=== PATIENT | male | born 1940 | race Caucasian/White ===

== ENCOUNTER 2017-10-20 09:53 | Outpatient (CLI) | payer MEDICARE, BC ==
[~2017-10-20] VITALS: Ht 188 cm; Wt 77.3 kg
[2017-10-20] MEDS ORDERED: CALC-140 PO (10:12)
[2017-10-20] MEDS ORDERED: L GA1CAP2 PO (10:12)
[2017-10-20] MEDS ORDERED: AMLO10TA2 PO (10:12)
[2017-10-20] MEDS ORDERED: METH2.5T PO (10:12)
[2017-10-20] MEDS ORDERED: TRAM50TA2 PO (10:12)
[2017-10-20] MEDS ORDERED: HYDR25TA4 PO (10:12)
[2017-10-20] MEDS ORDERED: METO-333 PO (10:12)
[2017-10-20] MEDS ORDERED: GLUC1CAP37 PO (10:12)
[2017-10-20] MEDS ORDERED: PYRI100T2 PO (10:12)
[2017-10-20] MEDS ORDERED: CLOP75TA28 PO (10:12)
[2017-10-20] MEDS ORDERED: FLUT9.9S NS (10:12)
[2017-10-20] MEDS ORDERED: FOLI1TAB24 PO (10:12)
[2017-10-20] MEDS ORDERED: ASPI-999 PO (10:12)
[2017-10-20] MEDS ORDERED: HYDR200T46 PO (10:12)
[2017-10-20] MEDS ORDERED: CYAN-23 PO (10:12)
[2017-10-20] MEDS ORDERED: SIMV20TA3 PO (10:12)
[2017-10-20] MEDS ORDERED: NITR0.4T3 SL (10:12)
[2017-10-20] MEDS ORDERED: POTA10TA10 PO (10:13)
[2017-10-20 10:21] VITALS: BP 161/86
[2017-10-20 10:46] LABS: BASOPHILS % (AUTO) 0 % (0-10); EOSINOPHILS # (AUTO) 0.1 10^3/uL (0.0-0.3); EOSINOPHILS % (AUTO) 1 % (0-10); HEMATOCRIT 46 % (40-54); HEMOGLOBIN 15.4 G/DL (13.3-17.7); LYMPHOCYTES # (AUTO) 1.6 X 10^3 (1.0-4.0); LYMPHOCYTES % (AUTO) 10 % (12-44); MEAN CORPUSCULAR HEMOGLOBIN 31 PG (25-34); MEAN CORPUSCULAR HGB CONC 34 G/DL (32-36); MEAN CORPUSCULAR VOLUME 91 FL (80-99); MEAN PLATELET VOLUME 9.7 FL (7.4-10.4); MONOCYTES % (AUTO) 6 % (0-12); NEUTROPHILS % (AUTO) 83 % (42-75); PLATELET COUNT 218 10^3/uL (130-400); RED BLOOD COUNT 4.99 10^6/uL (4.35-5.85); RED CELL DISTRIBUTION WIDTH 15.3 % (10.0-14.5); WHITE BLOOD COUNT 15.7 10^3/uL (4.3-11.0)
[2017-10-20 11:02] LABS: BUN/CREATININE RATIO 27; CALCIUM 10.4 MG/DL (8.5-10.1); CARBON DIOXIDE 28 MMOL/L (21-32); CHLORIDE 103 MMOL/L (98-107); CREATININE SERUM 0.93 MG/DL (0.60-1.30); GFR ESTIMATED > 60; GLUCOSE 87 MG/DL (70-105); POTASSIUM 3.4 MMOL/L (3.6-5.0); SODIUM 141 MMOL/L (135-145)
--- NOTE | 2017-10-20 11:02 | Diagnostic Imaging Report ---
CLINICAL INDICATION: Preop chest x-ray for sinus surgery. EXAM: Chest x-ray PA and lateral views. COMPARISON: None. FINDINGS: There is increased lung markings in right inferior perihilar region and medial left lung base which may represent atelectasis or scarring. There is no definite lung infiltrate seen. There is no pleural effusion or pneumothorax. There is postop changes to the chest consistent with CABG with sternotomy wires mediastinal clips. Cardiac silhouette and pulmonary vasculature is within normal limits. There are degenerative spurs throughout the thoracic spine. IMPRESSION: 1: There is suspected mild atelectasis or scarring in the inferior right perihilar region and medial left lung base. 2: There is no definite radiographic evidence of acute cardiopulmonary process. 3: Postop changes to the chest consistent with CABG. Dictated by: Dictated on workstation # [id number]
[2017-10-20 11:54] LABS: ANISOCYTOSIS SLIGHT; BAND NEUTROPHILS 3 %; BASOPHILS % (MANUAL) 0 %; EOSINOPHILS % (MANUAL) 0 %; LYMPHOCYTES % (MANUAL) 17 %; MONOCYTES % (MANUAL) 7 %; NEUTROPHILS % (MANUAL) 73 %
== END 2017-10-20 14:18 | disposition home or self-care (01) ==
LOC: PREOP 09:53 → EDUNIT# 10:00 → PREOP 14:18
PROVIDERS: ATTEND Otolaryngology Otolaryngology/Facial Plastic Surgery
DX: Z01.810 Encounter for preprocedural cardiovascular examination (principal); Z01.811 Encounter for preprocedural respiratory examination; Z01.812 Encounter for preprocedural laboratory examination; Z11.2 Encounter for screening for other bacterial diseases; J32.9 Chronic sinusitis, unspecified; J34.3 Hypertrophy of nasal turbinates; Z79.82 Long term (current) use of aspirin; Z79.02 Long term (current) use of antithrombotics/antiplatelets; Z79.899 Other long term (current) drug therapy
CPT/HCPCS: 36415; 71046; 80048; 85007; 85027; 87081; 93005

== ENCOUNTER 2017-10-22 06:19 | Day surgery (SDC) | payer MEDICARE ==
[~2017-10-22] VITALS: Ht 188 cm; Wt 77.3 kg
[~2017-10-22 06:19] MED LIST: AMLO10TA2 PO; ASPI-999 PO; CALC-140 PO; CLOP75TA28 PO; CYAN-23 PO; FLUT9.9S NS; FOLI1TAB24 PO; GLUC1CAP37 PO; HYDR200T46 PO; HYDR25TA4 PO; L GA1CAP2 PO; METH2.5T PO; METO-333 PO; NITR0.4T3 SL; POTA10TA10 PO; PYRI100T2 PO; SIMV20TA3 PO; TRAM50TA2 PO
[2017-10-22] MEDS ORDERED: HYDROCORTISONE 100 MG/2 ML (Solu-CORTEF) VIAL IV ONE (06:30)
[2017-10-22] MEDS ORDERED: AMPICILLIN/SULBACTAM INJECTION 1.5 GM in NS (IVPB) 50 ML IV ONE (06:30)
[2017-10-22 06:45] VITALS: BP 184/82
--- NOTE | 2017-10-22 06:59 | Progress Note-Pre Operative ---
Pre-Operative Progress Note H&P Reviewed The H&P was reviewed, patient examined and no changes noted. Date Seen by Provider: Oct 22, 2017 Time Seen by Provider: 06:45 Date H&P Reviewed: Oct 22, 2017 Time H&P Reviewed: 06:45 Pre-Operative Diagnosis: Bialt Chronic Sinusitis, Bilat HYper of Inf Turbs MIKE HSIEH MD Oct 22, 2017 6:59 am
[2017-10-22] MEDS ORDERED: CATHETER FLUSH 10 ML SYR IV PRN (07:00)
[2017-10-22] MEDS: LACTATED RINGERS 1,000 ML IV PRN ×2 (07:04→07:50)
[2017-10-22] MEDS ORDERED: COCAINE HCL 4% 2 ML SYR ONE (07:20)
[2017-10-22] MEDS ORDERED: LIDOCAINE/EPI 1%-1:200,000 (XYLOCAINE) 10 ML VIAL ONE (07:21)
[2017-10-22] MEDS ORDERED: PHENYLEPHRINE 0.5% NASAL SPR (NEO-SYNEPHRINE) REG ONE (07:21)
[2017-10-22] MEDS ORDERED: BSS 15 ML ONE (07:21)
[2017-10-22] MEDS ORDERED: LACTATED RINGERS 1,000 ML IV ONE (07:47)
[2017-10-22] MEDS ORDERED: ROCURONIUM 50 MG/5 ML (ZEMURON) VIAL IV ONE (07:47)
[2017-10-22] MEDS ORDERED: fentaNYL INJECTION 100 MCG/2 ML AMP ONE (07:47)
[2017-10-22] MEDS ORDERED: LIDOCAINE PF 2% 5 ML (XYLOCAINE) VIAL ONE (07:47)
[2017-10-22] MEDS ORDERED: LIDOCAINE JELLY 2% (XYLOCAINE) 5 ML TUBE ONE (07:47)
[2017-10-22] MEDS ORDERED: proPOfol 200 MG/20 ML (DIPRIVAN) VIAL IV ONE (07:47)
[2017-10-22] MEDS ORDERED: ONDANSETRON 4 MG/2 ML (SDV) Z0FRAN ONE (07:47)
[2017-10-22] MEDS ORDERED: MIDAZOLAM 2 MG/2 ML (VERSED) VIAL ONE (07:48)
[2017-10-22] MEDS ORDERED: GLYCOPYRROLATE 0.2 MG/ML (ROBINUL) 2 ML VIAL ONE (09:02)
[2017-10-22] MEDS ORDERED: NEOSTIGMINE (BLOXIVERZ ) 1 MG/1ML 10 ML VIAL ONE (09:02)
[2017-10-22] MEDS ORDERED: D5 1/2 NS W/KCL 20 MEQ/L 1,000 ML IV SCH (09:03)
--- NOTE | 2017-10-22 09:03 | Progress Note-Post Operative ---
Post-Operative Progess Note Surgeon (s)/Leather Carver (s) Surgeon MIKE HSIEH MD Leather Carver n/a Pre-Operative Diagnosis Bialt Chronic Sinusitis, Bilat HYper of Inf Turbs Post-Operative Diagnosis same Post-Op Procedure Note Date of Procedure: Oct 22, 2017 Name of Procedure Performed: Bilat ESS, Bilat REd of Inf Turbs Description & Findings Description and Findings: n/a Anesthesia Type get Estimated Blood Loss minimal Packing none. Specimen(s) collected/removed bilat chornic sinus disease MIKE HSIEH MD Oct 22, 2017 9:03 am
[2017-10-22] MEDS ORDERED: HYDROcodone/APAP 5 MG/325 MG (LORTAB) TAB PO PRN (09:15)
[2017-10-22] MEDS ORDERED: MEPERIDINE (DEMEROL) INJ 50 MG/ML IVP PRN (09:15)
[2017-10-22] MEDS ORDERED: predniSONE 20 MG TAB PO ONE (09:15)
[2017-10-22] MEDS ORDERED: ONDANSETRON 4 MG/2 ML (SDV) Z0FRAN IVP PRN (09:15)
[2017-10-22] MEDS ORDERED: ACETAMINOPHEN 325 MG TABLET/CAPLET (TYLENOL) PO PRN (09:15)
[2017-10-22] MEDS ORDERED: PROMETHAZINE INJ 25 MG/ML (PHENERGAN) AMP IVP PRN (09:15)
[2017-10-22] MEDS: morphine INJ 10 MG/ML 1ML (SYR OR VIAL) IVP PRN ×2 (09:23→09:30)
[2017-10-22] MEDS ORDERED: AMOX-355 PO (10:05)
[2017-10-22] MEDS ORDERED: ACHD5005 PO (10:05)
[2017-10-22] MEDS ORDERED: PRD20T PO (10:05)
[2017-10-22 10:15] VITALS: BP 179/101
[2017-10-22 10:45] VITALS: BP 179/98
[2017-10-22 11:15] VITALS: BP 169/79
[2017-10-22 11:40] VITALS: BP 169/79
[2017-10-22] MEDS ORDERED: HYDROcodone/APAP 5 MG/325 MG (LORTAB) TAB PO ONE (12:30)
--- OUTSIDE RECORDS SUMMARY | 2017-10-22 23:50 | XMS REPORT | Clinical Summary ---
Author Author Admin, NUZAHT Organization [facility] Address Unknown Phone Unavailable Allergies, Adverse Reactions, Alerts Allergy Name Reaction Description Start Date Severity Status Provider NEOSPORIN Critical Active SHASTA Rosenberg TETRACYCLINE Critical Active SHASTA Rosenberg BACTRIM Critical Active SHASTA Rosenberg HYZAAR Critical Active SHASTA Rosenberg Conditions or Problems Problem Name Problem Code Onset Date Status Entry Date Provider Comment Standard Description Annotate CORONARY HEART DISEASE 414.00 Active SHASTA Rosenberg Coronary atherosclerosis of unspecified type of vessel, [place] or graft HYPERTENSION 401.9 Active SHASTA Rosenberg Unspecified essential hypertension RHEUMATOID ARTHRITIS 714.0 Active SHASTA Rosenberg Rheumatoid arthritis FH STROKE V17.1 Active SHASTA Rosenberg Family history of stroke (cerebrovascular) OSTEOARTHRITIS 715.90 Active Ramos Myers MD Osteoarthrosis, unspecified whether generalized or localized, involving unspecified site CHOLELITHIASIS 574.20 Active Ramos Myers MD Calculus of gallbladder without mention of cholecystitis, without mention of obstruction AFTERCARE FLW SURG TEETH ORL CAV&DIGESTV SYS NEC V58.75 Active Ramos Myers MD Aftercare following surgery of the teeth,oral cavity and digestive system, NEC FINGER SUP FB W/O JUWAN OPEN WOUND&W/O MENTION INF 915.6 Active Ramos Myers MD Superficial foreign body (splinter) of fingers , without major open wound and without mention of infection JALEN NEOPLASM SKIN UPPER LIMB INCLUDING SHOULDER 216.6 Active Ramos Myers MD Benign neoplasm of skin of upper limb, including shoulder Hydrocele Active Mukund Rivera MD Hydrocele , unspecified Epididymitis, right 604.90 Active Mukund Rivera MD Orchitis and epididymitis, unspecified Spermatocele Active Mukund Rivera MD Spermatocele Urinary Retention 788.20 Active Mukund Rivera MD Retention of urine, unspecified Scrotal hematoma 608.83 Active Mukund Rivera MD Vascular disorders of male genital organs Medication List Medication Instructions Start Date Stop Date Generic Name NDC Status Provider Patient Instruction TRAMADOL HCL 50 MG TABS Take one by mouth daily as needed TRAMADOL HCL 82174697777 No Longer Active Mukund Rivera MD Active AMLODIPINE BESYLATE 10 MG TABS 1 tablet by mouth daily AMLODIPINE BESYLATE 22904422809 No Longer Active Mukund Rivera MD Active SIMVASTATIN 20 MG ORAL TABS 1 tab by mouth daily SIMVASTATIN 20191398436 No Longer Active Mukund Rivera MD Active PLAVIX 75 MG ORAL TABS 1 tab by mouth daily CLOPIDOGREL BISULFATE 45536358829 No Longer Active Mukund Rivera MD Active HYDROXYCHLOROQUINE SULFATE 200 MG TABS by mouth twice a day 12/15 HYDROXYCHLOROQUINE SULFATE 84496189047 No Longer Active Mukund Rivera MD Active CIPRO 500 MG TAB 1 tablet two times daily CIPROFLOXACIN HCL 52924177762 No Longer Active Mukund Rivera MD Active OMEPRAZOLE 20 MG CPDR 1 tablet by mouth daily, as needed OMEPRAZOLE 19220565494 No Longer Active Mukund Rivera MD Active OREILLY [employer] CAPS Take one by mouth daily PROBIOTIC PRODUCT 83083726866 Active Ramos Myers MD Active KLOR-CON 10 10 MEQ CR-TABS Take one by mouth daily POTASSIUM CHLORIDE 81768127420 Active Ramos Myers MD Active FUROSEMIDE 20 MG TAB 1 tablet by mouth daily FUROSEMIDE 29097366279 Active Ramos Myers MD Active METHOTREXATE 2.5 MG TABS 6 tabs once a week METHOTREXATE SODIUM 66763601819 Active Ramos Myers MD Active DICLOFENAC SODIUM 75 MG TBEC Take one by mouth daily as needed DICLOFENAC SODIUM 18675928866 No Longer Active Ramos Myers MD Active SIMVASTATIN 20 MG TABS 1 tab daily at bedtime SIMVASTATIN 37275681800 No Longer Active Ramos Myers MD Active EQL [id number] 500-400-166 MG TABS Take one by mouth daily [id number] 56280689478 Active Ramos Myers MD Active CALCIUM 1500 MG TAB Take one by mouth daily CALCIUM CARBONATE 84269690629 Active Ramos Myers MD Active B-12 1000 MCG CR-TABS Take one by mouth daily CYANOCOBALAMIN 27158120222 Active Ramos Myers MD Active VITAMIN B-6 100 MG TABS Take one by mouth daily PYRIDOXINE HCL 32438283470 Active Ramos Myers MD Active ASPIRIN 81 MG TAB 1 tablet by mouth daily ASPIRIN 64870015649 Active Ramos Myers MD Active FOLIC ACID 1 MG TABS Take one by mouth daily FOLIC ACID 82482421646 Active Ramos Myers MD Active HYDROCHLOROTHIAZIDE 25 MG TABS 1 tablet by mouth daily HYDROCHLOROTHIAZIDE 81380554314 Active Ramos Myers MD Active METOPROLOL SUCCINATE ER 25 MG [id number] Take one by mouth twice daily METOPROLOL SUCCINATE 19599307086 Active Ramos Myers MD Active SIMVASTATIN 20 MG TABS 1 tab daily at bedtime SIMVASTATIN 20 MG TABS 476617 SIMVASTATIN Inactive DICLOFENAC SODIUM 75 MG TBEC Take one by mouth daily as needed DICLOFENAC SODIUM 75 MG TBEC 958701 DICLOFENAC SODIUM Inactive OMEPRAZOLE 20 MG CPDR 1 tablet by mouth daily, as needed OMEPRAZOLE 20 MG CPDR 693252 OMEPRAZOLE Inactive HYDROXYCHLOROQUINE SULFATE 200 MG TABS by mouth twice a day 12/15 HYDROXYCHLOROQUINE SULFATE 200 MG TABS 633552 HYDROXYCHLOROQUINE SULFATE Inactive PLAVIX 75 MG ORAL TABS 1 tab by mouth daily PLAVIX 75 MG ORAL TABS 088973 CLOPIDOGREL BISULFATE Inactive SIMVASTATIN 20 MG ORAL TABS 1 tab by mouth daily SIMVASTATIN 20 MG ORAL TABS 412534 SIMVASTATIN Inactive AMLODIPINE BESYLATE 10 MG TABS 1 tablet by mouth daily AMLODIPINE BESYLATE 10 MG TABS 460782 AMLODIPINE BESYLATE Inactive TRAMADOL HCL 50 MG TABS Take one by mouth daily as needed TRAMADOL HCL 50 MG TABS 146560 TRAMADOL HCL Inactive CIPRO 500 MG TAB 1 tablet two times daily CIPRO 500 MG TAB 899752 CIPROFLOXACIN HCL Inactive Advance Directives Directive Description Start Date PERMISSION TO [facility]ARE [facility]IV[facility] WILL ON FILE Vital Signs Date Name Value Unit Range Description blood pressure, diastolic - 8462-4 70 mm[Hg] BP desai blood pressure, systolic - 8480-6 120 mm[Hg] BP sys pulse rate E&M - 8867-4 75 /min Heart rate temperature E&M 98.4 [degF] Body temperature weight E&M - 3141-9 181 [lb_av] Weight Measured blood pressure, diastolic - 8462-4 78 mm[Hg] BP desai blood pressure, systolic - 8480-6 165 mm[Hg] BP sys weight E&M - 3141-9 183 [lb_av] Weight Measured Encounters Code Encounter Date Provider Facility CPT-21384 Level 3 Est. Patient 23:28:14 CDT Mukund Rivera MD [facility] CPT-90865 Level 3 Est. Patient 14:56:41 CORE FITTER Mukund Rivera MD [facility] CPT-89754 Level 3 Est. Patient 16:05:06 CORE FITTER Mukund Rivera MD [facility] CPT-80397 Level 3 Est. Patient 14:06:16 CORE FITTER Mukund Rivera MD [facility] CPT-19419 Level 3 New Patient 14:46:52 CORE FITTER Mukund Rivera MD [facility] CPT-18701 Level 2 Est. Patient 14:01:01 CDT Ramos Myers MD [facility] CPT-63631 Level 2 Est. Patient 16:14:11 CDT Ramos Myers MD [facility] CPT-63861 Level 2 Est. Patient 14:39:48 CDT Ramos Myers MD [facility] CPT-65182 Level 3 Est. Patient 10:13:26 CORE FITTER Ramos Myers MD [facility] Procedures Code Procedure Name Date Entry Date Standard Description CPT-A4357 Overnight urinary bag 10:24:50 CDT CPT-A4340 Indwell urin cath coude 10:24:50 CDT CPT-01313 Insert temp indwelling bld cath comp 10:24:50 CDT 01/14 CPT-A4340 Indwell urin cath coude 15:42:37 CDT CPT-03736 Postop F/U Visit 20:56:46 CDT CPT-08948 Aspiration hydrocele 15:23:51 CORE FITTER CPT-LR Lesion Removal 14:01:01 CDT CPT-LR Lesion Removal 16:14:11 CDT CPT-99608 Postop F/U Visit 15:07:25 CORE FITTER
--- OUTSIDE RECORDS SUMMARY | 2017-10-22 23:51 | XMS REPORT | Clinical Summary ---
Author Author Admin, NUZHAT Organization [facility] Address Unknown Phone Unavailable Allergies, Adverse [...] Coronary atherosclerosis of unspecified type of vessel, [place] or graft HYPERTENSION 401.9 Active SHASTA Rosenberg [...] JUWAN OPEN WOUND&W/O MENTION INF 915.6 Active Rmaos Myers MD Superficial foreign body (splinter) of fingers , without major open wound and without mention of infection JALEN NEOPLASM SKIN UPPER LIMB INCLUDING SHOULDER 216.6 Active Ramos Myers MD Benign neoplasm of skin of upper limb, including shoulder Hydrocele Active Mukund Rivera MD Hydrocele , unspecified Epididymitis, right 604.90 Active Mukund Rivear MD Orchitis and epididymitis, unspecified Spermatocele Active [...] by mouth daily as needed TRAMADOL HCL 09447674389 No Longer Active Mukund Rivera MD Active AMLODIPINE BESYLATE 10 MG TABS 1 tablet by mouth daily AMLODIPINE BESYLATE 31389088303 No Longer Active Mukund Rivera MD Active SIMVASTATIN 20 MG ORAL TABS 1 tab by mouth daily SIMVASTATIN 68536784759 No Longer Active Mukund Rivera MD Active PLAVIX 75 MG ORAL TABS 1 tab by mouth daily CLOPIDOGREL BISULFATE 06396602963 No Longer Active Mukund Rivera MD Active HYDROXYCHLOROQUINE SULFATE 200 MG TABS by mouth twice a day 12/15 HYDROXYCHLOROQUINE SULFATE 75233114271 No Longer Active Mukund Rivera MD Active CIPRO 500 MG TAB 1 tablet two times daily CIPROFLOXACIN HCL 80341863322 No Longer Active Mukund Rivera MD Active OMEPRAZOLE 20 MG CPDR 1 tablet by mouth daily, as needed OMEPRAZOLE 67908901245 No Longer Active Mukund Rivera MD Active [employer] CAPS Take one by mouth daily PROBIOTIC PRODUCT 77075174494 Active Ramos Myers MD Active KLOR-CON 10 10 MEQ CR-TABS Take one by mouth daily POTASSIUM CHLORIDE 88819705949 Active Ramos Myers MD Active FUROSEMIDE 20 MG TAB 1 tablet by mouth daily FUROSEMIDE 82235376674 Active Ramos Myers MD Active METHOTREXATE 2.5 MG TABS 6 tabs once a week METHOTREXATE SODIUM 27870401075 Active Ramos Myers MD Active DICLOFENAC SODIUM 75 MG TBEC Take one by mouth daily as needed DICLOFENAC SODIUM 99206213343 No Longer Active Ramos Myers MD Active SIMVASTATIN 20 MG TABS 1 tab daily at bedtime SIMVASTATIN 82954892479 No Longer Active Ramos Myers MD Active EQL [id number]-[id number]-GLI 500-400-166 MG TABS Take one by mouth daily [id number]-[id number]-PLR 80624832389 Active Ramos Myers MD Active CALCIUM 1500 MG TAB Take one by mouth daily CALCIUM CARBONATE 20946529143 Active Ramos Myers MD Active B-12 1000 MCG CR-TABS Take one by mouth daily CYANOCOBALAMIN 99721777684 Active Ramos Myers MD Active VITAMIN B-6 100 MG TABS Take one by mouth daily PYRIDOXINE HCL 16028430318 Active Ramos Myers MD Active ASPIRIN 81 MG TAB 1 tablet by mouth daily ASPIRIN 97069172136 Active Ramos Myers MD Active FOLIC ACID 1 MG TABS Take one by mouth daily FOLIC ACID 90789560103 Active Ramos Myers MD Active HYDROCHLOROTHIAZIDE 25 MG TABS 1 tablet by mouth daily HYDROCHLOROTHIAZIDE 29581997484 Active Ramos Myers MD Active METOPROLOL SUCCINATE ER 25 MG IN37F-BFA Take one by mouth twice daily METOPROLOL SUCCINATE 20206238279 Active Ramos Myers MD Active SIMVASTATIN 20 MG TABS 1 tab daily at bedtime SIMVASTATIN 20 MG TABS 172745 SIMVASTATIN Inactive DICLOFENAC SODIUM 75 MG TBEC Take one by mouth daily as needed DICLOFENAC SODIUM 75 MG TBEC 544791 DICLOFENAC SODIUM Inactive OMEPRAZOLE 20 MG CPDR 1 tablet by mouth daily, as needed OMEPRAZOLE 20 MG CPDR 087468 OMEPRAZOLE Inactive HYDROXYCHLOROQUINE SULFATE 200 MG TABS by mouth twice a day 12/15 HYDROXYCHLOROQUINE SULFATE 200 MG TABS 389113 HYDROXYCHLOROQUINE SULFATE Inactive PLAVIX 75 MG ORAL TABS 1 tab by mouth daily PLAVIX 75 MG ORAL TABS 751336 CLOPIDOGREL BISULFATE Inactive SIMVASTATIN 20 MG ORAL TABS 1 tab by mouth daily SIMVASTATIN 20 MG ORAL TABS 874062 SIMVASTATIN Inactive AMLODIPINE BESYLATE 10 MG TABS 1 tablet by mouth daily AMLODIPINE BESYLATE 10 MG TABS 510320 AMLODIPINE BESYLATE Inactive TRAMADOL HCL 50 MG TABS Take one by mouth daily as needed TRAMADOL HCL 50 MG TABS 339553 TRAMADOL HCL Inactive CIPRO 500 MG TAB 1 tablet two times daily CIPRO 500 MG TAB 350283 CIPROFLOXACIN HCL Inactive Advance Directives Directive Description [...] Measured Encounters Code Encounter Date Provider Facility CPT-53557 Level 3 Est. Patient 23:28:14 CDT Mukund Rivera MD [facility] CPT-00570 Level 3 Est. Patient 14:56:41 COST ACCOUNTING MANAGER Mukund Rivera MD [facility] CPT-49752 Level 3 Est. Patient 16:05:06 COST ACCOUNTING MANAGER Mukund Rivera MD [facility] CPT-80925 Level 3 Est. Patient 14:06:16 COST ACCOUNTING MANAGER Mukund Rivera MD [facility] CPT-88902 Level 3 New Patient 14:46:52 COST ACCOUNTING MANAGER Mukund Rivera MD [facility] CPT-06116 Level 2 Est. Patient 14:01:01 CDT Ramos Myers MD [facility] CPT-90928 Level 2 Est. Patient 16:14:11 CDT Ramos Myers MD [facility] CPT-48857 Level 2 Est. Patient 14:39:48 CDT Ramos Myers MD [facility] CPT-49434 Level 3 Est. Patient 10:13:26 COST ACCOUNTING MANAGER Ramos Myers MD [facility] Procedures Code Procedure Name Date Entry Date Standard Description CPT-A4357 Overnight urinary bag 10:24:50 CDT CPT-A4340 Indwell urin cath coude 10:24:50 CDT CPT-89134 Insert temp indwelling bld cath comp 10:24:50 CDT 01/14 CPT-A4340 Indwell urin cath coude 15:42:37 CDT CPT-76687 Postop F/U Visit 20:56:46 CDT CPT-48364 Aspiration hydrocele 15:23:51 COST ACCOUNTING MANAGER CPT-LR Lesion Removal 14:01:01 CDT CPT-LR Lesion Removal 16:14:11 CDT CPT-91478 Postop F/U Visit 15:07:25 COST ACCOUNTING MANAGER
--- OUTSIDE RECORDS SUMMARY | 2017-10-22 23:51 | XMS REPORT ---
Author Author [facility] Medical Staff Organization [facility] Address [address] [place] [id number] Phone [phone] Summary purpose TRANSITION OF CARE AUTO GENERATION Chief Complaint and Reason for Visit No authorized Reason for Visit (Admitting Diagnosis) is available for this visit. Problem list No authorized problems tracked for continuity of care are available for this visit. Encounters No authorized problems tracked for encounter diagnoses are available for this visit. Medications No medications recorded for this patient visit Allergies, adverse reactions, alerts Allergen Category Ingredient Status Reaction Severity Onset Bactrim Drug Allergy Bactrim Confirmed or Verified itching Bactrim Drug Allergy Trimethoprim Confirmed or Verified itching Bactrim Drug Allergy Sulfamethoxazole Confirmed or Verified itching Neosporin Drug Allergy Neosporin Confirmed or Verified just doesn't heal, redness Neosporin Drug Allergy Gramicidin D Confirmed or Verified just doesn't heal , redness Neosporin Drug Allergy Polymyxin B Confirmed or Verified just doesn't heal , redness Neosporin Drug Allergy Neomycin Confirmed or Verified just doesn't heal, redness Neosporin Drug Allergy Bacitracin Confirmed or Verified just doesn't heal, redness Tetracycline Drug Allergy Tetracycline Confirmed or Verified itching Hyzaar Drug Allergy Hyzaar Confirmed or Verified itching Hyzaar Drug Allergy Hyzaar Confirmed or Verified Nausea Hyzaar Drug Allergy Losartan Confirmed or Verified Nausea Hyzaar Drug Allergy Losartan Confirmed or Verified itching Hyzaar Drug Allergy hydrochlorothiazide Confirmed or Verified Nausea Hyzaar Drug Allergy hydrochlorothiazide Confirmed or Verified itching Immunizations No immunizations recorded for this patient visit Relevant diagnostic tests and/or laboratory data RESULTS Chemistry [id number]:42:00 Result Normal Range Units Sodium 142 134-145 mEq/l Potassium 3.7 3.5-5.1 mEq/l Chloride 104 98-107 mEq/l CO2 H 28.5 22-28 mEq/l Glucose 91 70-105 mg/dl BUN H 19 7-18 mg/dl Creatinine 1.14 0.6-1.3 mg/dl Calcium 9.5 8.4-10.2 mg/dl TP - Total Protein 7.0 6.0-8.3 g/dl Albumin 4.2 3.5-5 g/dl Bilirubin - Total 0.8 0.1-1.0 mg/dl AST 42 10-42 IU/L ALT 54 12-65 IU/L ALP 79 39-107 IU/L Osmolality 285.0 280-300 mOsm/L Albumin/Globulin Ratio 1.5 0-8 Anion GAP 9.5 8-16 BUN/Creatinine Ratio 16.7 10-20 Estimated GFR 63 >=60 mL/min/1.7 C-Reactive Protein <=0.2 0-1 mg/dl Hematology :42:00 Result Normal Range Units WBC 8.4 4.8-10.8 103/uL RBC 4.8 4.7-6.1 106/uL HGB 15.1 13.0-18.0 g/dl HCT 45.0 41.9-52.0 % MCV 93.9 80-94 FL MCH H 31.5 27-31 pg MCHC 33.6 33-37 g/dl RDW 14.0 11.5-15.5 % PLT 188 130-400 103/uL MPV 10.0 7.3-10.4 FL Neutro % H 71.1 40-70 % Lymph % L 15.1 20-40 % [place] % 9.7 0-10.0 % Eos % 3.1 0-7.0 % Baso % 0.6 0-2 % Neutro # 5.9 1.5-7.5 103/uL Lymph # 1.3 0.9-4.0 103/uL [place] # 0.8 0-0.8 103/uL Eos # 0.3 0-0.6 103/uL Baso # 0.1 0-0.1 103/uL [place]ology - [place] [place]:00 Result Normal Range Units Sed Rate 3 0-20 Radiology Results :42:00 Result Normal Range Units MPV 10.0 7.3-10.4 FL History of procedures No procedures recorded for this patient visit. Functional status No functional or cognitive status observations are available for this visit. Vital signs No authorized vital signs are available for this visit. Social history No Social History or smoking status observations were recorded for this visit. ( Unknown if ever smoked.) Treatment Plan No treatment plan text is available for this visit. Hospital discharge instructions No discharge instruction text is available for this visit.
--- OUTSIDE RECORDS SUMMARY | 2017-10-22 23:51 | XMS REPORT | Clinical Summary ---
Author Author Admin, NUZHAT Organization 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 Hematuria 599.70 Active Mukund Rivera MD Hematuria, unspecified Acute UTI 599.0 Active Mukund Rivera MD Urinary tract infection, site not specified Bladder Calculus Active Mukund Rivera MD Renal calculus, left 592.0 Active Mukund Rivera MD Calculus of kidney Medication List Medication Instructions Start Date Stop Date Generic Name NDC Status Provider Patient Instruction TRAMADOL HCL 50 MG ORAL TABLET Take one by mouth daily as needed TRAMADOL HCL 21657752694 No Longer Active Mukund Rivera MD Active AMLODIPINE BESYLATE 10 MG ORAL TABLET 1 tablet by mouth daily AMLODIPINE BESYLATE 91010912503 No Longer Active Mukund Rivera MD Active SIMVASTATIN 20 MG ORAL TABLET 1 tab by mouth daily SIMVASTATIN 17625390844 No Longer Active Mukund Rivera MD Active PLAVIX 75 MG ORAL TABLET 1 tab by mouth daily CLOPIDOGREL BISULFATE 94764707071 No Longer Active Mukund Rivera MD Active HYDROXYCHLOROQUINE SULFATE 200 MG ORAL TABLET by mouth twice a day HYDROXYCHLOROQUINE SULFATE 78361988545 No Longer Active Mukund Rivera MD Active CIPRO 500 MG ORAL TABLET 1 tablet two times daily CIPROFLOXACIN HCL 63910867039 No Longer Active Mukund Rivera MD Active OMEPRAZOLE 20 MG ORAL CAPSULE DELAYED RELEASE 1 tablet by mouth daily, as needed OMEPRAZOLE 47003838256 No Longer Active uMkund Rivera MD Active OREILLY [facility] ORAL CAPSULE Take one by mouth daily PROBIOTIC PRODUCT 55130767269 Active Ramos Meyrs MD Active KLOR-CON 10 10 MEQ ORAL TABLET EXTENDED RELEASE Take one by mouth daily 05/31 POTASSIUM CHLORIDE 98011212981 Active Ramos Myers MD Active FUROSEMIDE 20 MG ORAL TABLET 1 tablet by mouth daily FUROSEMIDE 52687810003 Active Ramos Myers MD Active METHOTREXATE 2.5 MG ORAL TABLET 6 tabs once a week METHOTREXATE SODIUM 84690428792 Active Ramos Myers MD Active DICLOFENAC SODIUM 75 MG ORAL TABLET DELAYED RELEASE Take one by mouth daily as needed DICLOFENAC SODIUM 27360468330 No Longer Active Ramos Myers MD Active SIMVASTATIN 20 MG ORAL TABLET 1 tab daily at bedtime SIMVASTATIN 50736882388 No Longer Active Ramos Myers MD Active EQL [id number] 500-400-166 MG ORAL TABLET Take one by mouth daily [id number] 45010769785 Active Ramos Myers MD Active CALCIUM CARBONATE 1500 (600 Ca) MG ORAL TABLET Take one by mouth daily 11/29 CALCIUM CARBONATE 28786427377 Active Ramos Myers MD Active B-12 1000 MCG ORAL TABLET EXTENDED RELEASE Take one by mouth daily CYANOCOBALAMIN 10039864569 Active Ramos Myers MD Active VITAMIN B-6 100 MG ORAL TABLET Take one by mouth daily PYRIDOXINE HCL 19878829812 Active Ramos Myers MD Active ASPIRIN 81 MG ORAL TABLET 1 tablet by mouth daily ASPIRIN 65396557650 Active Ramos Myers MD Active FOLIC ACID 1 MG ORAL TABLET Take one by mouth daily FOLIC ACID 43943462022 Active Ramos Myers MD Active HYDROCHLOROTHIAZIDE 25 MG ORAL TABLET 1 tablet by mouth daily HYDROCHLOROTHIAZIDE 86863520020 Active Ramos Myers MD Active METOPROLOL SUCCINATE ER 25 MG ORAL TABLET EXTENDED RELEASE 24 HOUR Take one by mouth twice daily METOPROLOL SUCCINATE 63497560679 Active Ramos Myers MD Active SIMVASTATIN 20 MG ORAL TABLET 1 tab daily at bedtime SIMVASTATIN 20 MG ORAL TABLET 754042 SIMVASTATIN Inactive DICLOFENAC SODIUM 75 MG ORAL TABLET DELAYED RELEASE Take one by mouth daily as needed DICLOFENAC SODIUM 75 MG ORAL TABLET DELAYED RELEASE 338084 DICLOFENAC SODIUM Inactive OMEPRAZOLE 20 MG ORAL CAPSULE DELAYED RELEASE 1 tablet by mouth daily, as needed OMEPRAZOLE 20 MG ORAL CAPSULE DELAYED RELEASE 119077 OMEPRAZOLE Inactive HYDROXYCHLOROQUINE SULFATE 200 MG ORAL TABLET by mouth twice a day HYDROXYCHLOROQUINE SULFATE 200 MG ORAL TABLET 612167 HYDROXYCHLOROQUINE SULFATE Inactive PLAVIX 75 MG ORAL TABLET 1 tab by mouth daily PLAVIX 75 MG ORAL TABLET 805048 CLOPIDOGREL BISULFATE Inactive SIMVASTATIN 20 MG ORAL TABLET 1 tab by mouth daily SIMVASTATIN 20 MG ORAL TABLET 717022 SIMVASTATIN Inactive AMLODIPINE BESYLATE 10 MG ORAL TABLET 1 tablet by mouth daily AMLODIPINE BESYLATE 10 MG ORAL TABLET 158292 AMLODIPINE BESYLATE Inactive TRAMADOL HCL 50 MG ORAL TABLET Take one by mouth daily as needed TRAMADOL HCL 50 MG ORAL TABLET 653340 TRAMADOL HCL Inactive CIPRO 500 MG ORAL TABLET 1 tablet two times daily CIPRO 500 MG ORAL TABLET 218674 CIPROFLOXACIN HCL Inactive Advance Directives Directive Description Start Date PERMISSION TO SHARE LIVING WILL ON FILE Vital Signs Date Name Value Unit Range Description blood pressure, diastolic 66 mm[Hg] BP desai blood pressure, systolic 141 mm[Hg] BP sys pulse rate E&M 67 /min Heart rate temperature E&M 98.2 [degF] Body temperature weight E&M 176 [lb_av] Weight Measured blood pressure, diastolic 65 mm[Hg] BP desai blood pressure, systolic 142 mm[Hg] BP sys pulse rate E&M 85 /min Heart rate temperature E&M 98.3 [degF] Body temperature weight E&M 174 [lb_av] Weight Measured blood pressure, diastolic 74 mm[Hg] BP desai blood pressure, systolic 163 mm[Hg] BP sys pulse rate E&M 65 /min Heart rate temperature E&M 98.7 [degF] Body temperature weight E&M 172 [lb_av] Weight Measured blood pressure, diastolic 70 mm[Hg] BP desai blood pressure, systolic 125 mm[Hg] BP sys pulse rate E&M 70 /min Heart rate temperature E&M 98.4 [degF] Body temperature weight E&M 181 [lb_av] Weight Measured blood pressure, diastolic 72 mm[Hg] BP desai blood pressure, systolic 120 mm[Hg] BP sys pulse rate E&M 71 /min Heart rate temperature E&M 98.4 [degF] Body temperature weight E&M 181 [lb_av] Weight Measured blood pressure, diastolic 70 mm[Hg] BP desai blood pressure, systolic 120 mm[Hg] BP sys pulse rate E&M 75 /min Heart rate temperature E&M 98.4 [degF] Body temperature weight E&M 181 [lb_av] Weight Measured blood pressure, diastolic 78 mm[Hg] BP desai blood pressure, systolic 165 mm[Hg] BP sys weight E&M 183 [lb_av] Weight Measured Diagnostic Results Date Name Value Unit Range Description Office Visit: 3-Month Followup Post TURP - Chemistry RBC, urine, dipstick non-hemolyzed moderate protein, total urine random trace mg/dL Office Visit: 3-Month Followup Post TURP - Urinalysis pH, urine, semiquantitative 6 specific gravity, urine 1.015 ketones, urine, by test strip negative bilirubin, urine negative glucose, urine, semiquantitative negative urine color yellow appearance, urine clear leukocyte esterase, urine, by dipstick 2+ nitrite, urine, semiquantitative negative urobilinogen, urine, semiquantitative (dipstick) negative protein, urine, semiquantitative (dipstick) negative Encounters Code Encounter Date Provider Facility CPT-79439 Level 3 Est. Patient 10:36:44 [employer]NAGER [employer] Mukund Rivera MD [facility] CPT-03291 Level 3 Est. Patient 19:01:41 CDT Mukund Rivera MD [facility] CPT-30010 Level 3 Est. Patient 23:28:14 CDT Mukund Rivera MD [facility] CPT-31131 Level 3 Est. Patient 14:56:41 MANAGER SHE[employer] Mukund Rivera MD [facility] CPT-10658 Level 3 Est. Patient 16:05:06 MANAGER [employer] Mukund Rivera MD [facility] CPT-06495 Level 3 Est. Patient 14:06:16 MANAGER [employer] Mukund Rivera MD [facility] CPT-33952 Level 3 New Patient 14:46:52 MANAGER [employer] Mukund Rivera MD [facility] CPT-65038 Level 2 Est. Patient 14:01:01 CDT Ramos Myers MD [facility] CPT-01073 Level 2 Est. Patient 16:14:11 CDT Ramos Myers MD [facility] CPT-62983 Level 2 Est. Patient 14:39:48 CDT Ramos Myers MD [facility] CPT-02373 Level 3 Est. Patient 10:13:26 MANAGER [employer] Ramos Myers MD [facility] Procedures Code Procedure Name Date Entry Date Standard Description CPT-14444 Abd single AP View - XRAY USE ONLY 09:40:50 MANAGER [employer] CPT-20592 Postop F/U Visit 10:44:37 CDT CPT-09580 Abd single AP View - XRAY USE ONLY 09:47:35 CDT CPT-03110 Cystoscopy 19:01:42 CDT CPT-84879 Abd single AP View - XRAY USE ONLY 11:35:07 CDT CPT-61803 Postop F/U Visit 10:30:43 CDT CPT-A4357 Overnight urinary bag 10:24:50 CDT CPT-A4340 Indwell urin cath coude 10:24:50 CDT CPT-91389 Insert temp indwelling bld cath comp 10:24:50 CDT 01/14 CPT-A4340 Indwell urin cath coude 15:42:37 CDT CPT-10752 Postop F/U Visit 20:56:46 CDT CPT-52616 Aspiration hydrocele 15:23:51 MANAGER SHELL CPT-LR Lesion Removal 14:01:01 CDT CPT-LR Lesion Removal 16:14:11 CDT CPT-08138 Postop F/U Visit 15:07:25 MANAGER SHELL
--- OUTSIDE RECORDS SUMMARY | 2017-10-22 23:52 | XMS REPORT | Clinical Summary ---
Author Author Admin, E Organization [facility] Address Unknown Phone Unavailable Allergies, Adverse Reactions, [...] Coronary atherosclerosis of unspecified type of vessel, [place] or graft HYPERTENSION 401.9 Active SHASTA Rosenberg [...] Mukund Rivera MD Orchitis and epididymitis, unspecified Medication List Medication Instructions Start Date Stop Date Generic Name NDC Status Provider Patient Instruction CIPRO 500 MG TAB 1 tablet two times daily CIPROFLOXACIN HCL 47781187293 No Longer Active Mukund Rivera MD Active PLAVIX 75 MG ORAL TABS 1 tab by mouth daily CLOPIDOGREL BISULFATE 27010798313 Active Mukund Rivera MD Active SIMVASTATIN 20 MG ORAL TABS 1 tab by mouth daily SIMVASTATIN 31802346476 Active Mukund Rivera MD Active OMEPRAZOLE 20 MG CPDR 1 tablet by mouth daily, as needed OMEPRAZOLE 98981083307 No Longer Active Mukund Rivera MD Active [employer] [facility] [employer] Take one by mouth daily PROBIOTIC PRODUCT 99505752209 Active Ramos Myers MD Active KLOR-CON 10 10 MEQ CR-TABS Take one by mouth daily POTASSIUM CHLORIDE 64497009654 Active Ramos Myers MD Active FUROSEMIDE 20 MG TAB 1 tablet by mouth daily FUROSEMIDE 59593838289 Active Ramos Myers MD Active HYDROXYCHLOROQUINE SULFATE 200 MG TABS by mouth twice a day HYDROXYCHLOROQUINE SULFATE 49616073658 Active Ramos Myers MD Active METHOTREXATE 2.5 MG TABS 6 tabs once a week METHOTREXATE SODIUM 14749146138 Active Ramos Myers MD Active DICLOFENAC SODIUM 75 MG TBEC Take one by mouth daily as needed DICLOFENAC SODIUM 76559260858 No Longer Active Ramos Myers MD Active SIMVASTATIN 20 MG TABS 1 tab daily at bedtime SIMVASTATIN 65630491774 No Longer Active Ramos Myers MD Active AMLODIPINE BESYLATE 10 MG TABS 1 tablet by mouth daily AMLODIPINE BESYLATE 24134650718 Active Ramos Myers MD Active EQL [id number] 500-400-166 MG TABS Take one by mouth daily [id number] 29153855448 Active Ramos Myers MD Active CALCIUM 1500 MG TAB Take one by mouth daily CALCIUM CARBONATE 48091707525 Active Ramos Myers MD Active B-12 1000 MCG CR-TABS Take one by mouth daily CYANOCOBALAMIN 02581228496 Active Ramos Myers MD Active VITAMIN B-6 100 MG TABS Take one by mouth daily PYRIDOXINE HCL 94552012249 Active Ramos Myers MD Active ASPIRIN 81 MG TAB 1 tablet by mouth daily ASPIRIN 96754753498 Active Ramos Myers MD Active TRAMADOL HCL 50 MG TABS Take one by mouth daily as needed TRAMADOL HCL 39247538925 Active Ramos Myers MD Active FOLIC ACID 1 MG TABS Take one by mouth daily FOLIC ACID 90270717106 Active Ramos Myers MD Active HYDROCHLOROTHIAZIDE 25 MG TABS 1 tablet by mouth daily HYDROCHLOROTHIAZIDE 96189571612 Active Ramos Myers MD Active METOPROLOL SUCCINATE ER 25 MG [id number] Take one by mouth twice daily METOPROLOL SUCCINATE 00900354757 Active Ramos Myers MD Active SIMVASTATIN 20 MG TABS 1 tab daily at bedtime SIMVASTATIN 20 MG TABS 798363 SIMVASTATIN Inactive DICLOFENAC SODIUM 75 MG TBEC Take one by mouth daily as needed DICLOFENAC SODIUM 75 MG TBEC 567980 DICLOFENAC SODIUM Inactive OMEPRAZOLE 20 MG CPDR 1 tablet by mouth daily, as needed OMEPRAZOLE 20 MG CPDR 117068 OMEPRAZOLE Inactive CIPRO 500 MG TAB 1 tablet two times daily CIPRO 500 MG TAB 929476 CIPROFLOXACIN HCL Inactive Advance Directives Directive Description Start Date PERMISSION TO SHARE LIVING WILL ON FILE Vital Signs Date Name Value Unit Range Description blood pressure, diastolic - 8462-4 62 mm[Hg] BP desai blood pressure, systolic - 8480-6 120 mm[Hg] BP sys pulse rate E&M - 8867-4 72 /min Heart rate temperature E&M 96.5 [degF] Body temperature weight E&M - 3141-9 180.5 [lb_av] Weight Measured blood pressure, diastolic - 8462-4 61 mm[Hg] BP desai blood pressure, systolic - 8480-6 150 mm[Hg] BP sys pulse rate E&M - 8867-4 60 /min Heart rate temperature E&M 96.4 [degF] Body temperature weight E&M - 3141-9 179.5 [lb_av] Weight Measured Encounters Code Encounter Date Provider Facility CPT-44501 Level 3 Est. Patient 14:06:16 [employer] Mukund Rivera MD [facility] CPT-53228 Level 3 New Patient 14:46:52 [employer] Mukund Rivera MD [facility] CPT-68762 Level 2 Est. Patient 14:01:01 CDT Ramos Myers MD [facility] CPT-06357 Level 2 Est. Patient 16:14:11 CDT Ramos Myers MD [facility] CPT-44814 Level 2 Est. Patient 14:39:48 CDT Ramos Myers MD [facility] CPT-84295 Level 3 Est. Patient 10:13:26 [employer] Ramos Myers MD [facility] Procedures Code Procedure Name Date Entry Date Standard Description CPT-82067 Aspiration hydrocele 15:23:51 [employer] CPT-LR Lesion Removal 14:01:01 CDT CPT-LR Lesion Removal 16:14:11 CDT CPT-06416 Postop F/U Visit 15:07:25 [employer]
--- OUTSIDE RECORDS SUMMARY | 2017-10-22 23:52 | XMS REPORT | Clinical Summary ---
Author Author Admin, NUZHAT Organization [facility] Address Unknown Phone Unavailable Allergies, Adverse Reactions, [...] Coronary atherosclerosis of unspecified type of vessel, [place] or graft HYPERTENSION 401.9 Active SHASTA Rosenberg [...] by mouth daily as needed TRAMADOL HCL 17207884061 No Longer Active Mukund Rivera MD Active AMLODIPINE BESYLATE 10 MG TABS 1 tablet by mouth daily AMLODIPINE BESYLATE 69841222056 No Longer Active Mukund Rivera MD Active SIMVASTATIN 20 MG ORAL TABS 1 tab by mouth daily SIMVASTATIN 93324960482 No Longer Active Mukund Rivera MD Active PLAVIX 75 MG ORAL TABS 1 tab by mouth daily CLOPIDOGREL BISULFATE 95718469683 No Longer Active Mukund Rivera MD Active HYDROXYCHLOROQUINE SULFATE 200 MG TABS by mouth twice a day 12/15 HYDROXYCHLOROQUINE SULFATE 54865521012 No Longer Active Mukund Rivera MD Active CIPRO 500 MG TAB 1 tablet two times daily CIPROFLOXACIN HCL 44786514023 No Longer Active Mukund Rivera MD Active OMEPRAZOLE 20 MG CPDR 1 tablet by mouth daily, as needed OMEPRAZOLE 03896925259 No Longer Active Mukund Rivera MD Active OREILLY [facility] CAPS Take one by mouth daily PROBIOTIC PRODUCT 70416608277 Active Ramos Myers MD Active KLOR-CON 10 10 MEQ CR-TABS Take one by mouth daily POTASSIUM CHLORIDE 81915811726 Active Ramos Myers MD Active FUROSEMIDE 20 MG TAB 1 tablet by mouth daily FUROSEMIDE 17295666012 Active Ramos Myers MD Active METHOTREXATE 2.5 MG TABS 6 tabs once a week METHOTREXATE SODIUM 28081242233 Active Ramos Myers MD Active DICLOFENAC SODIUM 75 MG TBEC Take one by mouth daily as needed DICLOFENAC SODIUM 28772184417 No Longer Active Ramos Myers MD Active SIMVASTATIN 20 MG TABS 1 tab daily at bedtime SIMVASTATIN 86817094767 No Longer Active Ramos Myers MD Active EQL [id number] 500-400-166 MG TABS Take one by mouth daily [id number] 23851719979 Active Ramos Myers MD Active CALCIUM 1500 MG TAB Take one by mouth daily CALCIUM CARBONATE 65023821437 Active Ramos Myers MD Active B-12 1000 MCG CR-TABS Take one by mouth daily CYANOCOBALAMIN 29764908733 Active Ramos Myers MD Active VITAMIN B-6 100 MG TABS Take one by mouth daily PYRIDOXINE HCL 62576417412 Active Ramos Myers MD Active ASPIRIN 81 MG TAB 1 tablet by mouth daily ASPIRIN 55675930779 Active Ramos Myers MD Active FOLIC ACID 1 MG TABS Take one by mouth daily FOLIC ACID 33779966742 Active Ramos Myers MD Active HYDROCHLOROTHIAZIDE 25 MG TABS 1 tablet by mouth daily HYDROCHLOROTHIAZIDE 65002508434 Active Ramos Myers MD Active METOPROLOL SUCCINATE ER 25 MG [id number] Take one by mouth twice daily METOPROLOL SUCCINATE 29380439084 Active Ramos Myers MD Active SIMVASTATIN 20 MG TABS 1 tab daily at bedtime SIMVASTATIN 20 MG TABS 226509 SIMVASTATIN Inactive DICLOFENAC SODIUM 75 MG TBEC Take one by mouth daily as needed DICLOFENAC SODIUM 75 MG TBEC 908794 DICLOFENAC SODIUM Inactive OMEPRAZOLE 20 MG CPDR 1 tablet by mouth daily, as needed OMEPRAZOLE 20 MG CPDR 792157 OMEPRAZOLE Inactive HYDROXYCHLOROQUINE SULFATE 200 MG TABS by mouth twice a day 12/15 HYDROXYCHLOROQUINE SULFATE 200 MG TABS 882957 HYDROXYCHLOROQUINE SULFATE Inactive PLAVIX 75 MG ORAL TABS 1 tab by mouth daily PLAVIX 75 MG ORAL TABS 675938 CLOPIDOGREL BISULFATE Inactive SIMVASTATIN 20 MG ORAL TABS 1 tab by mouth daily SIMVASTATIN 20 MG ORAL TABS 970040 SIMVASTATIN Inactive AMLODIPINE BESYLATE 10 MG TABS 1 tablet by mouth daily AMLODIPINE BESYLATE 10 MG TABS 900376 AMLODIPINE BESYLATE Inactive TRAMADOL HCL 50 MG TABS Take one by mouth daily as needed TRAMADOL HCL 50 MG TABS 952094 TRAMADOL HCL Inactive CIPRO 500 MG TAB 1 tablet two times daily CIPRO 500 MG TAB 873655 CIPROFLOXACIN HCL Inactive Advance Directives Directive Description [...] Measured Encounters Code Encounter Date Provider Facility CPT-68069 Level 3 Est. Patient 23:28:14 CDT Mukund Rivera MD [facility] CPT-01265 Level 3 Est. Patient 14:56:41 ASSOCIATE [employer] Mukund Rivera MD [facility] CPT-65934 Level 3 Est. Patient 16:05:06 [employer]OCIATE [employer] Mukund Rivera MD [facility] CPT-63927 Level 3 Est. Patient 14:06:16 [employer]OCIATE [employer] Muuknd Rivera MD [facility] CPT-33824 Level 3 New Patient 14:46:52 ASSOCIATE [employer] Mukund Rivera MD [facility] CPT-18408 Level 2 Est. Patient 14:01:01 CDT Ramos Myers MD [facility] CPT-30576 Level 2 Est. Patient 16:14:11 CDT Ramos Myers MD [facility] CPT-08864 Level 2 Est. Patient 14:39:48 CDT Ramos Myers MD [facility] CPT-41214 Level 3 Est. Patient 10:13:26 ASSOCIATE [employer] Ramos Myers MD [facility] Procedures Code Procedure Name Date Entry Date Standard Description CPT-A4357 Overnight urinary bag 10:24:50 CDT CPT-A4340 Indwell urin cath coude 10:24:50 CDT CPT-97824 Insert temp indwelling bld cath comp 10:24:50 CDT 01/14 CPT-A4340 Indwell urin cath coude 15:42:37 CDT CPT-18786 Postop F/U Visit 20:56:46 CDT CPT-51494 Aspiration hydrocele 15:23:51 ASSOCIATE [employer] CPT-LR Lesion Removal 14:01:01 CDT CPT-LR Lesion Removal 16:14:11 CDT CPT-13254 Postop F/U Visit 15:07:25 [employer]OCIATE [employer]
--- OUTSIDE RECORDS SUMMARY | 2017-10-22 23:53 | XMS REPORT | Clinical Summary ---
Author Author Admin, E Organization [facility] Address Unknown Phone Unavailable Allergies, Adverse Reactions, Alerts Allergy Name Reaction Description Start Date Severity Status Provider NEOSPORIN Critical Active SHASTA Rosenberg TETRACYCLINE Critical Active SHASTA Rosenberg BACTRIM Critical Active SHASAT Rosenberg HYZAAR Critical Active SHASTA Rosenberg Conditions or Problems Problem Name Problem Code Onset Date Status Entry Date Provider Comment Standard Description Annotate CORONARY HEART DISEASE 414.00 Active SHASTA Rosenberg Coronary atherosclerosis of unspecified type of vessel, [place] or graft HYPERTENSION 401.9 Active SHASTA Rosenberg [...] by mouth daily as needed TRAMADOL HCL 22256373548 No Longer Active Mukund Rivera MD Active AMLODIPINE BESYLATE 10 MG TABS 1 tablet by mouth daily AMLODIPINE BESYLATE 08158608519 No Longer Active Mukund Rivera MD Active SIMVASTATIN 20 MG ORAL TABS 1 tab by mouth daily SIMVASTATIN 36534677416 No Longer Active Mukund Rivera MD Active PLAVIX 75 MG ORAL TABS 1 tab by mouth daily CLOPIDOGREL BISULFATE 83451055581 No Longer Active Mukund Rivera MD Active HYDROXYCHLOROQUINE SULFATE 200 MG TABS by mouth twice a day 12/15 HYDROXYCHLOROQUINE SULFATE 21957428216 No Longer Active Mukund Rivera MD Active CIPRO 500 MG TAB 1 tablet two times daily CIPROFLOXACIN HCL 97910319282 No Longer Active Mukund Rivera MD Active OMEPRAZOLE 20 MG CPDR 1 tablet by mouth daily, as needed OMEPRAZOLE 10055204769 No Longer Active Mukund Rivera MD Active OREILLY [facility] CAP[employer] Take one by mouth daily PROBIOTIC PRODUCT 84228539900 Active Ramos Myers MD Active KLOR-CON 10 10 MEQ CR-TABS Take one by mouth daily POTASSIUM CHLORIDE 05694796593 Active Ramos Myers MD Active FUROSEMIDE 20 MG TAB 1 tablet by mouth daily FUROSEMIDE 14813642244 Active Ramos Myers MD Active METHOTREXATE 2.5 MG TABS 6 tabs once a week METHOTREXATE SODIUM 70367051440 Active Ramos Myers MD Active DICLOFENAC SODIUM 75 MG TBEC Take one by mouth daily as needed DICLOFENAC SODIUM 64062787974 No Longer Active Ramos Myers MD Active SIMVASTATIN 20 MG TABS 1 tab daily at bedtime SIMVASTATIN 99027030887 No Longer Active Ramos Myers MD Active EQL PGQHPOLCRBY-CNBNQRNIN-OQH 500-400-166 MG TABS Take one by mouth daily FMMCCRTBART-GUIKQPRGZPM-PJE 40865140776 Active Ramos Myers MD Active CALCIUM 1500 MG TAB Take one by mouth daily CALCIUM CARBONATE 38370284304 Active Ramos Myers MD Active B-12 1000 MCG CR-TABS Take one by mouth daily CYANOCOBALAMIN 17623493206 Active Ramos Myers MD Active VITAMIN B-6 100 MG TABS Take one by mouth daily PYRIDOXINE HCL 34832601825 Active Ramos Myers MD Active ASPIRIN 81 MG TAB 1 tablet by mouth daily ASPIRIN 31328992740 Active Ramos Myers MD Active FOLIC ACID 1 MG TABS Take one by mouth daily FOLIC ACID 85005885337 Active Ramos Myers MD Active HYDROCHLOROTHIAZIDE 25 MG TABS 1 tablet by mouth daily HYDROCHLOROTHIAZIDE 23772632851 Active Ramos Myers MD Active METOPROLOL SUCCINATE ER 25 MG [id number] Take one by mouth twice daily METOPROLOL SUCCINATE 04305407644 Active Ramos Myers MD Active SIMVASTATIN 20 MG TABS 1 tab daily at bedtime SIMVASTATIN 20 MG TABS 588853 SIMVASTATIN Inactive DICLOFENAC SODIUM 75 MG TBEC Take one by mouth daily as needed DICLOFENAC SODIUM 75 MG TBEC 481274 DICLOFENAC SODIUM Inactive OMEPRAZOLE 20 MG CPDR 1 tablet by mouth daily, as needed OMEPRAZOLE 20 MG CPDR 832330 OMEPRAZOLE Inactive HYDROXYCHLOROQUINE SULFATE 200 MG TABS by mouth twice a day 12/15 HYDROXYCHLOROQUINE SULFATE 200 MG TABS 991232 HYDROXYCHLOROQUINE SULFATE Inactive PLAVIX 75 MG ORAL TABS 1 tab by mouth daily PLAVIX 75 MG ORAL TABS 106192 CLOPIDOGREL BISULFATE Inactive SIMVASTATIN 20 MG ORAL TABS 1 tab by mouth daily SIMVASTATIN 20 MG ORAL TABS 305897 SIMVASTATIN Inactive AMLODIPINE BESYLATE 10 MG TABS 1 tablet by mouth daily AMLODIPINE BESYLATE 10 MG TABS 860664 AMLODIPINE BESYLATE Inactive TRAMADOL HCL 50 MG TABS Take one by mouth daily as needed TRAMADOL HCL 50 MG TABS 006686 TRAMADOL HCL Inactive CIPRO 500 MG TAB 1 tablet two times daily CIPRO 500 MG TAB 150530 CIPROFLOXACIN HCL Inactive Advance Directives Directive Description Start Date PERMISSION TO SHARE LIVING WILL ON FILE Vital Signs Date Name Value Unit Range Description blood pressure, diastolic 74 mm[Hg] BP desai [...] negative Encounters Code Encounter Date Provider Facility CPT-15959 Level 3 Est. Patient 19:01:41 KARLIE Rivera MD [facility] CPT-43720 Level 3 Est. Patient 23:28:14 CDT Mukund Rivera MD [facility] CPT-83017 Level 3 Est. Patient 14:56:41 1[employer] Mukund Rivera MD [facility] CPT-58752 Level 3 Est. Patient 16:05:06 1[employer] Mukund Rivera MD [facility] CPT-23701 Level 3 Est. Patient 14:06:16 1[employer] Mukund Rivera MD [facility] CPT-22779 Level 3 New Patient 14:46:52 1ST [employer] Mukund Rivera MD [facility] CPT-24200 Level 2 Est. Patient 14:01:01 CDT Ramos Myers MD [facility] CPT-72230 Level 2 Est. Patient 16:14:11 CDT Ramos Myers MD [facility] CPT-99510 Level 2 Est. Patient 14:39:48 CDT Ramos Myers MD [facility] CPT-29155 Level 3 Est. Patient 10:13:26 1ST [employer] Ramos Myers MD [facility] Procedures Code Procedure Name Date Entry Date Standard Description CPT-31990 Cystoscopy 19:01:42 CDT CPT-83774 Abd single AP View - XRAY USE ONLY 11:35:07 CDT CPT-82905 Postop F/U Visit 10:30:43 CDT CPT-A4357 Overnight urinary bag 10:24:50 CDT CPT-A4340 Indwell urin cath coude 10:24:50 CDT CPT-00631 Insert temp indwelling bld cath comp 10:24:50 CDT 01/14 CPT-A4340 Indwell urin cath coude 15:42:37 CDT CPT-28504 Postop F/U Visit 20:56:46 CDT CPT-58137 Aspiration hydrocele 15:23:51 1ST [employer] CPT-LR Lesion Removal 14:01:01 CDT CPT-LR Lesion Removal 16:14:11 CDT CPT-84684 Postop F/U Visit 15:07:25 1ST [employer]
--- OUTSIDE RECORDS SUMMARY | 2017-10-22 23:53 | XMS REPORT | Clinical Summary ---
Author Author Admin, NUZHAT Organization [facility] Address Unknown Phone Unavailable Allergies, Adverse Reactions, [...] Coronary atherosclerosis of unspecified type of vessel, [place] or graft HYPERTENSION 401.9 Active SHASTA Rosenberg [...] by mouth daily as needed TRAMADOL HCL 39755038391 No Longer Active Mukund Rivera MD Active AMLODIPINE BESYLATE 10 MG TABS 1 tablet by mouth daily AMLODIPINE BESYLATE 37454579824 No Longer Active Mukund Rivera MD Active SIMVASTATIN 20 MG ORAL TABS 1 tab by mouth daily SIMVASTATIN 34005066453 No Longer Active Mukund Rivera MD Active PLAVIX 75 MG ORAL TABS 1 tab by mouth daily CLOPIDOGREL BISULFATE 24934056119 No Longer Active Mukund Rivera MD Active HYDROXYCHLOROQUINE SULFATE 200 MG TABS by mouth twice a day 12/15 HYDROXYCHLOROQUINE SULFATE 46936583043 No Longer Active Mukund Rivera MD Active CIPRO 500 MG TAB 1 tablet two times daily CIPROFLOXACIN HCL 54582306461 No Longer Active Mukund Rivera MD Active OMEPRAZOLE 20 MG CPDR 1 tablet by mouth daily, as needed OMEPRAZOLE 00628635705 No Longer Active J Cholo Rivera MD Active ORE[employer]Y [facility] [employer] Take one by mouth daily PROBIOTIC PRODUCT 89669620931 Active Ramos Myers MD Active KLOR-CON 10 10 MEQ CR-TABS Take one by mouth daily POTASSIUM CHLORIDE 29068872842 Active Ramos Myers MD Active FUROSEMIDE 20 MG TAB 1 tablet by mouth daily FUROSEMIDE 56851201757 Active Ramos Myers MD Active METHOTREXATE 2.5 MG TABS 6 tabs once a week METHOTREXATE SODIUM 73938270606 Active Ramos Myers MD Active DICLOFENAC SODIUM 75 MG TBEC Take one by mouth daily as needed DICLOFENAC SODIUM 04537431091 No Longer Active Ramos Myers MD Active SIMVASTATIN 20 MG TABS 1 tab daily at bedtime SIMVASTATIN 33375140829 No Longer Active Ramos Myers MD Active EQL [id number]-AYHMBHMRP-PIQ 500-400-166 MG TABS Take one by mouth daily [id number]-[id number]-GYE 20794296600 Active Ramos Myers MD Active CALCIUM 1500 MG TAB Take one by mouth daily CALCIUM CARBONATE 17092111548 Active Ramos Myers MD Active B-12 1000 MCG CR-TABS Take one by mouth daily CYANOCOBALAMIN 16184041928 Active Ramos Myers MD Active VITAMIN B-6 100 MG TABS Take one by mouth daily PYRIDOXINE HCL 70908413470 Active Ramos Myers MD Active ASPIRIN 81 MG TAB 1 tablet by mouth daily ASPIRIN 40825997629 Active Ramos Myers MD Active FOLIC ACID 1 MG TABS Take one by mouth daily FOLIC ACID 55591266541 Active Ramos Myers MD Active HYDROCHLOROTHIAZIDE 25 MG TABS 1 tablet by mouth daily HYDROCHLOROTHIAZIDE 34325985452 Active Ramos Myers MD Active METOPROLOL SUCCINATE ER 25 MG [id number] Take one by mouth twice daily METOPROLOL SUCCINATE 15841276598 Active Ramos Myers MD Active SIMVASTATIN 20 MG TABS 1 tab daily at bedtime SIMVASTATIN 20 MG TABS 135555 SIMVASTATIN Inactive DICLOFENAC SODIUM 75 MG TBEC Take one by mouth daily as needed DICLOFENAC SODIUM 75 MG TBEC 421226 DICLOFENAC SODIUM Inactive OMEPRAZOLE 20 MG CPDR 1 tablet by mouth daily, as needed OMEPRAZOLE 20 MG CPDR 589201 OMEPRAZOLE Inactive HYDROXYCHLOROQUINE SULFATE 200 MG TABS by mouth twice a day 12/15 HYDROXYCHLOROQUINE SULFATE 200 MG TABS 640169 HYDROXYCHLOROQUINE SULFATE Inactive PLAVIX 75 MG ORAL TABS 1 tab by mouth daily PLAVIX 75 MG ORAL TABS 386652 CLOPIDOGREL BISULFATE Inactive SIMVASTATIN 20 MG ORAL TABS 1 tab by mouth daily SIMVASTATIN 20 MG ORAL TABS 755190 SIMVASTATIN Inactive AMLODIPINE BESYLATE 10 MG TABS 1 tablet by mouth daily AMLODIPINE BESYLATE 10 MG TABS 199792 AMLODIPINE BESYLATE Inactive TRAMADOL HCL 50 MG TABS Take one by mouth daily as needed TRAMADOL HCL 50 MG TABS 541223 TRAMADOL HCL Inactive CIPRO 500 MG TAB 1 tablet two times daily CIPRO 500 MG TAB 561478 CIPROFLOXACIN HCL Inactive Advance Directives Directive Description Start Date PERMISSION TO SHARE LIVING WILL ON FILE Vital Signs Date Name Value Unit Range Description blood pressure, diastolic 65 mm[Hg] BP desai [...] negative Encounters Code Encounter Date Provider Facility CPT-26151 Level 3 Est. Patient 19:01:41 CDT Mukund Rivera MD [facility] CPT-47313 Level 3 Est. Patient 23:28:14 CDT Mukund Rivera MD [facility] CPT-33647 Level 3 Est. Patient 14:56:41 ADVOCACY DIRECTOR Mukund Rivera MD [facility] CPT-20921 Level 3 Est. Patient 16:05:06 ADVOCACY DIRECTOR Mukund Rivera MD [facility] CPT-41251 Level 3 Est. Patient 14:06:16 ADVOCACY DIRECTOR Mukund Rivera MD [facility] CPT-33953 Level 3 New Patient 14:46:52 ADVOCACY DIRECTOR Mukund Rivera MD [facility] CPT-79748 Level 2 Est. Patient 14:01:01 CDT Ramos Myers MD [facility] CPT-81869 Level 2 Est. Patient 16:14:11 CDT Ramos Myers MD [facility] CPT-50038 Level 2 Est. Patient 14:39:48 CDT Ramos Myers MD [facility] CPT-31757 Level 3 Est. Patient 10:13:26 ADVOCACY DIRECTOR Ramos Myers MD [facility] Procedures Code Procedure Name Date Entry Date Standard Description CPT-96806 Postop F/U Visit 10:44:37 CDT CPT-32445 Abd single AP View - XRAY USE ONLY 09:47:35 CDT CPT-91995 Cystoscopy 19:01:42 CDT CPT-04432 Abd single AP View - XRAY USE ONLY 11:35:07 CDT CPT-71616 Postop F/U Visit 10:30:43 CDT CPT-A4357 Overnight urinary bag 10:24:50 CDT CPT-A4340 Indwell urin cath coude 10:24:50 CDT CPT-32122 Insert temp indwelling bld cath comp 10:24:50 CDT 01/14 CPT-A4340 Indwell urin cath coude 15:42:37 CDT CPT-17697 Postop F/U Visit 20:56:46 CDT CPT-34253 Aspiration hydrocele 15:23:51 ADVOCACY DIRECTOR CPT-LR Lesion Removal 14:01:01 CDT CPT-LR Lesion Removal 16:14:11 CDT CPT-57529 Postop F/U Visit 15:07:25 ADVOCACY DIRECTOR
--- OUTSIDE RECORDS SUMMARY | 2017-10-22 23:54 | XMS REPORT | Clinical Summary ---
Author Author Admin, NUZHAT Organization [facility] Address Unknown Phone Unavailable Allergies, Adverse [...] Coronary atherosclerosis of unspecified type of vessel, [place] or graft HYPERTENSION 401.9 Active SHASTA Rosenberg [...] by mouth daily as needed TRAMADOL HCL 75809890447 No Longer Active Mukund Rivera MD Active AMLODIPINE BESYLATE 10 MG TABS 1 tablet by mouth daily AMLODIPINE BESYLATE 78424283475 No Longer Active Mukund Rivera MD Active SIMVASTATIN 20 MG ORAL TABS 1 tab by mouth daily SIMVASTATIN 73445969795 No Longer Active Mukund Rivera MD Active PLAVIX 75 MG ORAL TABS 1 tab by mouth daily CLOPIDOGREL BISULFATE 73460062059 No Longer Active Mukund Rivera MD Active HYDROXYCHLOROQUINE SULFATE 200 MG TABS by mouth twice a day 12/15 HYDROXYCHLOROQUINE SULFATE 81780584216 No Longer Active Mukund Rivera MD Active CIPRO 500 MG TAB 1 tablet two times daily CIPROFLOXACIN HCL 36172086420 No Longer Active Mukund Rivera MD Active OMEPRAZOLE 20 MG CPDR 1 tablet by mouth daily, as needed OMEPRAZOLE 31110095243 No Longer Active Mukund Rivera MD Active [facility] [facility] [employer] Take one by mouth daily PROBIOTIC PRODUCT 28218251452 Active Ramos Myers MD Active KLOR-CON 10 10 MEQ CR-TABS Take one by mouth daily POTASSIUM CHLORIDE 21538167400 Active Ramos Myers MD Active FUROSEMIDE 20 MG TAB 1 tablet by mouth daily FUROSEMIDE 12011501039 Active Ramos Myers MD Active METHOTREXATE 2.5 MG TABS 6 tabs once a week METHOTREXATE SODIUM 44823944973 Active Ramos Myers MD Active DICLOFENAC SODIUM 75 MG TBEC Take one by mouth daily as needed DICLOFENAC SODIUM 16955893553 No Longer Active Ramos Myers MD Active SIMVASTATIN 20 MG TABS 1 tab daily at bedtime SIMVASTATIN 12457280155 No Longer Active Ramos Myers MD Active EQL CINGLHYGXAT-ENVFAOJUP-HXG 500-400-166 MG TABS Take one by mouth daily GGNZUGZMMQJ-[id number]-AAJ 43167879752 Active Ramos Myers MD Active CALCIUM 1500 MG TAB Take one by mouth daily CALCIUM CARBONATE 08613739565 Active Ramos Myers MD Active B-12 1000 MCG CR-TABS Take one by mouth daily CYANOCOBALAMIN 83793240724 Active Ramos Myers MD Active VITAMIN B-6 100 MG TABS Take one by mouth daily PYRIDOXINE HCL 14032741448 Active Ramos Myers MD Active ASPIRIN 81 MG TAB 1 tablet by mouth daily ASPIRIN 21553864809 Active Ramos Myers MD Active FOLIC ACID 1 MG TABS Take one by mouth daily FOLIC ACID 20470567123 Active Ramos Myers MD Active HYDROCHLOROTHIAZIDE 25 MG TABS 1 tablet by mouth daily HYDROCHLOROTHIAZIDE 05717071425 Active Ramos Myers MD Active METOPROLOL SUCCINATE ER 25 MG [id number] Take one by mouth twice daily METOPROLOL SUCCINATE 18181959240 Active Ramos Myers MD Active SIMVASTATIN 20 MG TABS 1 tab daily at bedtime SIMVASTATIN 20 MG TABS 119005 SIMVASTATIN Inactive DICLOFENAC SODIUM 75 MG TBEC Take one by mouth daily as needed DICLOFENAC SODIUM 75 MG TBEC 842832 DICLOFENAC SODIUM Inactive OMEPRAZOLE 20 MG CPDR 1 tablet by mouth daily, as needed OMEPRAZOLE 20 MG CPDR 532235 OMEPRAZOLE Inactive HYDROXYCHLOROQUINE SULFATE 200 MG TABS by mouth twice a day 12/15 HYDROXYCHLOROQUINE SULFATE 200 MG TABS 797833 HYDROXYCHLOROQUINE SULFATE Inactive PLAVIX 75 MG ORAL TABS 1 tab by mouth daily PLAVIX 75 MG ORAL TABS 625895 CLOPIDOGREL BISULFATE Inactive SIMVASTATIN 20 MG ORAL TABS 1 tab by mouth daily SIMVASTATIN 20 MG ORAL TABS 129567 SIMVASTATIN Inactive AMLODIPINE BESYLATE 10 MG TABS 1 tablet by mouth daily AMLODIPINE BESYLATE 10 MG TABS 652032 AMLODIPINE BESYLATE Inactive TRAMADOL HCL 50 MG TABS Take one by mouth daily as needed TRAMADOL HCL 50 MG TABS 093184 TRAMADOL HCL Inactive CIPRO 500 MG TAB 1 tablet two times daily CIPRO 500 MG TAB 653540 CIPROFLOXACIN HCL Inactive Advance Directives Directive Description [...] Measured Encounters Code Encounter Date Provider Facility CPT-99750 Level 3 Est. Patient 23:28:14 CDT Mukund Rivera MD [facility] CPT-37326 Level 3 Est. Patient 14:56:41 ENVIRONMENTAL SERVICES TECHNICIAN Mukund Rivera MD [facility] CPT-89083 Level 3 Est. Patient 16:05:06 ENVIRONMENTAL SERVICES TECHNICIAN Mukund Rivera MD [facility] CPT-24025 Level 3 Est. Patient 14:06:16 ENVIRONMENTAL SERVICES TECHNICIAN Mukund Rivera MD [facility] CPT-26828 Level 3 New Patient 14:46:52 ENVIRONMENTAL SERVICES TECHNICIAN Mukund Rivera MD [facility] CPT-14530 Level 2 Est. Patient 14:01:01 CDT Ramos Myers MD [facility] CPT-19595 Level 2 Est. Patient 16:14:11 CDT Ramos Myers MD [facility] CPT-22153 Level 2 Est. Patient 14:39:48 CDT Ramos Myers MD [facility] CPT-77503 Level 3 Est. Patient 10:13:26 ENVIRONMENTAL SERVICES TECHNICIAN Ramos Myers MD [facility] Procedures Code Procedure Name Date Entry Date Standard Description CPT-A4357 Overnight urinary bag 10:24:50 CDT CPT-A4340 Indwell urin cath coude 10:24:50 CDT CPT-83072 Insert temp indwelling bld cath comp 10:24:50 CDT 01/14 CPT-A4340 Indwell urin cath coude 15:42:37 CDT CPT-32389 Postop F/U Visit 20:56:46 CDT CPT-97916 Aspiration hydrocele 15:23:51 ENVIRONMENTAL SERVICES TECHNICIAN CPT-LR Lesion Removal 14:01:01 CDT CPT-LR Lesion Removal 16:14:11 CDT CPT-86735 Postop F/U Visit 15:07:25 ENVIRONMENTAL SERVICES TECHNICIAN
--- OUTSIDE RECORDS SUMMARY | 2017-10-22 23:54 | XMS REPORT | Clinical Summary ---
Author Author Admin, NUZHAT Organization [facility] Address Unknown Phone Unavailable Allergies, Adverse [...] Coronary atherosclerosis of unspecified type of vessel, [place] or graft HYPERTENSION 401.9 Active SHASTA Rosenberg [...] Hematuria, unspecified Acute UTI 599.0 Active Mukund Rievra MD Urinary tract infection, site not specified Bladder Calculus Active Mukund Rivera MD Renal calculus, left 592.0 Active Mukund Rivera MD Calculus of kidney Medication List Medication Instructions Start Date Stop Date Generic Name NDC Status Provider Patient Instruction TRAMADOL HCL 50 MG ORAL TABLET Take one by mouth daily as needed TRAMADOL HCL 97113795819 No Longer Active Mukund Rivera MD Active AMLODIPINE BESYLATE 10 MG ORAL TABLET 1 tablet by mouth daily AMLODIPINE BESYLATE 59713540507 No Longer Active Mukund Rivera MD Active SIMVASTATIN 20 MG ORAL TABLET 1 tab by mouth daily SIMVASTATIN 17361944716 No Longer Active Mukund Rivera MD Active PLAVIX 75 MG ORAL TABLET 1 tab by mouth daily CLOPIDOGREL BISULFATE 51401749407 No Longer Active Mukund Rivera MD Active HYDROXYCHLOROQUINE SULFATE 200 MG ORAL TABLET by mouth twice a day HYDROXYCHLOROQUINE SULFATE 48149989778 No Longer Active Mukund Rivera MD Active CIPRO 500 MG ORAL TABLET 1 tablet two times daily CIPROFLOXACIN HCL 34207965436 No Longer Active Mukund Rivera MD Active OMEPRAZOLE 20 MG ORAL CAPSULE DELAYED RELEASE 1 tablet by mouth daily, as needed OMEPRAZOLE 09328332974 No Longer Active Mukund Rivera MD Active OREILLY [facility] ORAL CAPSULE Take one by mouth daily PROBIOTIC PRODUCT 02149495090 Active Ramos Myers MD Active KLOR-CON 10 10 MEQ ORAL TABLET EXTENDED RELEASE Take one by mouth daily 05/31 POTASSIUM CHLORIDE 41109255082 Active Ramos Myers MD Active FUROSEMIDE 20 MG ORAL TABLET 1 tablet by mouth daily FUROSEMIDE 45470775086 Active Ramos Myers MD Active METHOTREXATE 2.5 MG ORAL TABLET 6 tabs once a week METHOTREXATE SODIUM 30497730418 Active Ramos Myers MD Active DICLOFENAC SODIUM 75 MG ORAL TABLET DELAYED RELEASE Take one by mouth daily as needed DICLOFENAC SODIUM 61711179976 No Longer Active Ramos Myers MD Active SIMVASTATIN 20 MG ORAL TABLET 1 tab daily at bedtime SIMVASTATIN 32769843062 No Longer Active Ramos Myers MD Active EQL CVOAANVFJUR-DOYXBVMVC-XJW 500-400-166 MG ORAL TABLET Take one by mouth daily ATBDXFCBMGZ-DAZDOELRYOG-PEG 51644694986 Active Ramos Myers MD Active CALCIUM CARBONATE 1500 (600 Ca) MG ORAL TABLET Take one by mouth daily 11/29 CALCIUM CARBONATE 18458449029 Active Ramos Myers MD Active B-12 1000 MCG ORAL TABLET EXTENDED RELEASE Take one by mouth daily CYANOCOBALAMIN 57083444308 Active Ramos Myers MD Active VITAMIN B-6 100 MG ORAL TABLET Take one by mouth daily PYRIDOXINE HCL 96034144980 Active Ramos Myers MD Active ASPIRIN 81 MG ORAL TABLET 1 tablet by mouth daily ASPIRIN 59222949297 Active Ramos Myers MD Active FOLIC ACID 1 MG ORAL TABLET Take one by mouth daily FOLIC ACID 46122006002 Active Ramos Myers MD Active HYDROCHLOROTHIAZIDE 25 MG ORAL TABLET 1 tablet by mouth daily HYDROCHLOROTHIAZIDE 81475253635 Active Ramos Myers MD Active METOPROLOL SUCCINATE ER 25 MG ORAL TABLET EXTENDED RELEASE 24 HOUR Take one by mouth twice daily METOPROLOL SUCCINATE 64348450292 Active Ramos Myers MD Active SIMVASTATIN 20 MG ORAL TABLET 1 tab daily at bedtime SIMVASTATIN 20 MG ORAL TABLET 806855 SIMVASTATIN Inactive DICLOFENAC SODIUM 75 MG ORAL TABLET DELAYED RELEASE Take one by mouth daily as needed DICLOFENAC SODIUM 75 MG ORAL TABLET DELAYED RELEASE 612077 DICLOFENAC SODIUM Inactive OMEPRAZOLE 20 MG ORAL CAPSULE DELAYED RELEASE 1 tablet by mouth daily, as needed OMEPRAZOLE 20 MG ORAL CAPSULE DELAYED RELEASE 337100 OMEPRAZOLE Inactive HYDROXYCHLOROQUINE SULFATE 200 MG ORAL TABLET by mouth twice a day HYDROXYCHLOROQUINE SULFATE 200 MG ORAL TABLET 027996 HYDROXYCHLOROQUINE SULFATE Inactive PLAVIX 75 MG ORAL TABLET 1 tab by mouth daily PLAVIX 75 MG ORAL TABLET 594102 CLOPIDOGREL BISULFATE Inactive SIMVASTATIN 20 MG ORAL TABLET 1 tab by mouth daily SIMVASTATIN 20 MG ORAL TABLET 013125 SIMVASTATIN Inactive AMLODIPINE BESYLATE 10 MG ORAL TABLET 1 tablet by mouth daily AMLODIPINE BESYLATE 10 MG ORAL TABLET 143404 AMLODIPINE BESYLATE Inactive TRAMADOL HCL 50 MG ORAL TABLET Take one by mouth daily as needed TRAMADOL HCL 50 MG ORAL TABLET 174956 TRAMADOL HCL Inactive CIPRO 500 MG ORAL TABLET 1 tablet two times daily CIPRO 500 MG ORAL TABLET 526307 CIPROFLOXACIN HCL Inactive Advance Directives Directive Description [...] negative Encounters Code Encounter Date Provider Facility CPT-76832 Level 3 Est. Patient 10:36:44 MCAT TUTOR Mukund Rivera MD [facility] CPT-91057 Level 3 Est. Patient 19:01:41 CDT Mukund Rivera MD [facility] CPT-64057 Level 3 Est. Patient 23:28:14 CDT Mukund Rivera MD [facility] CPT-77755 Level 3 Est. Patient 14:56:41 MCAT TUTOR Mukund Rivera MD [facility] CPT-08451 Level 3 Est. Patient 16:05:06 MCAT TUTOR Mukund Rivera MD [facility] CPT-56087 Level 3 Est. Patient 14:06:16 MCAT TUTOR Mukund Rivera MD [facility] CPT-38065 Level 3 New Patient 14:46:52 MCAT TUTOR Mukund Rivera MD [facility] CPT-20934 Level 2 Est. Patient 14:01:01 CDT Ramos Myers MD [facility] CPT-94203 Level 2 Est. Patient 16:14:11 CDT Ramos Myers MD [facility] CPT-66031 Level 2 Est. Patient 14:39:48 CDT Ramos Myers MD [facility] CPT-98474 Level 3 Est. Patient 10:13:26 MCAT TUTOR Ramos Myers MD [facility] Procedures Code Procedure Name Date Entry Date Standard Description CPT-49017 Abd single AP View - XRAY USE ONLY 09:40:50 MCAT TUTOR CPT-78135 Postop F/U Visit 10:44:37 CDT CPT-11543 Abd single AP View - XRAY USE ONLY 09:47:35 CDT CPT-46229 Cystoscopy 19:01:42 CDT CPT-51501 Abd single AP View - XRAY USE ONLY 11:35:07 CDT CPT-48925 Postop F/U Visit 10:30:43 CDT CPT-A4357 Overnight urinary bag 10:24:50 CDT CPT-A4340 Indwell urin cath coude 10:24:50 CDT CPT-29629 Insert temp indwelling bld cath comp 10:24:50 CDT 01/14 CPT-A4340 Indwell urin cath coude 15:42:37 CDT CPT-67706 Postop F/U Visit 20:56:46 CDT CPT-96551 Aspiration hydrocele 15:23:51 MCAT TUTOR CPT-LR Lesion Removal 14:01:01 CDT CPT-LR Lesion Removal 16:14:11 CDT CPT-82685 Postop F/U Visit 15:07:25 MCAT TUTOR
--- OUTSIDE RECORDS SUMMARY | 2017-10-22 23:54 | XMS REPORT | Clinical Summary ---
Author Author Admin, NUZHAT Organization [facility] Address Unknown Phone Unavailable Allergies, Adverse Reactions, [...] by mouth daily as needed TRAMADOL HCL 91546143551 No Longer Active Mukund Rivera MD Active AMLODIPINE BESYLATE 10 MG TABS 1 tablet by mouth daily AMLODIPINE BESYLATE 80318231352 No Longer Active Mukund Rivera MD Active SIMVASTATIN 20 MG ORAL TABS 1 tab by mouth daily SIMVASTATIN 22925875064 No Longer Active Mukund Rivera MD Active PLAVIX 75 MG ORAL TABS 1 tab by mouth daily CLOPIDOGREL BISULFATE 11055167729 No Longer Active Mukund Rivera MD Active HYDROXYCHLOROQUINE SULFATE 200 MG TABS by mouth twice a day 12/15 HYDROXYCHLOROQUINE SULFATE 94800972775 No Longer Active Mukund Rivera MD Active CIPRO 500 MG TAB 1 tablet two times daily CIPROFLOXACIN HCL 30386338872 No Longer Active Mukund Rivera MD Active OMEPRAZOLE 20 MG CPDR 1 tablet by mouth daily, as needed OMEPRAZOLE 39197653790 No Longer Active J Cholo Rivera MD Active [facility]RE[facility] CAPS Take one by mouth daily PROBIOTIC PRODUCT 33898147054 Active Ramos Myers MD Active KLOR-CON 10 10 MEQ CR-TABS Take one by mouth daily POTASSIUM CHLORIDE 61986104563 Active Ramos Myers MD Active FUROSEMIDE 20 MG TAB 1 tablet by mouth daily FUROSEMIDE 38824080524 Active Ramos Myers MD Active METHOTREXATE 2.5 MG TABS 6 tabs once a week METHOTREXATE SODIUM 17635157554 Active Ramos Myers MD Active DICLOFENAC SODIUM 75 MG TBEC Take one by mouth daily as needed DICLOFENAC SODIUM 64311709520 No Longer Active Ramos Myers MD Active SIMVASTATIN 20 MG TABS 1 tab daily at bedtime SIMVASTATIN 80590200037 No Longer Active Ramos Myers MD Active EQL [id number]-PALSVSYWH-[id number] 500-400-166 MG TABS Take one by mouth daily [id number]-[id number]-AWZ 60396613860 Active Ramos Myers MD Active CALCIUM 1500 MG TAB Take one by mouth daily CALCIUM CARBONATE 66888225303 Active Ramos Myers MD Active B-12 1000 MCG CR-TABS Take one by mouth daily CYANOCOBALAMIN 21808363251 Active Ramos Myers MD Active VITAMIN B-6 100 MG TABS Take one by mouth daily PYRIDOXINE HCL 39014755391 Active Ramos Myers MD Active ASPIRIN 81 MG TAB 1 tablet by mouth daily ASPIRIN 25869262146 Active Ramos Myers MD Active FOLIC ACID 1 MG TABS Take one by mouth daily FOLIC ACID 97831715301 Active Ramos Myers MD Active HYDROCHLOROTHIAZIDE 25 MG TABS 1 tablet by mouth daily HYDROCHLOROTHIAZIDE 65449134644 Active Ramos Myers MD Active METOPROLOL SUCCINATE ER 25 MG [id number] Take one by mouth twice daily METOPROLOL SUCCINATE 91127762800 Active Ramos Myers MD Active SIMVASTATIN 20 MG TABS 1 tab daily at bedtime SIMVASTATIN 20 MG TABS 961170 SIMVASTATIN Inactive DICLOFENAC SODIUM 75 MG TBEC Take one by mouth daily as needed DICLOFENAC SODIUM 75 MG TBEC 105627 DICLOFENAC SODIUM Inactive OMEPRAZOLE 20 MG CPDR 1 tablet by mouth daily, as needed OMEPRAZOLE 20 MG CPDR 146277 OMEPRAZOLE Inactive HYDROXYCHLOROQUINE SULFATE 200 MG TABS by mouth twice a day 12/15 HYDROXYCHLOROQUINE SULFATE 200 MG TABS 134453 HYDROXYCHLOROQUINE SULFATE Inactive PLAVIX 75 MG ORAL TABS 1 tab by mouth daily PLAVIX 75 MG ORAL TABS 212356 CLOPIDOGREL BISULFATE Inactive SIMVASTATIN 20 MG ORAL TABS 1 tab by mouth daily SIMVASTATIN 20 MG ORAL TABS 456278 SIMVASTATIN Inactive AMLODIPINE BESYLATE 10 MG TABS 1 tablet by mouth daily AMLODIPINE BESYLATE 10 MG TABS 581891 AMLODIPINE BESYLATE Inactive TRAMADOL HCL 50 MG TABS Take one by mouth daily as needed TRAMADOL HCL 50 MG TABS 583761 TRAMADOL HCL Inactive CIPRO 500 MG TAB 1 tablet two times daily CIPRO 500 MG TAB 486679 CIPROFLOXACIN HCL Inactive Advance Directives Directive Description [...] negative Encounters Code Encounter Date Provider Facility CPT-74132 Level 3 Est. Patient 19:01:41 CDT Mukund Rivera MD [facility] CPT-96194 Level 3 Est. Patient 23:28:14 CDT Mukund Rivera MD [facility] CPT-88160 Level 3 Est. Patient 14:56:41 GIS MANAGER Mukund Rivera MD [facility] CPT-58859 Level 3 Est. Patient 16:05:06 GIS MANAGER Mukund Rivera MD [facility] CPT-60855 Level 3 Est. Patient 14:06:16 GIS MANAGER Mukund Rivera MD [facility] CPT-65553 Level 3 New Patient 14:46:52 GIS MANAGER Mukund Rivera MD [facility] CPT-35426 Level 2 Est. Patient 14:01:01 CDT Ramos Myers MD [facility] CPT-42562 Level 2 Est. Patient 16:14:11 CDT Ramos Myers MD [facility] CPT-56939 Level 2 Est. Patient 14:39:48 CDT Ramos Myers MD [facility] CPT-86414 Level 3 Est. Patient 10:13:26 GIS MANAGER Ramos Myers MD [facility] Procedures Code Procedure Name Date Entry Date Standard Description CPT-09605 Postop F/U Visit 10:44:37 CDT CPT-93352 Abd single AP View - XRAY USE ONLY 09:47:35 CDT CPT-45573 Cystoscopy 19:01:42 CDT CPT-05910 Abd single AP View - XRAY USE ONLY 11:35:07 CDT CPT-42010 Postop F/U Visit 10:30:43 CDT CPT-A4357 Overnight urinary bag 10:24:50 CDT CPT-A4340 Indwell urin cath coude 10:24:50 CDT CPT-93726 Insert temp indwelling bld cath comp 10:24:50 CDT 01/14 CPT-A4340 Indwell urin cath coude 15:42:37 CDT CPT-71030 Postop F/U Visit 20:56:46 CDT CPT-45581 Aspiration hydrocele 15:23:51 GIS MANAGER CPT-LR Lesion Removal 14:01:01 CDT CPT-LR Lesion Removal 16:14:11 CDT CPT-29284 Postop F/U Visit 15:07:25 GIS MANAGER
--- OUTSIDE RECORDS SUMMARY | 2017-10-22 23:55 | XMS REPORT | Clinical Summary ---
Author Author Admin, E Organization [facility] Address Unknown Phone Unavailable Allergies, Adverse Reactions, [...] Coronary atherosclerosis of unspecified type of vessel, [place] or graft HYPERTENSION 401.9 Active SHASTA Rosenberg [...] by mouth daily as needed TRAMADOL HCL 13976386302 No Longer Active Mukund Rivera MD Active AMLODIPINE BESYLATE 10 MG TABS 1 tablet by mouth daily AMLODIPINE BESYLATE 56905606874 No Longer Active Mukund Rivera MD Active SIMVASTATIN 20 MG ORAL TABS 1 tab by mouth daily SIMVASTATIN 95222543933 No Longer Active Mukund Rivera MD Active PLAVIX 75 MG ORAL TABS 1 tab by mouth daily CLOPIDOGREL BISULFATE 17891279839 No Longer Active Mukund Rivera MD Active HYDROXYCHLOROQUINE SULFATE 200 MG TABS by mouth twice a day 12/15 HYDROXYCHLOROQUINE SULFATE 95158984415 No Longer Active Mukund Rivera MD Active CIPRO 500 MG TAB 1 tablet two times daily CIPROFLOXACIN HCL 21778407675 No Longer Active Mukund Rivera MD Active OMEPRAZOLE 20 MG CPDR 1 tablet by mouth daily, as needed OMEPRAZOLE 26816990130 No Longer Active Mukund Rivera MD Active [facility] CAP[employer] Take one by mouth daily PROBIOTIC PRODUCT 96084876149 Active Ramos Myers MD Active KLOR-CON 10 10 MEQ CR-TABS Take one by mouth daily POTASSIUM CHLORIDE 38344978902 Active Ramos Myers MD Active FUROSEMIDE 20 MG TAB 1 tablet by mouth daily FUROSEMIDE 19042868041 Active Ramos Myers MD Active METHOTREXATE 2.5 MG TABS 6 tabs once a week METHOTREXATE SODIUM 47691261176 Active Ramos Myers MD Active DICLOFENAC SODIUM 75 MG TBEC Take one by mouth daily as needed DICLOFENAC SODIUM 71143606877 No Longer Active Ramos Myers MD Active SIMVASTATIN 20 MG TABS 1 tab daily at bedtime SIMVASTATIN 50615596828 No Longer Active Ramos Myers MD Active EQL [id number]-THXMRSVYP-PYX 500-400-166 MG TABS Take one by mouth daily KFLLVRBIXQK-[id number]-QGM 32062309278 Active Ramos Myers MD Active CALCIUM 1500 MG TAB Take one by mouth daily CALCIUM CARBONATE 09830383107 Active Ramos Myers MD Active B-12 1000 MCG CR-TABS Take one by mouth daily CYANOCOBALAMIN 51382895249 Active Ramos Myers MD Active VITAMIN B-6 100 MG TABS Take one by mouth daily PYRIDOXINE HCL 22234879515 Active Ramos Myers MD Active ASPIRIN 81 MG TAB 1 tablet by mouth daily ASPIRIN 43361232141 Active Ramos Myers MD Active FOLIC ACID 1 MG TABS Take one by mouth daily FOLIC ACID 45219384973 Active Ramos Myers MD Active HYDROCHLOROTHIAZIDE 25 MG TABS 1 tablet by mouth daily HYDROCHLOROTHIAZIDE 76090144602 Active Ramos Myers MD Active METOPROLOL SUCCINATE ER 25 MG [id number] Take one by mouth twice daily METOPROLOL SUCCINATE 11769579788 Active Ramos Myers MD Active SIMVASTATIN 20 MG TABS 1 tab daily at bedtime SIMVASTATIN 20 MG TABS 492578 SIMVASTATIN Inactive DICLOFENAC SODIUM 75 MG TBEC Take one by mouth daily as needed DICLOFENAC SODIUM 75 MG TBEC 283001 DICLOFENAC SODIUM Inactive OMEPRAZOLE 20 MG CPDR 1 tablet by mouth daily, as needed OMEPRAZOLE 20 MG CPDR 304840 OMEPRAZOLE Inactive HYDROXYCHLOROQUINE SULFATE 200 MG TABS by mouth twice a day 12/15 HYDROXYCHLOROQUINE SULFATE 200 MG TABS 295695 HYDROXYCHLOROQUINE SULFATE Inactive PLAVIX 75 MG ORAL TABS 1 tab by mouth daily PLAVIX 75 MG ORAL TABS 817176 CLOPIDOGREL BISULFATE Inactive SIMVASTATIN 20 MG ORAL TABS 1 tab by mouth daily SIMVASTATIN 20 MG ORAL TABS 773800 SIMVASTATIN Inactive AMLODIPINE BESYLATE 10 MG TABS 1 tablet by mouth daily AMLODIPINE BESYLATE 10 MG TABS 116799 AMLODIPINE BESYLATE Inactive TRAMADOL HCL 50 MG TABS Take one by mouth daily as needed TRAMADOL HCL 50 MG TABS 936175 TRAMADOL HCL Inactive CIPRO 500 MG TAB 1 tablet two times daily CIPRO 500 MG TAB 366625 CIPROFLOXACIN HCL Inactive Advance Directives Directive Description [...] negative Encounters Code Encounter Date Provider Facility CPT-78778 Level 3 Est. Patient 19:01:41 CDT Mukund Rivera MD [facility] CPT-05943 Level 3 Est. Patient 23:28:14 CDT Mukund Rivera MD [facility] CPT-69728 Level 3 Est. Patient 14:56:41 SOCIAL SERVICES COORDINATOR Mukund Rivera MD [facility] CPT-44536 Level 3 Est. Patient 16:05:06 SOCIAL SERVICES COORDINATOR Mukund Rivera MD [facility] CPT-01803 Level 3 Est. Patient 14:06:16 SOCIAL SERVICES COORDINATOR Mukund Rivera MD [facility] CPT-34847 Level 3 New Patient 14:46:52 SOCIAL SERVICES COORDINATOR Mukund Rivera [facility] CPT-58130 Level 2 Est. Patient 14:01:01 CDT Ramos Myers MD [facility] CPT-41804 Level 2 Est. Patient 16:14:11 CDT Ramos Myers MD [facility] CPT-05919 Level 2 Est. Patient 14:39:48 CDT Ramos Myers MD [facility] CPT-98896 Level 3 Est. Patient 10:13:26 SOCIAL SERVICES COORDINATOR Ramos Myers [facility] Procedures Code Procedure Name Date Entry Date Standard Description CPT-98027 Postop F/U Visit 10:44:37 CDT CPT-47756 Abd single AP View - XRAY USE ONLY 09:47:35 CDT CPT-55158 Cystoscopy 19:01:42 CDT CPT-66612 Abd single AP View - XRAY USE ONLY 11:35:07 CDT CPT-04280 Postop F/U Visit 10:30:43 CDT CPT-A4357 Overnight urinary bag 10:24:50 CDT CPT-A4340 Indwell urin cath coude 10:24:50 CDT CPT-98985 Insert temp indwelling bld cath comp 10:24:50 CDT 01/14 CPT-A4340 Indwell urin cath coude 15:42:37 CDT CPT-13667 Postop F/U Visit 20:56:46 CDT CPT-51138 Aspiration hydrocele 15:23:51 SOCIAL SERVICES COORDINATOR CPT-LR Lesion Removal 14:01:01 CDT CPT-LR Lesion Removal 16:14:11 CDT CPT-26547 Postop F/U Visit 15:07:25 SOCIAL SERVICES COORDINATOR
--- OUTSIDE RECORDS SUMMARY | 2017-10-22 23:55 | XMS REPORT | Clinical Summary ---
Author Author Admin, E Organization [facility] Address Unknown Phone Unavailable Allergies, Adverse [...] Coronary atherosclerosis of unspecified type of vessel, [place] or graft HYPERTENSION 401.9 Active SHASTA Rosenberg [...] by mouth daily as needed TRAMADOL HCL 29900484895 No Longer Active Mukund Rivera MD Active AMLODIPINE BESYLATE 10 MG ORAL TABLET 1 tablet by mouth daily AMLODIPINE BESYLATE 23354363943 No Longer Active Mukund Rivera MD Active SIMVASTATIN 20 MG ORAL TABLET 1 tab by mouth daily SIMVASTATIN 74677628053 No Longer Active Mukund Rivera MD Active PLAVIX 75 MG ORAL TABLET 1 tab by mouth daily CLOPIDOGREL BISULFATE 26538062333 No Longer Active Mukund Rivera MD Active HYDROXYCHLOROQUINE SULFATE 200 MG ORAL TABLET by mouth twice a day HYDROXYCHLOROQUINE SULFATE 45496497869 No Longer Active Mukund Rivera MD Active CIPRO 500 MG ORAL TABLET 1 tablet two times daily CIPROFLOXACIN HCL 43696784181 No Longer Active Mukund Rivera MD Active OMEPRAZOLE 20 MG ORAL CAPSULE DELAYED RELEASE 1 tablet by mouth daily, as needed OMEPRAZOLE 65870457226 No Longer Active Mukund Rivera MD Active [facility] ORAL CAPSULE Take one by mouth daily PROBIOTIC PRODUCT 59922479169 Active Ramos Myers MD Active KLOR-CON 10 10 MEQ ORAL TABLET EXTENDED RELEASE Take one by mouth daily 05/31 POTASSIUM CHLORIDE 36852516570 Active Ramos Myers MD Active FUROSEMIDE 20 MG ORAL TABLET 1 tablet by mouth daily FUROSEMIDE 44806453498 Active Ramos Myers MD Active METHOTREXATE 2.5 MG ORAL TABLET 6 tabs once a week METHOTREXATE SODIUM 91703786789 Active Ramos Myers MD Active DICLOFENAC SODIUM 75 MG ORAL TABLET DELAYED RELEASE Take one by mouth daily as needed DICLOFENAC SODIUM 21498110369 No Longer Active Ramos Myers MD Active SIMVASTATIN 20 MG ORAL TABLET 1 tab daily at bedtime SIMVASTATIN 54938731056 No Longer Active Ramos Myers MD Active EQL COSPTSGQRTX-LEVODUAOY-QUG 500-400-166 MG ORAL TABLET Take one by mouth daily XQAYOXJZIYL-QEYHRUTATVK-TCQ 92463891788 Active Ramos Myers MD Active CALCIUM CARBONATE 1500 (600 Ca) MG ORAL TABLET Take one by mouth daily 11/29 CALCIUM CARBONATE 81416828056 Active Ramos Myers MD Active B-12 1000 MCG ORAL TABLET EXTENDED RELEASE Take one by mouth daily CYANOCOBALAMIN 58063930944 Active Ramos Myers MD Active VITAMIN B-6 100 MG ORAL TABLET Take one by mouth daily PYRIDOXINE HCL 80297022744 Active Ramos Myers MD Active ASPIRIN 81 MG ORAL TABLET 1 tablet by mouth daily ASPIRIN 94946282656 Active Ramos Myers MD Active FOLIC ACID 1 MG ORAL TABLET Take one by mouth daily FOLIC ACID 89960602132 Active Ramos Myers MD Active HYDROCHLOROTHIAZIDE 25 MG ORAL TABLET 1 tablet by mouth daily HYDROCHLOROTHIAZIDE 48925193016 Active Ramos Myers MD Active METOPROLOL SUCCINATE ER 25 MG ORAL TABLET EXTENDED RELEASE 24 HOUR Take one by mouth twice daily METOPROLOL SUCCINATE 89913118053 Active Ramos Myers MD Active SIMVASTATIN 20 MG ORAL TABLET 1 tab daily at bedtime SIMVASTATIN 20 MG ORAL TABLET 867509 SIMVASTATIN Inactive DICLOFENAC SODIUM 75 MG ORAL TABLET DELAYED RELEASE Take one by mouth daily as needed DICLOFENAC SODIUM 75 MG ORAL TABLET DELAYED RELEASE 179617 DICLOFENAC SODIUM Inactive OMEPRAZOLE 20 MG ORAL CAPSULE DELAYED RELEASE 1 tablet by mouth daily, as needed OMEPRAZOLE 20 MG ORAL CAPSULE DELAYED RELEASE 375601 OMEPRAZOLE Inactive HYDROXYCHLOROQUINE SULFATE 200 MG ORAL TABLET by mouth twice a day HYDROXYCHLOROQUINE SULFATE 200 MG ORAL TABLET 844799 HYDROXYCHLOROQUINE SULFATE Inactive PLAVIX 75 MG ORAL TABLET 1 tab by mouth daily PLAVIX 75 MG ORAL TABLET 440255 CLOPIDOGREL BISULFATE Inactive SIMVASTATIN 20 MG ORAL TABLET 1 tab by mouth daily SIMVASTATIN 20 MG ORAL TABLET 619807 SIMVASTATIN Inactive AMLODIPINE BESYLATE 10 MG ORAL TABLET 1 tablet by mouth daily AMLODIPINE BESYLATE 10 MG ORAL TABLET 621938 AMLODIPINE BESYLATE Inactive TRAMADOL HCL 50 MG ORAL TABLET Take one by mouth daily as needed TRAMADOL HCL 50 MG ORAL TABLET 875085 TRAMADOL HCL Inactive CIPRO 500 MG ORAL TABLET 1 tablet two times daily CIPRO 500 MG ORAL TABLET 613170 CIPROFLOXACIN HCL Inactive Advance Directives Directive Description [...] negative Encounters Code Encounter Date Provider Facility CPT-87225 Level 3 Est. Patient 10:36:44 MANAGER SURGERY Mukund Rivera MD [facility] CPT-38947 Level 3 Est. Patient 19:01:41 CDT Mukund Rivera MD [facility] CPT-10043 Level 3 Est. Patient 23:28:14 CDT Mukund Rivera MD [facility] CPT-65032 Level 3 Est. Patient 14:56:41 MANAGER SURGERY Mukund Rivera MD [facility] CPT-02408 Level 3 Est. Patient 16:05:06 MANAGER SURGERY Mukund Rivera MD [facility] CPT-42949 Level 3 Est. Patient 14:06:16 MANAGER SURGERY Mukund Rivera MD [facility] CPT-80524 Level 3 New Patient 14:46:52 MANAGER SURGERY Mukund Rivera MD [facility] CPT-73499 Level 2 Est. Patient 14:01:01 CDT Ramos Myers MD [facility] CPT-58368 Level 2 Est. Patient 16:14:11 CDT Ramos Myers MD [facility] CPT-66944 Level 2 Est. Patient 14:39:48 CDT Ramos Myers MD [facility] CPT-27544 Level 3 Est. Patient 10:13:26 MANAGER SURGERY Ramos Myers MD [facility] Procedures Code Procedure Name Date Entry Date Standard Description CPT-92633 Abd single AP View - XRAY USE ONLY 09:40:50 MANAGER SURGERY CPT-12404 Postop F/U Visit 10:44:37 CDT CPT-50076 Abd single AP View - XRAY USE ONLY 09:47:35 CDT CPT-75903 Cystoscopy 19:01:42 CDT CPT-23222 Abd single AP View - XRAY USE ONLY 11:35:07 CDT CPT-97509 Postop F/U Visit 10:30:43 CDT CPT-A4357 Overnight urinary bag 10:24:50 CDT CPT-A4340 Indwell urin cath coude 10:24:50 CDT CPT-18649 Insert temp indwelling bld cath comp 10:24:50 CDT 01/14 CPT-A4340 Indwell urin cath coude 15:42:37 CDT CPT-54255 Postop F/U Visit 20:56:46 CDT CPT-33484 Aspiration hydrocele 15:23:51 MANAGER SURGERY CPT-LR Lesion Removal 14:01:01 CDT CPT-LR Lesion Removal 16:14:11 CDT CPT-15154 Postop F/U Visit 15:07:25 MANAGER SURGERY
--- OUTSIDE RECORDS SUMMARY | 2017-10-22 23:56 | XMS REPORT | Clinical Summary ---
Author Author Admin, E Organization [facility] Address Unknown Phone Unavailable Allergies, Adverse Reactions, [...] Coronary atherosclerosis of unspecified type of vessel, [place] or graft HYPERTENSION 401.9 Active SHASTA Rosenberg [...] by mouth daily as needed TRAMADOL HCL 69762133311 No Longer Active Mukund Rivera MD Active AMLODIPINE BESYLATE 10 MG ORAL TABLET 1 tablet by mouth daily AMLODIPINE BESYLATE 29361904818 No Longer Active Mukund Rivera MD Active SIMVASTATIN 20 MG ORAL TABLET 1 tab by mouth daily SIMVASTATIN 93808472266 No Longer Active Mukund Rivera MD Active PLAVIX 75 MG ORAL TABLET 1 tab by mouth daily CLOPIDOGREL BISULFATE 51806963486 No Longer Active Mukund Rivera MD Active HYDROXYCHLOROQUINE SULFATE 200 MG ORAL TABLET by mouth twice a day HYDROXYCHLOROQUINE SULFATE 12357023044 No Longer Active Mukund Rivera MD Active CIPRO 500 MG ORAL TABLET 1 tablet two times daily CIPROFLOXACIN HCL 15258402834 No Longer Active Mukund Rivera MD Active OMEPRAZOLE 20 MG ORAL CAPSULE DELAYED RELEASE 1 tablet by mouth daily, as needed OMEPRAZOLE 39556104281 No Longer Active Mukund Rivera MD Active [facility] ORAL CAPSULE Take one by mouth daily PROBIOTIC PRODUCT 26392566239 Active Ramos Myers MD Active KLOR-CON 10 10 MEQ ORAL TABLET EXTENDED RELEASE Take one by mouth daily 05/31 POTASSIUM CHLORIDE 85088394985 Active Ramos Myers MD Active FUROSEMIDE 20 MG ORAL TABLET 1 tablet by mouth daily FUROSEMIDE 81213731058 Active Ramos Myers MD Active METHOTREXATE 2.5 MG ORAL TABLET 6 tabs once a week METHOTREXATE SODIUM 74452236559 Active Ramos Myers MD Active DICLOFENAC SODIUM 75 MG ORAL TABLET DELAYED RELEASE Take one by mouth daily as needed DICLOFENAC SODIUM 22338661013 No Longer Active Ramos Myers MD Active SIMVASTATIN 20 MG ORAL TABLET 1 tab daily at bedtime SIMVASTATIN 41630760775 No Longer Active Ramos Myers MD Active EQL XNVHDMWQIOB-XJUIJOFYV-MTT 500-400-166 MG ORAL TABLET Take one by mouth daily INHFVTDFRCP-QKWOUBFINZU-JGS 05294151174 Active Ramos Myers MD Active CALCIUM CARBONATE 1500 (600 Ca) MG ORAL TABLET Take one by mouth daily 11/29 CALCIUM CARBONATE 45429124191 Active Ramos Myers MD Active B-12 1000 MCG ORAL TABLET EXTENDED RELEASE Take one by mouth daily CYANOCOBALAMIN 10276066684 Active Ramos Myers MD Active VITAMIN B-6 100 MG ORAL TABLET Take one by mouth daily PYRIDOXINE HCL 59272997969 Active Ramos Myers MD Active ASPIRIN 81 MG ORAL TABLET 1 tablet by mouth daily ASPIRIN 28708352751 Active Ramos Myers MD Active FOLIC ACID 1 MG ORAL TABLET Take one by mouth daily FOLIC ACID 55908953529 Active Ramos Myers MD Active HYDROCHLOROTHIAZIDE 25 MG ORAL TABLET 1 tablet by mouth daily HYDROCHLOROTHIAZIDE 25542863372 Active Ramos Myers MD Active METOPROLOL SUCCINATE ER 25 MG ORAL TABLET EXTENDED RELEASE 24 HOUR Take one by mouth twice daily METOPROLOL SUCCINATE 77095339767 Active Ramos Myers MD Active SIMVASTATIN 20 MG ORAL TABLET 1 tab daily at bedtime SIMVASTATIN 20 MG ORAL TABLET 742345 SIMVASTATIN Inactive DICLOFENAC SODIUM 75 MG ORAL TABLET DELAYED RELEASE Take one by mouth daily as needed DICLOFENAC SODIUM 75 MG ORAL TABLET DELAYED RELEASE 471023 DICLOFENAC SODIUM Inactive OMEPRAZOLE 20 MG ORAL CAPSULE DELAYED RELEASE 1 tablet by mouth daily, as needed OMEPRAZOLE 20 MG ORAL CAPSULE DELAYED RELEASE 029737 OMEPRAZOLE Inactive HYDROXYCHLOROQUINE SULFATE 200 MG ORAL TABLET by mouth twice a day HYDROXYCHLOROQUINE SULFATE 200 MG ORAL TABLET 636734 HYDROXYCHLOROQUINE SULFATE Inactive PLAVIX 75 MG ORAL TABLET 1 tab by mouth daily PLAVIX 75 MG ORAL TABLET 668685 CLOPIDOGREL BISULFATE Inactive SIMVASTATIN 20 MG ORAL TABLET 1 tab by mouth daily SIMVASTATIN 20 MG ORAL TABLET 781649 SIMVASTATIN Inactive AMLODIPINE BESYLATE 10 MG ORAL TABLET 1 tablet by mouth daily AMLODIPINE BESYLATE 10 MG ORAL TABLET 148381 AMLODIPINE BESYLATE Inactive TRAMADOL HCL 50 MG ORAL TABLET Take one by mouth daily as needed TRAMADOL HCL 50 MG ORAL TABLET 616288 TRAMADOL HCL Inactive CIPRO 500 MG ORAL TABLET 1 tablet two times daily CIPRO 500 MG ORAL TABLET 700294 CIPROFLOXACIN HCL Inactive Advance Directives Directive Description [...] negative Encounters Code Encounter Date Provider Facility CPT-45560 Level 3 Est. Patient 10:36:44 PATCHER BOWLING BALL Mukund Rivera MD [facility] CPT-77843 Level 3 Est. Patient 19:01:41 CDT Mukund Rivera MD [facility] CPT-02920 Level 3 Est. Patient 23:28:14 CDT Mukund Rivera MD [facility] CPT-56638 Level 3 Est. Patient 14:56:41 PATCHER BOWLING BALL Mukund Rivera MD [facility] CPT-27565 Level 3 Est. Patient 16:05:06 PATCHER BOWLING BALL Mukund Rivera MD [facility] CPT-69682 Level 3 Est. Patient 14:06:16 PATCHER BOWLING BALL Mukund Rivera MD [facility] CPT-90908 Level 3 New Patient 14:46:52 PATCHER BOWLING BALL Mukund Rivera MD [facility] CPT-55981 Level 2 Est. Patient 14:01:01 CDT Ramos Myers MD [facility] CPT-18618 Level 2 Est. Patient 16:14:11 CDT Ramos Myers MD [facility] CPT-37800 Level 2 Est. Patient 14:39:48 CDT Ramos Myers MD [facility] CPT-95447 Level 3 Est. Patient 10:13:26 PATCHER BOWLING BALL Ramos Myers MD [facility] Procedures Code Procedure Name Date Entry Date Standard Description CPT-51386 Abd single AP View - XRAY USE ONLY 09:40:50 PATCHER BOWLING BALL CPT-39607 Postop F/U Visit 10:44:37 CDT CPT-86175 Abd single AP View - XRAY USE ONLY 09:47:35 CDT CPT-79494 Cystoscopy 19:01:42 CDT CPT-44321 Abd single AP View - XRAY USE ONLY 11:35:07 CDT CPT-52890 Postop F/U Visit 10:30:43 CDT CPT-A4357 Overnight urinary bag 10:24:50 CDT CPT-A4340 Indwell urin cath coude 10:24:50 CDT CPT-73040 Insert temp indwelling bld cath comp 10:24:50 CDT 01/14 CPT-A4340 Indwell urin cath coude 15:42:37 CDT CPT-90767 Postop F/U Visit 20:56:46 CDT CPT-17523 Aspiration hydrocele 15:23:51 PATCHER BOWLING BALL CPT-LR Lesion Removal 14:01:01 CDT CPT-LR Lesion Removal 16:14:11 CDT CPT-45552 Postop F/U Visit 15:07:25 PATCHER BOWLING BALL
--- OUTSIDE RECORDS SUMMARY | 2017-10-22 23:56 | XMS REPORT | Clinical Summary ---
Author Author Admin, E Organization [facility] Address Unknown Phone Unavailable Allergies, Adverse [...] Coronary atherosclerosis of unspecified type of vessel, [place] or graft HYPERTENSION 401.9 Active SHASTA Rosenberg [...] by mouth daily as needed TRAMADOL HCL 63151337423 No Longer Active Mukund Rivera MD Active AMLODIPINE BESYLATE 10 MG TABS 1 tablet by mouth daily AMLODIPINE BESYLATE 58378725552 No Longer Active Mukund Rivera MD Active SIMVASTATIN 20 MG ORAL TABS 1 tab by mouth daily SIMVASTATIN 57122447052 No Longer Active Mukund Rivera MD Active PLAVIX 75 MG ORAL TABS 1 tab by mouth daily CLOPIDOGREL BISULFATE 50096389524 No Longer Active Mukund Rivera MD Active HYDROXYCHLOROQUINE SULFATE 200 MG TABS by mouth twice a day 12/15 HYDROXYCHLOROQUINE SULFATE 42022896672 No Longer Active Mukund Rivera MD Active CIPRO 500 MG TAB 1 tablet two times daily CIPROFLOXACIN HCL 85101387269 No Longer Active Mukund Rivera MD Active OMEPRAZOLE 20 MG CPDR 1 tablet by mouth daily, as needed OMEPRAZOLE 23330566281 No Longer Active Mukund Rivera MD Active ORE[employer] CAPS Take one by mouth daily PROBIOTIC PRODUCT 44534639731 Active Ramos Myers MD Active KLOR-CON 10 10 MEQ CR-TABS Take one by mouth daily POTASSIUM CHLORIDE 01049877457 Active Ramos Myers MD Active FUROSEMIDE 20 MG TAB 1 tablet by mouth daily FUROSEMIDE 82069605677 Active Ramos Myers MD Active METHOTREXATE 2.5 MG TABS 6 tabs once a week METHOTREXATE SODIUM 04035326968 Active Ramos Myers MD Active DICLOFENAC SODIUM 75 MG TBEC Take one by mouth daily as needed DICLOFENAC SODIUM 43536199684 No Longer Active Ramos Myers MD Active SIMVASTATIN 20 MG TABS 1 tab daily at bedtime SIMVASTATIN 18606570357 No Longer Active Ramos Myers MD Active EQL YDAPIWUINSH-MQVRQEBOW-VAS 500-400-166 MG TABS Take one by mouth daily [id number]-PFUEGGSEDWK-IAF 94940712057 Active Ramos Myers MD Active CALCIUM 1500 MG TAB Take one by mouth daily CALCIUM CARBONATE 92398280487 Active Ramos Myers MD Active B-12 1000 MCG CR-TABS Take one by mouth daily CYANOCOBALAMIN 01486097043 Active Ramos Myers MD Active VITAMIN B-6 100 MG TABS Take one by mouth daily PYRIDOXINE HCL 98803705370 Active Ramos Myers MD Active ASPIRIN 81 MG TAB 1 tablet by mouth daily ASPIRIN 80003175680 Active Ramos Myers MD Active FOLIC ACID 1 MG TABS Take one by mouth daily FOLIC ACID 59656778951 Active Ramos Myers MD Active HYDROCHLOROTHIAZIDE 25 MG TABS 1 tablet by mouth daily HYDROCHLOROTHIAZIDE 11687435522 Active Ramos Myers MD Active METOPROLOL SUCCINATE ER 25 MG [id number]-JNE Take one by mouth twice daily METOPROLOL SUCCINATE 50099853801 Active Ramos Myers MD Active SIMVASTATIN 20 MG TABS 1 tab daily at bedtime SIMVASTATIN 20 MG TABS 702397 SIMVASTATIN Inactive DICLOFENAC SODIUM 75 MG TBEC Take one by mouth daily as needed DICLOFENAC SODIUM 75 MG TBEC 959850 DICLOFENAC SODIUM Inactive OMEPRAZOLE 20 MG CPDR 1 tablet by mouth daily, as needed OMEPRAZOLE 20 MG CPDR 171506 OMEPRAZOLE Inactive HYDROXYCHLOROQUINE SULFATE 200 MG TABS by mouth twice a day 12/15 HYDROXYCHLOROQUINE SULFATE 200 MG TABS 136235 HYDROXYCHLOROQUINE SULFATE Inactive PLAVIX 75 MG ORAL TABS 1 tab by mouth daily PLAVIX 75 MG ORAL TABS 141588 CLOPIDOGREL BISULFATE Inactive SIMVASTATIN 20 MG ORAL TABS 1 tab by mouth daily SIMVASTATIN 20 MG ORAL TABS 818631 SIMVASTATIN Inactive AMLODIPINE BESYLATE 10 MG TABS 1 tablet by mouth daily AMLODIPINE BESYLATE 10 MG TABS 538542 AMLODIPINE BESYLATE Inactive TRAMADOL HCL 50 MG TABS Take one by mouth daily as needed TRAMADOL HCL 50 MG TABS 995188 TRAMADOL HCL Inactive CIPRO 500 MG TAB 1 tablet two times daily CIPRO 500 MG TAB 747447 CIPROFLOXACIN HCL Inactive Advance Directives Directive Description [...] negative Encounters Code Encounter Date Provider Facility CPT-63664 Level 3 Est. Patient 19:01:41 KARLIE Rivera MD [facility] CPT-86507 Level 3 Est. Patient 23:28:14 CDT Mukund Rivera MD [facility] CPT-38690 Level 3 Est. Patient 14:56:41 [employer] Mukund Rivera MD [facility] CPT-06106 Level 3 Est. Patient 16:05:06 [employer] Mukund Rivera MD [facility] CPT-62652 Level 3 Est. Patient 14:06:16 [employer] Mukund Rivera MD [facility] CPT-76648 Level 3 New Patient 14:46:52 [employer] Mukund Rivera MD [facility] CPT-57956 Level 2 Est. Patient 14:01:01 CDT Ramos Myers MD [facility] CPT-19490 Level 2 Est. Patient 16:14:11 CDT Ramos Myers MD [facility] CPT-35375 Level 2 Est. Patient 14:39:48 CDT Ramos Myers MD [facility] CPT-45554 Level 3 Est. Patient 10:13:26 [employer] Ramos Myers MD [facility] Procedures Code Procedure Name Date Entry Date Standard Description CPT-29651 Cystoscopy 19:01:42 CDT CPT-76992 Abd single AP View - XRAY USE ONLY 11:35:07 CDT CPT-66469 Postop F/U Visit 10:30:43 CDT CPT-A4357 Overnight urinary bag 10:24:50 CDT CPT-A4340 Indwell urin cath coude 10:24:50 CDT CPT-65433 Insert temp indwelling bld cath comp 10:24:50 CDT 01/14 CPT-A4340 Indwell urin cath coude 15:42:37 CDT CPT-24948 Postop F/U Visit 20:56:46 CDT CPT-28604 Aspiration hydrocele 15:23:51 [employer] CPT-LR Lesion Removal 14:01:01 CDT CPT-LR Lesion Removal 16:14:11 CDT CPT-23118 Postop F/U Visit 15:07:25 [employer]
--- OUTSIDE RECORDS SUMMARY | 2017-10-22 23:57 | XMS REPORT ---
Author Author [facility] Medical Staff Organization [facility] Address [address] [place] [id number] Phone [phone] Care Team Providers Care Policy Value Calculator Name Role Phone BRUNILDA BENAVIDES MD, PP [phone] Summary purpose TRANSITION OF CARE AUTO GENERATION Chief Complaint and Reason for Visit No authorized Reason for Visit (Admitting Diagnosis) is available for this visit. Problem list No authorized problems tracked for continuity of care are available for this visit. Encounters No authorized problems tracked for encounter diagnoses are available for this visit. Medications No home medications recorded for this patient visit Allergies, [...] Relevant diagnostic tests and/or laboratory data RESULTS Radiology Results [id number]:59:00 Chest X-Ray - 2 View PACs Image DATE OF EXAM: Feb 04 2015 RAD 0300-CHEST XRAY 2 VIEW : RADIOLOGY REPORT DATE OF SERVICE:02/04/15. HISTORY:Patient has a cough since 01/31/15. CHEST 2 VIEWS 1020 HOURS The patient has undergone coronary artery bypass surgery.Heart size is normal. Annamaria are somewhat prominent. I cannot totally exclude potential adenopathy. CT study of the chest suggested. This likely represents pulmonary arteries, but this cannot be determined with certainty. Lungs are clear. No effusion is seen. IMPRESSION:Prominent annamaria. Part of this is due to the AP technique, but I would suggest a CT with contrast if patient is able to be certain there is no adenopathy, especially in the right hilar area. Chest otherwise unremarkable. DO CLEMENTINA Vásquez/jessi 02/04/2015 11:16:02/04/2015 11:46:45 cc:Dr. Brunilda Benavides This document has been electronically Signed by: On: DATE OF EXAM: Feb 04 2015 RAD 0300-CHEST XRAY 2 VIEW : RADIOLOGY REPORT DATE OF SERVICE:02/04/15. HISTORY:Patient has a cough since 01/31/15. CHEST 2 VIEWS 1020 HOURS The patient has undergone coronary artery bypass surgery.Heart size is normal. Annamaria are somewhat prominent. I cannot totally exclude potential adenopathy. CT study of the chest suggested. This likely represents pulmonary arteries, but this cannot be determined with certainty. Lungs are clear. No effusion is seen. IMPRESSION:Prominent annamaria. Part of this is due to the AP technique, but I would suggest a CT with contrast if patient is able to be certain there is no adenopathy, especially in the right hilar area. Chest otherwise unremarkable. DO Kanwal Vásquez 02/04/2015 11:16:02/04/2015 11:46:45 cc:Dr. Brunilda Benavides This document has been electronically Signed by: FILIPE AUSTIN DO On: Feb 04 2015 12:59P Result Amended on 2015-02-04 at 12:59:32. Previous status was DC. History of procedures No procedures recorded for [...]
--- OUTSIDE RECORDS SUMMARY | 2017-10-22 23:57 | XMS REPORT ---
Author Author [facility] Medical Staff Organization [facility] Address [address] [place] [id number] Phone [phone] Summary purpose TRANSITION OF CARE AUTO GENERATION [...] Relevant diagnostic tests and/or laboratory data RESULTS Routine Urinalysis [id number]:15:00 Result Normal Range Units Color YELLOW Clarity Clear Specific [place] 1.015 1.003-1.035 pH 6.5 4.5-8.0 Glucose NEGATIVE Bilirubin NEGATIVE Ketones NEGATIVE Protein NEGATIVE Urobilinogen 0.2 0-0.2 E.U./dL Nitrites NEGATIVE Blood NEGATIVE Leukocytes NEGATIVE WBCs 0-5 RBCs 0-5 Squamous Epithelial Few Bacteria Rare Amount Mucous Occasional Chemistry :15:00 Result Normal Range Units Sodium 139 134-145 mEq/l Potassium 3.7 3.5-5.1 mEq/l Chloride 104 98-107 mEq/l CO2 H 29.7 22-28 mEq/l Glucose 89 70-105 mg/dl BUN 15 7-18 mg/dl Creatinine 0.99 0.6-1.3 mg/dl Triglycerides 63 35-160 mg/dl Cholesterol L 117 120-200 mg/dl HDL Cholesterol 64 32-72 mg/dl VLDL Cholesterol 13 5-40 mg/dl LDL Cholesterol 56 30-100 mg/dl Calcium 9.4 8.4-10.2 mg/dl TP - Total Protein 6.9 6.0-8.3 g/dl Albumin 3.9 3.5-5 g/dl Bilirubin - Total 0.7 0.1-1.0 mg/dl AST 29 10-42 IU/L ALT 45 12-65 IU/L ALP 79 39-107 IU/L Osmolality L 277.8 280-300 mOsm/L Albumin/Globulin Ratio 1.3 0-8 Anion GAP L 5.3 8-16 BUN/Creatinine Ratio 15.2 10-20 Estimated GFR 74 >=60 mL/min/1.7 C-Reactive Protein < 0.2 0-1 mg/dl Hematology 54-13-082525:15:00 Result Normal Range Units WBC 8.0 4.8-10.8 103/uL RBC 4.7 4.7-6.1 106/uL HGB 15.2 13.0-18.0 g/dl HCT 45.2 41.9-52.0 % MCV H 95.8 80-94 FL MCH H 32.2 27-31 pg MCHC 33.6 33-37 g/dl RDW 14.3 11.5-15.5 % PLT 187 130-400 103/uL MPV 9.8 7.3-10.4 FL Neutro % 67.1 40-70 % Lymph % L 17.1 20-40 % [place] % H 11.4 0-10.0 % Eos % 3.8 0-7.0 % Baso % 0.5 0-2 % Neutro # 5.4 1.5-7.5 103/uL Lymph # 1.4 0.9-4.0 103/uL [place] # H 0.9 0-0.8 103/uL Eos # 0.3 0-0.6 103/uL Baso # 0.0 0-0.1 103/uL Reference Lab ([facility]) :15:00 Result Normal Range Units PSA 0.41 0-4.0 ng/ml Patient samples may contain heterophilic antibodies that could react in immunoassays to give falsely elevated or depressed results. This Dimension assay has been designed to minimize interference from heterophilic antibodies. Nevertheless, complete elimination of this interference from all patient specimens cannot be guaranteed. A test result that is inconsistent with the clinical picture and patient history should be interpreted with caution. Body Fluid :15:00 Result Normal Range Units pH 6.5 4.5-8.0 Hematology - Other (Misc) :15:00 Result Normal Range Units Sed Rate 3 0-20 Thyroid Testing :15:00 Result Normal Range Units TSH 1.85 0.36-3.74 uIU/mL Radiology Results :15:00 Result Normal Range Units MPV 9.8 7.3-10.4 FL History of procedures Procedure Code Code Type Description Date Performed Performing Physician 88852 CPT-4 C-REACTIVE PROTEIN 10-23-2015 DONOVAN RADADIYA 24338 CPT-4 COMPLETE CBC W/AUTO DIFF WBC 10-23-2015 DONOVAN RADADIYA 39256 CPT-4 COMPREHEN METABOLIC PANEL 10-23-2015 DONOVAN RADADIYA 46011 CPT-4 LIPID PANEL 10-23-2015 DONOVAN RADADIYA G0103 CPT-4 PSA SCREENING 10-23-2015 DONOVAN RADADIYA 93861 CPT-4 RBC SED RATE NONAUTOMATED 10-23-2015 DONOVAN RADADIYA 20410 CPT-4 ASSAY THYROID STIM HORMONE 10-23-2015 DONOVAN RADADIYA 40912 CPT-4 URINALYSIS AUTO W/SCOPE 10-23-2015 DONOVAN RADADIYA Functional status No functional or cognitive status [...]
--- OUTSIDE RECORDS SUMMARY | 2017-10-22 23:57 | XMS REPORT ---
Author Author [facility] Medical Staff Organization [facility] Address [address] [place], [place] [address] Phone [phone] Care Team Providers Care Turner And Former Automatic Name Role Phone BRUNILDA BENAVIDES MD, PP [phone] Summary purpose TRANSITION OF CARE AUTO GENERATION [...] Drug Allergy hydrochlorothiazide Confirmed or Verified itching Cipro Drug Allergy Cipro Confirmed or Verified Cipro Drug Allergy ciprofloxacin Confirmed or Verified Immunizations No immunizations recorded for this patient visit Relevant diagnostic tests and/or laboratory data RESULTS Radiology Results [id number]:34:00 MYOCARDIAL SPECT MULT PACs Image DATE OF EXAM: Mar 10 2016 [id number] SPECT MULTIPLE : RADIOLOGY REPORT DATE OF SERVICE: 03/10/16 HISTORY: Shortness of air, coronary artery bypass graft PHARMACOLOGICAL STRESS AND RESTING MYOCARDIAL PERFUSION STUDY (LEXISCAN CARDIOLITE STUDY)1000 HOURS The patient initially is given 8.1 mCi of technetium 99m labeled Cardiolite intravenously. After a 70 minute delay, resting SPECT perfusion images are obtained. The patient is then given the pharmacological stress agent by the referring clinician. At maximal stress, the patient is given 30.4 mCi of technetium 99m labeled Cardiolite intravenously. After a 74 minute delay, gated stress SPECT perfusion images are obtained. Today's study is compared with a report from a previous study from 09 August 2015. The images are not available. There is a fixed perfusion defect involving the inferior wall of the left ventricle as described previously. This is identical on the stress and rest images. This area actually moves normally on the gated study, so this appears to represent a technical artifact. There is a minor perfusion defect along the anterior wall of the left ventricle. This is present on both the stress and resting images also with the differential diagnosis including an area of previous infarction versus a technical artifact. On today's study this does not appear to represent reversible ischemia. The stress and resting images on today's study are essentially identical, so there is no evidence for any reversible ischemia. On the gated study, the left ventricular ejection fraction is calculated at 53% which is normal. The end-diastolic volume is 131 cc with the end systolic volume being 62 cc. There is some decreased myocardial wall motion along the apex and inferior apical region, but there is no paradoxical motion on today's study with no evidence for a ventricular aneurysm. IMPRESSION: 1. On today's study there continues to be a fixed perfusion defect along the inferior wall of the left ventricle present on both the stress and resting images. This area does move normally, however, and appears to represent a technical artifact although an area of previous infarction is in the differential diagnosis. 2. There is also a minor perfusion defect along the anterior wall of the left ventricle which is essentially the same on both the stress and resting images and probably represents a small area of previous infarction although a technical artifact is in the differential diagnosis. 3. The stress and resting images are identical so there is no evidence for any reversible ischemia on today's study. 4. The gated study has a left ventricular ejection fraction calculated at 53% which is normal. The area along the apex and apical septal region does move less than the remainder of the left ventricular wall not, but there is no evidence for any ventricular aneurysm on today's study. S MD AFSHAN Nguyen/nj03/10/2016 13:41:00 / 03/10/2016 13:52:22 cc:Dr. Stevo Benavides This document has been electronically Signed by: On: History of procedures Procedure Code Code Type Description Date Performed Performing Physician 59517 CPT-4 CARDIOVASCULAR STRESS TEST 03-10-2016 BRUNILDA BENAVIDES 78299 CPT-4 HT MUSCLE IMAGE SPECT, MULT 03-10-2016 BRUNILDA BENAVIDES A9500 CPT-4 TC99M SESTAMIBI 03-10-2016 BRUNILDA BENAVIDES J2785 CPT-4 REGADENOSON INJECTION 03-10-2016 BRUNILDA BENAVIDES Functional status Functional Status Finding Observation Time IV Site Location Left hand 17-74-523099:38 IV Type peripheral :38 IV Site Information discontinued 58-20-895299:36 IV Site Start Attmpt 2 times 82-36-991259:38 IV Site Boyd 22 89-87-804160:38 IV Site Appearance WNL 51-01-889406:36 IV Site Color clear 32-91-281434:36 IV Site Patent yes :36 Dressing Type gauze 03-07-206748:36 Nursing Note Second set of scans completed. Verbal and written discharge instructions given. Patient voices understanding. Patient also given a to go bag with juice and peanut butter crackers. Chest pain remained at a "0". Patient ambulated from unit in good condition. 01-80-842994:03 Vital signs Type Value Date Height 74inches 81-10-202691:44 Weight 180LB 24-89-564234:44 Social history No Social History or smoking status observations were recorded for this visit. ( Unknown if ever smoked.) Treatment Plan No treatment plan text is available for this visit. Hospital discharge instructions Discharge Date/Time 03/10/2016 1003 Accompanied By Kathy Relationship spouse/signif other Dismissal Condition good Disposition on DC other (specify) Valuables yes Valuable Type other (specify) Comment: corie Valuables Returned T patient DC Inst/Educ Give yes
--- OUTSIDE RECORDS SUMMARY | 2017-10-22 23:57 | XMS REPORT | Clinical Summary ---
Author Author Admin, NUZHAT Organization [facility] Address Unknown Phone Unavailable Allergies, Adverse [...] Coronary atherosclerosis of unspecified type of vessel, [place] or graft HYPERTENSION 401.9 Active SHASTA Rosenberg [...] by mouth daily as needed TRAMADOL HCL 78223082963 No Longer Active Mukund Rivera MD Active AMLODIPINE BESYLATE 10 MG TABS 1 tablet by mouth daily AMLODIPINE BESYLATE 64972861736 No Longer Active Mukund Rivera MD Active SIMVASTATIN 20 MG ORAL TABS 1 tab by mouth daily SIMVASTATIN 44319932574 No Longer Active Mukund Rivera MD Active PLAVIX 75 MG ORAL TABS 1 tab by mouth daily CLOPIDOGREL BISULFATE 94138749759 No Longer Active Mukund Rivera MD Active HYDROXYCHLOROQUINE SULFATE 200 MG TABS by mouth twice a day 12/15 HYDROXYCHLOROQUINE SULFATE 17500900279 No Longer Active Mukund Rivera MD Active CIPRO 500 MG TAB 1 tablet two times daily CIPROFLOXACIN HCL 28571697023 No Longer Active Mukund Rivera MD Active OMEPRAZOLE 20 MG CPDR 1 tablet by mouth daily, as needed OMEPRAZOLE 17544247736 No Longer Active Mukund Rivera MD Active O[employer] CAPS Take one by mouth daily PROBIOTIC PRODUCT 27141712142 Active Ramos Myers MD Active KLOR-CON 10 10 MEQ CR-TABS Take one by mouth daily POTASSIUM CHLORIDE 61703101400 Active Ramos Myers MD Active FUROSEMIDE 20 MG TAB 1 tablet by mouth daily FUROSEMIDE 98339252477 Active Ramos Myers MD Active METHOTREXATE 2.5 MG TABS 6 tabs once a week METHOTREXATE SODIUM 31623260917 Active Ramos Myers MD Active DICLOFENAC SODIUM 75 MG TBEC Take one by mouth daily as needed DICLOFENAC SODIUM 89134195448 No Longer Active Ramos Myers MD Active SIMVASTATIN 20 MG TABS 1 tab daily at bedtime SIMVASTATIN 27345583927 No Longer Active Ramos Myers MD Active EQL DJCEOBKVVZC-QLNQIADAC-MES 500-400-166 MG TABS Take one by mouth daily RBPPQYJLRNJ-AAYXMKHMCUK-VGC 16371567933 Active Ramos Myers MD Active CALCIUM 1500 MG TAB Take one by mouth daily CALCIUM CARBONATE 94309740771 Active Ramos Myers MD Active B-12 1000 MCG CR-TABS Take one by mouth daily CYANOCOBALAMIN 15707133490 Active Ramos Myers MD Active VITAMIN B-6 100 MG TABS Take one by mouth daily PYRIDOXINE HCL 39264992315 Active Ramos Myers MD Active ASPIRIN 81 MG TAB 1 tablet by mouth daily ASPIRIN 60175632395 Active Ramos Myers MD Active FOLIC ACID 1 MG TABS Take one by mouth daily FOLIC ACID 42569429203 Active Ramos Myers MD Active HYDROCHLOROTHIAZIDE 25 MG TABS 1 tablet by mouth daily HYDROCHLOROTHIAZIDE 38809995219 Active Ramos Myers MD Active METOPROLOL SUCCINATE ER 25 MG [id number]-[id number] Take one by mouth twice daily METOPROLOL SUCCINATE 99231050672 Active Ramos Myers MD Active SIMVASTATIN 20 MG TABS 1 tab daily at bedtime SIMVASTATIN 20 MG TABS 920093 SIMVASTATIN Inactive DICLOFENAC SODIUM 75 MG TBEC Take one by mouth daily as needed DICLOFENAC SODIUM 75 MG TBEC 903013 DICLOFENAC SODIUM Inactive OMEPRAZOLE 20 MG CPDR 1 tablet by mouth daily, as needed OMEPRAZOLE 20 MG CPDR 566492 OMEPRAZOLE Inactive HYDROXYCHLOROQUINE SULFATE 200 MG TABS by mouth twice a day 12/15 HYDROXYCHLOROQUINE SULFATE 200 MG TABS 150383 HYDROXYCHLOROQUINE SULFATE Inactive PLAVIX 75 MG ORAL TABS 1 tab by mouth daily PLAVIX 75 MG ORAL TABS 124020 CLOPIDOGREL BISULFATE Inactive SIMVASTATIN 20 MG ORAL TABS 1 tab by mouth daily SIMVASTATIN 20 MG ORAL TABS 550677 SIMVASTATIN Inactive AMLODIPINE BESYLATE 10 MG TABS 1 tablet by mouth daily AMLODIPINE BESYLATE 10 MG TABS 836572 AMLODIPINE BESYLATE Inactive TRAMADOL HCL 50 MG TABS Take one by mouth daily as needed TRAMADOL HCL 50 MG TABS 041936 TRAMADOL HCL Inactive CIPRO 500 MG TAB 1 tablet two times daily CIPRO 500 MG TAB 033452 CIPROFLOXACIN HCL Inactive Advance Directives Directive Description Start Date PERMISSION TO [facility] WILL ON FILE Vital Signs Date Name Value Unit Range Description blood pressure, diastolic - 8462-4 72 mm[Hg] BP desai blood pressure, systolic - 8480-6 120 mm[Hg] BP sys pulse rate E&M - 8867-4 71 /min Heart rate temperature E&M 98.4 [degF] Body temperature weight E&M - 3141-9 181 [lb_av] Weight Measured blood pressure, diastolic - 8462-4 70 mm[Hg] BP edsai blood pressure, systolic - 8480-6 120 mm[Hg] [...] Measured Encounters Code Encounter Date Provider Facility CPT-69283 Level 3 Est. Patient 23:28:14 CDT Mukund Rivera MD [facility] CPT-44757 Level 3 Est. Patient 14:56:41 PASTRYCOOK Mukund Rivera MD [facility] CPT-32595 Level 3 Est. Patient 16:05:06 PASTRYCOOK Mukund Rivera MD [facility] CPT-26418 Level 3 Est. Patient 14:06:16 PASTRYCOOK Mukund Rivera MD [facility] CPT-82517 Level 3 New Patient 14:46:52 PASTRYCOOK Mukund Rivera MD [facility] CPT-11650 Level 2 Est. Patient 14:01:01 CDT Ramos Myers MD [facility] CPT-42331 Level 2 Est. Patient 16:14:11 CDT Ramos Myers MD [facility] CPT-46133 Level 2 Est. Patient 14:39:48 CDT Ramos Myers MD [facility] CPT-34494 Level 3 Est. Patient 10:13:26 PASTRYCOOK Ramos Myers MD [facility] Procedures Code Procedure Name Date Entry Date Standard Description CPT-A4357 Overnight urinary bag 10:24:50 CDT CPT-A4340 Indwell urin cath coude 10:24:50 CDT CPT-73994 Insert temp indwelling bld cath comp 10:24:50 CDT 01/14 CPT-A4340 Indwell urin cath coude 15:42:37 CDT CPT-75459 Postop F/U Visit 20:56:46 CDT CPT-80489 Aspiration hydrocele 15:23:51 PASTRYCOOK CPT-LR Lesion Removal 14:01:01 CDT CPT-LR Lesion Removal 16:14:11 CDT CPT-01917 Postop F/U Visit 15:07:25 PASTRYCOOK
--- OUTSIDE RECORDS SUMMARY | 2017-10-22 23:58 | XMS REPORT | Clinical Summary ---
Author Author Admin, E Organization [facility] Address Unknown Phone Unavailable Allergies, Adverse [...] Coronary atherosclerosis of unspecified type of vessel, [place] or graft HYPERTENSION 401.9 Active SHASTA Rosenberg [...] by mouth daily as needed TRAMADOL HCL 49984389983 No Longer Active Mukund Rivera MD Active AMLODIPINE BESYLATE 10 MG TABS 1 tablet by mouth daily AMLODIPINE BESYLATE 19098932010 No Longer Active Mukund Rivera MD Active SIMVASTATIN 20 MG ORAL TABS 1 tab by mouth daily SIMVASTATIN 90900837926 No Longer Active Mukund Rivera MD Active PLAVIX 75 MG ORAL TABS 1 tab by mouth daily CLOPIDOGREL BISULFATE 11656704625 No Longer Active Mukund Rivera MD Active HYDROXYCHLOROQUINE SULFATE 200 MG TABS by mouth twice a day 12/15 HYDROXYCHLOROQUINE SULFATE 85477842389 No Longer Active Mukund Rivera MD Active CIPRO 500 MG TAB 1 tablet two times daily CIPROFLOXACIN HCL 04659974997 No Longer Active Mukund Rivera MD Active OMEPRAZOLE 20 MG CPDR 1 tablet by mouth daily, as needed OMEPRAZOLE 25370319606 No Longer Active Mukund Rivera MD Active [employer] [facility] CAPS Take one by mouth daily PROBIOTIC PRODUCT 40745901030 Active Ramos Myers MD Active KLOR-CON 10 10 MEQ CR-TABS Take one by mouth daily POTASSIUM CHLORIDE 55548138945 Active Ramos Myers MD Active FUROSEMIDE 20 MG TAB 1 tablet by mouth daily FUROSEMIDE 78575104957 Active Ramos Myers MD Active METHOTREXATE 2.5 MG TABS 6 tabs once a week METHOTREXATE SODIUM 93622330516 Active Ramos Meyrs MD Active DICLOFENAC SODIUM 75 MG TBEC Take one by mouth daily as needed DICLOFENAC SODIUM 61267321700 No Longer Active Ramos Myers MD Active SIMVASTATIN 20 MG TABS 1 tab daily at bedtime SIMVASTATIN 98636175497 No Longer Active Ramos Myers MD Active EQL [id number]-[id number]-MNQ 500-400-166 MG TABS Take one by mouth daily [id number] 53666252265 Active Ramos Myers MD Active CALCIUM 1500 MG TAB Take one by mouth daily CALCIUM CARBONATE 62173361498 Active Ramos Myers MD Active B-12 1000 MCG CR-TABS Take one by mouth daily CYANOCOBALAMIN 09934668169 Active Ramos Myers MD Active VITAMIN B-6 100 MG TABS Take one by mouth daily PYRIDOXINE HCL 76646675747 Active Ramos Myers MD Active ASPIRIN 81 MG TAB 1 tablet by mouth daily ASPIRIN 85589954877 Active Ramos Myers MD Active FOLIC ACID 1 MG TABS Take one by mouth daily FOLIC ACID 94148498475 Active Ramos Myers MD Active HYDROCHLOROTHIAZIDE 25 MG TABS 1 tablet by mouth daily HYDROCHLOROTHIAZIDE 68634964748 Active Ramos Myers MD Active METOPROLOL SUCCINATE ER 25 MG [id number] Take one by mouth twice daily METOPROLOL SUCCINATE 06991272141 Active Ramos Myers MD Active SIMVASTATIN 20 MG TABS 1 tab daily at bedtime SIMVASTATIN 20 MG TABS 726815 SIMVASTATIN Inactive DICLOFENAC SODIUM 75 MG TBEC Take one by mouth daily as needed DICLOFENAC SODIUM 75 MG TBEC 970488 DICLOFENAC SODIUM Inactive OMEPRAZOLE 20 MG CPDR 1 tablet by mouth daily, as needed OMEPRAZOLE 20 MG CPDR 949333 OMEPRAZOLE Inactive HYDROXYCHLOROQUINE SULFATE 200 MG TABS by mouth twice a day 12/15 HYDROXYCHLOROQUINE SULFATE 200 MG TABS 582173 HYDROXYCHLOROQUINE SULFATE Inactive PLAVIX 75 MG ORAL TABS 1 tab by mouth daily PLAVIX 75 MG ORAL TABS 123308 CLOPIDOGREL BISULFATE Inactive SIMVASTATIN 20 MG ORAL TABS 1 tab by mouth daily SIMVASTATIN 20 MG ORAL TABS 273290 SIMVASTATIN Inactive AMLODIPINE BESYLATE 10 MG TABS 1 tablet by mouth daily AMLODIPINE BESYLATE 10 MG TABS 258709 AMLODIPINE BESYLATE Inactive TRAMADOL HCL 50 MG TABS Take one by mouth daily as needed TRAMADOL HCL 50 MG TABS 758116 TRAMADOL HCL Inactive CIPRO 500 MG TAB 1 tablet two times daily CIPRO 500 MG TAB 693284 CIPROFLOXACIN HCL Inactive Advance Directives Directive Description Start Date PERMISSION TO SHARE LIVING WILL ON FILE Vital Signs Date Name Value Unit Range Description blood pressure, diastolic 70 mm[Hg] BP desai [...] sys weight E&M 183 [lb_av] Weight Measured Encounters Code Encounter Date Provider Facility CPT-42095 Level 3 Est. Patient 19:01:41 CDT Mukund Rivera MD [facility] CPT-70107 Level 3 Est. Patient 23:28:14 CDT Mukund Rivera MD [facility] CPT-04646 Level 3 Est. Patient 14:56:41 ACCOUNT RESOLUTION EXPERT Mukund Rivera MD [facility] CPT-03817 Level 3 Est. Patient 16:05:06 ACCOUNT RESOLUTION EXPERT Mukund Rivera MD [facility] CPT-39710 Level 3 Est. Patient 14:06:16 ACCOUNT RESOLUTION EXPERT Mukund Rivera MD [facility] CPT-89624 Level 3 New Patient 14:46:52 ACCOUNT RESOLUTION EXPERT Mukund Rivera MD [facility] CPT-21517 Level 2 Est. Patient 14:01:01 CDT Ramos Myers MD [facility] CPT-57745 Level 2 Est. Patient 16:14:11 CDT Ramos Myers MD [facility] CPT-48075 Level 2 Est. Patient 14:39:48 CDT Ramos Myers MD [facility] CPT-80487 Level 3 Est. Patient 10:13:26 ACCOUNT RESOLUTION EXPERT Ramos Myers MD [facility] Procedures Code Procedure Name Date Entry Date Standard Description CPT-47391 Cystoscopy 19:01:42 CDT CPT-39414 Abd single AP View - XRAY USE ONLY 11:35:07 CDT CPT-66076 Postop F/U Visit 10:30:43 CDT CPT-A4357 Overnight urinary bag 10:24:50 CDT CPT-A4340 Indwell urin cath coude 10:24:50 CDT CPT-68449 Insert temp indwelling bld cath comp 10:24:50 CDT 01/14 CPT-A4340 Indwell urin cath coude 15:42:37 CDT CPT-13484 Postop F/U Visit 20:56:46 CDT CPT-88178 Aspiration hydrocele 15:23:51 ACCOUNT RESOLUTION EXPERT CPT-LR Lesion Removal 14:01:01 CDT CPT-LR Lesion Removal 16:14:11 CDT CPT-03058 Postop F/U Visit 15:07:25 ACCOUNT RESOLUTION EXPERT
--- OUTSIDE RECORDS SUMMARY | 2017-10-22 23:58 | XMS REPORT | Clinical Summary ---
Author Author Admin, NUZHAT Organization [facility] Address Unknown Phone Unavailable Allergies, Adverse [...] Coronary atherosclerosis of unspecified type of vessel, [place] or graft HYPERTENSION 401.9 Active SHASTA Rosenberg [...] by mouth daily as needed TRAMADOL HCL 37566014732 No Longer Active Mukund Rivera MD Active AMLODIPINE BESYLATE 10 MG ORAL TABLET 1 tablet by mouth daily AMLODIPINE BESYLATE 84834575387 No Longer Active Mukund Rivera MD Active SIMVASTATIN 20 MG ORAL TABLET 1 tab by mouth daily SIMVASTATIN 90085345790 No Longer Active Mukund Rivera MD Active PLAVIX 75 MG ORAL TABLET 1 tab by mouth daily CLOPIDOGREL BISULFATE 45776297147 No Longer Active Mukund Rivera MD Active HYDROXYCHLOROQUINE SULFATE 200 MG ORAL TABLET by mouth twice a day HYDROXYCHLOROQUINE SULFATE 66887108698 No Longer Active Mukund Rivera MD Active CIPRO 500 MG ORAL TABLET 1 tablet two times daily CIPROFLOXACIN HCL 53931438049 No Longer Active Mukund Rivera MD Active OMEPRAZOLE 20 MG ORAL CAPSULE DELAYED RELEASE 1 tablet by mouth daily, as needed OMEPRAZOLE 62244699077 No Longer Active Mukund Rivera MD Active [facility] ORAL CAPSULE Take one by mouth daily PROBIOTIC PRODUCT 86257275812 Active Ramos Myers MD Active KLOR-CON 10 10 MEQ ORAL TABLET EXTENDED RELEASE Take one by mouth daily 05/31 POTASSIUM CHLORIDE 53107863392 Active Ramos Myers MD Active FUROSEMIDE 20 MG ORAL TABLET 1 tablet by mouth daily FUROSEMIDE 71403983532 Active Ramos Myers MD Active METHOTREXATE 2.5 MG ORAL TABLET 6 tabs once a week METHOTREXATE SODIUM 91874466897 Active Ramos Myers MD Active DICLOFENAC SODIUM 75 MG ORAL TABLET DELAYED RELEASE Take one by mouth daily as needed DICLOFENAC SODIUM 25712098900 No Longer Active Ramos Myers MD Active SIMVASTATIN 20 MG ORAL TABLET 1 tab daily at bedtime SIMVASTATIN 99008595405 No Longer Active Ramos Myers MD Active EQL RMFHYSJEFSB-DOSKEQGRC-RYK 500-400-166 MG ORAL TABLET Take one by mouth daily [id number] 23764796989 Active Ramos Myers MD Active CALCIUM CARBONATE 1500 (600 Ca) MG ORAL TABLET Take one by mouth daily 11/29 CALCIUM CARBONATE 39822747633 Active Ramos Myers MD Active B-12 1000 MCG ORAL TABLET EXTENDED RELEASE Take one by mouth daily CYANOCOBALAMIN 58864961435 Active Ramos Myers MD Active VITAMIN B-6 100 MG ORAL TABLET Take one by mouth daily PYRIDOXINE HCL 38740573508 Active Ramos yMers MD Active ASPIRIN 81 MG ORAL TABLET 1 tablet by mouth daily ASPIRIN 68523656700 Active Ramos Myers MD Active FOLIC ACID 1 MG ORAL TABLET Take one by mouth daily FOLIC ACID 52485935217 Active Ramos Myers MD Active HYDROCHLOROTHIAZIDE 25 MG ORAL TABLET 1 tablet by mouth daily HYDROCHLOROTHIAZIDE 43626540643 Active Ramos Myers MD Active METOPROLOL SUCCINATE ER 25 MG ORAL TABLET EXTENDED RELEASE 24 HOUR Take one by mouth twice daily METOPROLOL SUCCINATE 90727694038 Active Ramos Myers MD Active SIMVASTATIN 20 MG ORAL TABLET 1 tab daily at bedtime SIMVASTATIN 20 MG ORAL TABLET 596950 SIMVASTATIN Inactive DICLOFENAC SODIUM 75 MG ORAL TABLET DELAYED RELEASE Take one by mouth daily as needed DICLOFENAC SODIUM 75 MG ORAL TABLET DELAYED RELEASE 939267 DICLOFENAC SODIUM Inactive OMEPRAZOLE 20 MG ORAL CAPSULE DELAYED RELEASE 1 tablet by mouth daily, as needed OMEPRAZOLE 20 MG ORAL CAPSULE DELAYED RELEASE 811468 OMEPRAZOLE Inactive HYDROXYCHLOROQUINE SULFATE 200 MG ORAL TABLET by mouth twice a day HYDROXYCHLOROQUINE SULFATE 200 MG ORAL TABLET 331552 HYDROXYCHLOROQUINE SULFATE Inactive PLAVIX 75 MG ORAL TABLET 1 tab by mouth daily PLAVIX 75 MG ORAL TABLET 506718 CLOPIDOGREL BISULFATE Inactive SIMVASTATIN 20 MG ORAL TABLET 1 tab by mouth daily SIMVASTATIN 20 MG ORAL TABLET 252131 SIMVASTATIN Inactive AMLODIPINE BESYLATE 10 MG ORAL TABLET 1 tablet by mouth daily AMLODIPINE BESYLATE 10 MG ORAL TABLET 088871 AMLODIPINE BESYLATE Inactive TRAMADOL HCL 50 MG ORAL TABLET Take one by mouth daily as needed TRAMADOL HCL 50 MG ORAL TABLET 946466 TRAMADOL HCL Inactive CIPRO 500 MG ORAL TABLET 1 tablet two times daily CIPRO 500 MG ORAL TABLET 794874 CIPROFLOXACIN HCL Inactive Advance Directives Directive Description [...] negative Encounters Code Encounter Date Provider Facility CPT-58712 Level 3 Est. Patient 10:36:44 SLAB DEPILER OPERATOR Mukund Rivera MD [facility] CPT-67694 Level 3 Est. Patient 19:01:41 CDT Mukund Rivera MD [facility] CPT-65249 Level 3 Est. Patient 23:28:14 CDT Mukund Rivera MD [facility] CPT-91314 Level 3 Est. Patient 14:56:41 SLAB DEPILER OPERATOR Mukund Rivera MD [facility] CPT-20956 Level 3 Est. Patient 16:05:06 SLAB DEPILER OPERATOR Mukund Rivera MD [facility] CPT-72360 Level 3 Est. Patient 14:06:16 SLAB DEPILER OPERATOR Mukund Rivera MD [facility] CPT-84978 Level 3 New Patient 14:46:52 SLAB DEPILER OPERATOR Mukund Rivera MD [facility] CPT-61842 Level 2 Est. Patient 14:01:01 CDT Ramos Myers MD [facility] CPT-26691 Level 2 Est. Patient 16:14:11 CDT Ramos Myers MD [facility] CPT-04027 Level 2 Est. Patient 14:39:48 CDT Ramos Myers MD [facility] CPT-29086 Level 3 Est. Patient 10:13:26 SLAB DEPILER OPERATOR Ramos Myers MD [facility] Procedures Code Procedure Name Date Entry Date Standard Description CPT-48612 Abd single AP View - XRAY USE ONLY 09:40:50 SLAB DEPILER OPERATOR CPT-85740 Postop F/U Visit 10:44:37 CDT CPT-21518 Abd single AP View - XRAY USE ONLY 09:47:35 CDT CPT-12879 Cystoscopy 19:01:42 CDT CPT-21469 Abd single AP View - XRAY USE ONLY 11:35:07 CDT CPT-07981 Postop F/U Visit 10:30:43 CDT CPT-A4357 Overnight urinary bag 10:24:50 CDT CPT-A4340 Indwell urin cath coude 10:24:50 CDT CPT-00699 Insert temp indwelling bld cath comp 10:24:50 CDT 01/14 CPT-A4340 Indwell urin cath coude 15:42:37 CDT CPT-32210 Postop F/U Visit 20:56:46 CDT CPT-59371 Aspiration hydrocele 15:23:51 SLAB DEPILER OPERATOR CPT-LR Lesion Removal 14:01:01 CDT CPT-LR Lesion Removal 16:14:11 CDT CPT-96712 Postop F/U Visit 15:07:25 SLAB DEPILER OPERATOR
--- OUTSIDE RECORDS SUMMARY | 2017-10-22 23:59 | XMS REPORT | Clinical Summary ---
Author Author Admin, NUZHAT Organization [facility] Address Unknown Phone Unavailable Allergies, Adverse [...] Coronary atherosclerosis of unspecified type of vessel, [place] or graft HYPERTENSION 401.9 Active SHASTA Rosenberg [...] OPEN WOUND&W/O MENTION INF 915.6 Active Ramos Myres MD Superficial foreign body (splinter) of fingers [...] Mukund Rivera MD Retention of urine, unspecified Medication List Medication Instructions Start Date Stop Date Generic Name NDC Status Provider Patient Instruction HYDROXYCHLOROQUINE SULFATE 200 MG TABS by mouth twice a day 12/15 HYDROXYCHLOROQUINE SULFATE 41074102800 No Longer Active Mukund Rivera MD Active CIPRO 500 MG TAB 1 tablet two times daily CIPROFLOXACIN HCL 16443278464 No Longer Active Mukund Rivera MD Active PLAVIX 75 MG ORAL TABS 1 tab by mouth daily CLOPIDOGREL BISULFATE 18872501063 Active Mukund Rivera MD Active SIMVASTATIN 20 MG ORAL TABS 1 tab by mouth daily SIMVASTATIN 76738750669 Active Mukund Rivera MD Active OMEPRAZOLE 20 MG CPDR 1 tablet by mouth daily, as needed OMEPRAZOLE 01264251799 No Longer Active Mukund Rivera MD Active [employer] [facility] CAP[employer] Take one by mouth daily PROBIOTIC PRODUCT 62502139611 Active Ramos Myers MD Active KLOR-CON 10 10 MEQ CR-TABS Take one by mouth daily POTASSIUM CHLORIDE 35866314071 Active Ramos Myers MD Active FUROSEMIDE 20 MG TAB 1 tablet by mouth daily FUROSEMIDE 07250661559 Active Ramos Myers MD Active METHOTREXATE 2.5 MG TABS 6 tabs once a week METHOTREXATE SODIUM 03343648062 Active Ramos Myers MD Active DICLOFENAC SODIUM 75 MG TBEC Take one by mouth daily as needed DICLOFENAC SODIUM 99310658846 No Longer Active Ramos Myers MD Active SIMVASTATIN 20 MG TABS 1 tab daily at bedtime SIMVASTATIN 19810258836 No Longer Active Ramos Myers MD Active AMLODIPINE BESYLATE 10 MG TABS 1 tablet by mouth daily AMLODIPINE BESYLATE 00747798307 Active Ramos Myers MD Active EQL RMBZVSQAHFQ-CKJXAGSOF-JIC 500-400-166 MG TABS Take one by mouth daily [id number] 92130832544 Active Ramos Myers MD Active CALCIUM 1500 MG TAB Take one by mouth daily CALCIUM CARBONATE 81193692902 Active Ramos Myers MD Active B-12 1000 MCG CR-TABS Take one by mouth daily CYANOCOBALAMIN 30122590315 Active Ramos Myers MD Active VITAMIN B-6 100 MG TABS Take one by mouth daily PYRIDOXINE HCL 92620791760 Active Ramos Myers MD Active ASPIRIN 81 MG TAB 1 tablet by mouth daily ASPIRIN 48096068840 Active Ramos Myers MD Active TRAMADOL HCL 50 MG TABS Take one by mouth daily as needed TRAMADOL HCL 25192403439 Active Ramos Myers MD Active FOLIC ACID 1 MG TABS Take one by mouth daily FOLIC ACID 87667641078 Active Ramos Myers MD Active HYDROCHLOROTHIAZIDE 25 MG TABS 1 tablet by mouth daily HYDROCHLOROTHIAZIDE 28005197466 Active Ramos Myers MD Active METOPROLOL SUCCINATE ER 25 MG [id number] Take one by mouth twice daily METOPROLOL SUCCINATE 27685633210 Active Ramos Myers MD Active SIMVASTATIN 20 MG TABS 1 tab daily at bedtime SIMVASTATIN 20 MG TABS 961451 SIMVASTATIN Inactive DICLOFENAC SODIUM 75 MG TBEC Take one by mouth daily as needed DICLOFENAC SODIUM 75 MG TBEC 726082 DICLOFENAC SODIUM Inactive OMEPRAZOLE 20 MG CPDR 1 tablet by mouth daily, as needed OMEPRAZOLE 20 MG CPDR 021324 OMEPRAZOLE Inactive HYDROXYCHLOROQUINE SULFATE 200 MG TABS by mouth twice a day 12/15 HYDROXYCHLOROQUINE SULFATE 200 MG TABS 910769 HYDROXYCHLOROQUINE SULFATE Inactive CIPRO 500 MG TAB 1 tablet two times daily CIPRO 500 MG TAB 642444 CIPROFLOXACIN HCL Inactive Advance Directives Directive Description [...] E&M - 3141-9 181 [lb_av] Weight Measured Encounters Code Encounter Date Provider Facility CPT-49372 Level 3 Est. Patient 14:56:41 FOOD AND BEVERAGE LEAD Mukund Rivera MD [facility] CPT-39616 Level 3 Est. Patient 16:05:06 FOOD AND BEVERAGE LEAD Mukund Rivera MD [facility] CPT-85578 Level 3 Est. Patient 14:06:16 FOOD AND BEVERAGE LEAD Mukund Rivera MD [facility] CPT-99738 Level 3 New Patient 14:46:52 FOOD AND BEVERAGE LEAD Mukund Rivera MD [facility] CPT-42092 Level 2 Est. Patient 14:01:01 CDT Ramos Myers MD [facility] CPT-99971 Level 2 Est. Patient 16:14:11 CDT Ramos Myers MD [facility] CPT-31121 Level 2 Est. Patient 14:39:48 CDT Ramos Myers MD [facility] CPT-94752 Level 3 Est. Patient 10:13:26 FOOD AND BEVERAGE LEAD Ramos Myers MD [facility] Procedures Code Procedure Name Date Entry Date Standard Description CPT-A4340 Indwell urin cath coude 15:42:37 CDT CPT-72166 Postop F/U Visit 20:56:46 CDT CPT-65193 Aspiration hydrocele 15:23:51 FOOD AND BEVERAGE LEAD CPT-LR Lesion Removal 14:01:01 CDT CPT-LR Lesion Removal 16:14:11 CDT CPT-37569 Postop F/U Visit 15:07:25 FOOD AND BEVERAGE LEAD
--- OUTSIDE RECORDS SUMMARY | 2017-10-22 23:59 | XMS REPORT | Clinical Summary ---
Author Author Admin, E Organization [facility] Address [...] Coronary atherosclerosis of unspecified type of vessel, [place] or graft HYPERTENSION 401.9 Active SHASTA Rosenberg [...] by mouth daily as needed TRAMADOL HCL 66159764127 No Longer Active Mukund Rivera MD Active AMLODIPINE BESYLATE 10 MG TABS 1 tablet by mouth daily AMLODIPINE BESYLATE 96918903292 No Longer Active Mukund Rivera MD Active SIMVASTATIN 20 MG ORAL TABS 1 tab by mouth daily SIMVASTATIN 65491502577 No Longer Active Mukund Rivera MD Active PLAVIX 75 MG ORAL TABS 1 tab by mouth daily CLOPIDOGREL BISULFATE 86712455660 No Longer Active Mukund Rivera MD Active HYDROXYCHLOROQUINE SULFATE 200 MG TABS by mouth twice a day 12/15 HYDROXYCHLOROQUINE SULFATE 66823127460 No Longer Active Mukund Rivera MD Active CIPRO 500 MG TAB 1 tablet two times daily CIPROFLOXACIN HCL 91527872326 No Longer Active Mukund Rivera MD Active OMEPRAZOLE 20 MG CPDR 1 tablet by mouth daily, as needed OMEPRAZOLE 34902173536 No Longer Active Mukund Rivera MD Active [employer] [facility] CAPS Take one by mouth daily PROBIOTIC PRODUCT 33595073879 Active Ramos Myers MD Active KLOR-CON 10 10 MEQ CR-TABS Take one by mouth daily POTASSIUM CHLORIDE 80689245729 Active Ramos Myers MD Active FUROSEMIDE 20 MG TAB 1 tablet by mouth daily FUROSEMIDE 87295469684 Active Ramos Myers MD Active METHOTREXATE 2.5 MG TABS 6 tabs once a week METHOTREXATE SODIUM 81981806469 Active Ramos Myers MD Active DICLOFENAC SODIUM 75 MG TBEC Take one by mouth daily as needed DICLOFENAC SODIUM 08785566785 No Longer Active Ramos Myers MD Active SIMVASTATIN 20 MG TABS 1 tab daily at bedtime SIMVASTATIN 09484546635 No Longer Active Ramos Myers MD Active EQL ONJOOAZHZRA-SHSORSDMX-GKP 500-400-166 MG TABS Take one by mouth daily [id number]-VJQ 06246511916 Active Ramos Myers MD Active CALCIUM 1500 MG TAB Take one by mouth daily CALCIUM CARBONATE 16178686127 Active Ramos Myers MD Active B-12 1000 MCG CR-TABS Take one by mouth daily CYANOCOBALAMIN 54525908493 Active Ramos Myers MD Active VITAMIN B-6 100 MG TABS Take one by mouth daily PYRIDOXINE HCL 15836006365 Active Ramos Myers MD Active ASPIRIN 81 MG TAB 1 tablet by mouth daily ASPIRIN 26909678685 Active Ramos Myers MD Active FOLIC ACID 1 MG TABS Take one by mouth daily FOLIC ACID 40758555177 Active Ramos Myers MD Active HYDROCHLOROTHIAZIDE 25 MG TABS 1 tablet by mouth daily HYDROCHLOROTHIAZIDE 98386033663 Active Ramos Myers MD Active METOPROLOL SUCCINATE ER 25 MG DO15Y-LIV Take one by mouth twice daily METOPROLOL SUCCINATE 17524273479 Active Ramos Myers MD Active SIMVASTATIN 20 MG TABS 1 tab daily at bedtime SIMVASTATIN 20 MG TABS 369158 SIMVASTATIN Inactive DICLOFENAC SODIUM 75 MG TBEC Take one by mouth daily as needed DICLOFENAC SODIUM 75 MG TBEC 550610 DICLOFENAC SODIUM Inactive OMEPRAZOLE 20 MG CPDR 1 tablet by mouth daily, as needed OMEPRAZOLE 20 MG CPDR 739163 OMEPRAZOLE Inactive HYDROXYCHLOROQUINE SULFATE 200 MG TABS by mouth twice a day 12/15 HYDROXYCHLOROQUINE SULFATE 200 MG TABS 403322 HYDROXYCHLOROQUINE SULFATE Inactive PLAVIX 75 MG ORAL TABS 1 tab by mouth daily PLAVIX 75 MG ORAL TABS 385412 CLOPIDOGREL BISULFATE Inactive SIMVASTATIN 20 MG ORAL TABS 1 tab by mouth daily SIMVASTATIN 20 MG ORAL TABS 489807 SIMVASTATIN Inactive AMLODIPINE BESYLATE 10 MG TABS 1 tablet by mouth daily AMLODIPINE BESYLATE 10 MG TABS 024149 AMLODIPINE BESYLATE Inactive TRAMADOL HCL 50 MG TABS Take one by mouth daily as needed TRAMADOL HCL 50 MG TABS 259259 TRAMADOL HCL Inactive CIPRO 500 MG TAB 1 tablet two times daily CIPRO 500 MG TAB 252284 CIPROFLOXACIN HCL Inactive Advance Directives Directive Description [...] Measured Encounters Code Encounter Date Provider Facility CPT-41360 Level 3 Est. Patient 23:28:14 CDT Mukund Rivera MD [facility] CPT-14273 Level 3 Est. Patient 14:56:41 SEAMER Mukund Rivera MD [facility] CPT-15635 Level 3 Est. Patient 16:05:06 SEAMER Mukund Rivera MD [facility] CPT-17533 Level 3 Est. Patient 14:06:16 SEAMER Mukund Rivera MD [facility] CPT-70013 Level 3 New Patient 14:46:52 SEAMER Mukund Rivera MD [facility] CPT-62984 Level 2 Est. Patient 14:01:01 CDT Ramos Myers MD [facility]-98422 Level 2 Est. Patient 16:14:11 CDT Ramos Myers MD [facility] CPT-82017 Level 2 Est. Patient 14:39:48 CDT Ramos Myers MD [facility] CPT-54716 Level 3 Est. Patient 10:13:26 SEAMER Ramos Myers MD [facility] Procedures Code Procedure Name Date Entry Date Standard Description CPT-36158 Postop F/U Visit 10:30:43 CDT CPT-A4357 Overnight urinary bag 10:24:50 CDT CPT-A4340 Indwell urin cath coude 10:24:50 CDT CPT-13835 Insert temp indwelling bld cath comp 10:24:50 CDT 01/14 CPT-A4340 Indwell urin cath coude 15:42:37 CDT CPT-53844 Postop F/U Visit 20:56:46 CDT CPT-55887 Aspiration hydrocele 15:23:51 SEAMER CPT-LR Lesion Removal 14:01:01 CDT CPT-LR Lesion Removal 16:14:11 CDT CPT-37497 Postop F/U Visit 15:07:25 SEAMER
--- OUTSIDE RECORDS SUMMARY | 2017-10-22 23:59 | XMS REPORT | Clinical Summary ---
Author Author Admin, E Organization [facility] Address Unknown Phone Unavailable Allergies, Adverse [...] Coronary atherosclerosis of unspecified type of vessel, grindstone or graft HYPERTENSION 401.9 Active SHASTA Rosenberg [...] mouth twice a day 12/15 HYDROXYCHLOROQUINE SULFATE 17121719807 No Longer Active Mukund Rivera MD Active CIPRO 500 MG TAB 1 tablet two times daily CIPROFLOXACIN HCL 32945405980 No Longer Active Mukund Rivera MD Active PLAVIX 75 MG ORAL TABS 1 tab by mouth daily CLOPIDOGREL BISULFATE 20300126336 Active Mukund Rivera MD Active SIMVASTATIN 20 MG ORAL TABS 1 tab by mouth daily SIMVASTATIN 23781581549 Active Mukund Rivera MD Active OMEPRAZOLE 20 MG CPDR 1 tablet by mouth daily, as needed OMEPRAZOLE 92846765037 No Longer Active Mukund Rivera MD Active [employer] CAP[employer] Take one by mouth daily PROBIOTIC PRODUCT 48449593115 Active Ramos Myers MD Active KLOR-CON 10 10 MEQ CR-TABS Take one by mouth daily POTASSIUM CHLORIDE 09752739248 Active Ramos Myers MD Active FUROSEMIDE 20 MG TAB 1 tablet by mouth daily FUROSEMIDE 95632905498 Active Ramos Myers MD Active METHOTREXATE 2.5 MG TABS 6 tabs once a week METHOTREXATE SODIUM 83315989060 Active Ramos Myers MD Active DICLOFENAC SODIUM 75 MG TBEC Take one by mouth daily as needed DICLOFENAC SODIUM 55618297062 No Longer Active Ramos Myers MD Active SIMVASTATIN 20 MG TABS 1 tab daily at bedtime SIMVASTATIN 12562942375 No Longer Active Ramos Myers MD Active AMLODIPINE BESYLATE 10 MG TABS 1 tablet by mouth daily AMLODIPINE BESYLATE 15211737977 Active Ramos Myers MD Active EQL [id number]-[id number]-XGI 500-400-166 MG TABS Take one by mouth daily QRFVHTWOUUH-HUYGQNFHSVO-MNX 47067176028 Active Ramos Myers MD Active CALCIUM 1500 MG TAB Take one by mouth daily CALCIUM CARBONATE 86479266586 Active Ramos Myers MD Active B-12 1000 MCG CR-TABS Take one by mouth daily CYANOCOBALAMIN 36132342806 Active Ramos Myers MD Active VITAMIN B-6 100 MG TABS Take one by mouth daily PYRIDOXINE HCL 54245903649 Active Ramos Myers MD Active ASPIRIN 81 MG TAB 1 tablet by mouth daily ASPIRIN 25598671838 Active Ramos Myers MD Active TRAMADOL HCL 50 MG TABS Take one by mouth daily as needed TRAMADOL HCL 13518351127 Active Ramos Myers MD Active FOLIC ACID 1 MG TABS Take one by mouth daily FOLIC ACID 27441906700 Active Ramos Myers MD Active HYDROCHLOROTHIAZIDE 25 MG TABS 1 tablet by mouth daily HYDROCHLOROTHIAZIDE 31664941732 Active Ramos Myers MD Active METOPROLOL SUCCINATE ER 25 MG [id number] Take one by mouth twice daily METOPROLOL SUCCINATE 86652029845 Active Ramos Myers MD Active SIMVASTATIN 20 MG TABS 1 tab daily at bedtime SIMVASTATIN 20 MG TABS 206699 SIMVASTATIN Inactive DICLOFENAC SODIUM 75 MG TBEC Take one by mouth daily as needed DICLOFENAC SODIUM 75 MG TBEC 220817 DICLOFENAC SODIUM Inactive OMEPRAZOLE 20 MG CPDR 1 tablet by mouth daily, as needed OMEPRAZOLE 20 MG CPDR 962441 OMEPRAZOLE Inactive HYDROXYCHLOROQUINE SULFATE 200 MG TABS by mouth twice a day 12/15 HYDROXYCHLOROQUINE SULFATE 200 MG TABS 007288 HYDROXYCHLOROQUINE SULFATE Inactive CIPRO 500 MG TAB 1 tablet two times daily CIPRO 500 MG TAB 817230 CIPROFLOXACIN HCL Inactive Advance Directives Directive Description [...] Measured Encounters Code Encounter Date Provider Facility CPT-59106 Level 3 Est. Patient 14:56:41 COMBINATION MACHINE TENDER Mukund Rivera MD [facility] CPT-18353 Level 3 Est. Patient 16:05:06 COMBINATION MACHINE TENDER Mukund Rivera MD [facility] CPT-86115 Level 3 Est. Patient 14:06:16 COMBINATION MACHINE TENDER Mukund Rivera MD [facility] CPT-90868 Level 3 New Patient 14:46:52 COMBINATION MACHINE TENDER Mukund Rivera MD [facility] CPT-02408 Level 2 Est. Patient 14:01:01 CDT Ramos Myers MD [facility] CPT-04380 Level 2 Est. Patient 16:14:11 CDT Ramos Myers MD [facility] CPT-68324 Level 2 Est. Patient 14:39:48 CDT Ramos Myers MD [facility] CPT-52070 Level 3 Est. Patient 10:13:26 COMBINATION MACHINE TENDER Ramos Myers MD [facility] Procedures Code Procedure Name Date Entry Date Standard Description CPT-A4340 Indwell urin cath coude 15:42:37 CDT CPT-24966 Postop F/U Visit 20:56:46 CDT CPT-89959 Aspiration hydrocele 15:23:51 COMBINATION MACHINE TENDER CPT-LR Lesion Removal 14:01:01 CDT CPT-LR Lesion Removal 16:14:11 CDT CPT-89906 Postop F/U Visit 15:07:25 COMBINATION MACHINE TENDER
--- OUTSIDE RECORDS SUMMARY | 2017-10-23 | XMS REPORT | Clinical Summary ---
[...] Coronary atherosclerosis of unspecified type of vessel, [place] or graft HYPERTENSION 401.9 Active SHASTA Rosenberg [...] by mouth daily as needed TRAMADOL HCL 31588293012 No Longer Active Mukund Rivera MD Active AMLODIPINE BESYLATE 10 MG TABS 1 tablet by mouth daily AMLODIPINE BESYLATE 02607715785 No Longer Active Mukund Rivera MD Active SIMVASTATIN 20 MG ORAL TABS 1 tab by mouth daily SIMVASTATIN 98895327675 No Longer Active Mukund Rivera MD Active PLAVIX 75 MG ORAL TABS 1 tab by mouth daily CLOPIDOGREL BISULFATE 90810620951 No Longer Active Mukund Rivera MD Active HYDROXYCHLOROQUINE SULFATE 200 MG TABS by mouth twice a day 12/15 HYDROXYCHLOROQUINE SULFATE 78338597369 No Longer Active Mukund Rivera MD Active CIPRO 500 MG TAB 1 tablet two times daily CIPROFLOXACIN HCL 96041737368 No Longer Active Mukund Rivera MD Active OMEPRAZOLE 20 MG CPDR 1 tablet by mouth daily, as needed OMEPRAZOLE 35558417374 No Longer Active J Cholo Rivera MD Active [employer] Take one by mouth daily PROBIOTIC PRODUCT 00847589495 Active Ramos Myers MD Active KLOR-CON 10 10 MEQ CR-TABS Take one by mouth daily POTASSIUM CHLORIDE 09246232440 Active Ramos Myers MD Active FUROSEMIDE 20 MG TAB 1 tablet by mouth daily FUROSEMIDE 13255677075 Active Ramos Myers MD Active METHOTREXATE 2.5 MG TABS 6 tabs once a week METHOTREXATE SODIUM 58993987008 Active Ramos Myers MD Active DICLOFENAC SODIUM 75 MG TBEC Take one by mouth daily as needed DICLOFENAC SODIUM 86696922987 No Longer Active Ramos Myers MD Active SIMVASTATIN 20 MG TABS 1 tab daily at bedtime SIMVASTATIN 34374182482 No Longer Active Ramos Myers MD Active EQL GWIRVURGSVS-VWFCYRAMI-XKT 500-400-166 MG TABS Take one by mouth daily [id number]-[id number]-SWN 89384100921 Active Ramos Myers MD Active CALCIUM 1500 MG TAB Take one by mouth daily CALCIUM CARBONATE 18283699156 Active Ramos Myers MD Active B-12 1000 MCG CR-TABS Take one by mouth daily CYANOCOBALAMIN 89390103085 Active Ramos Myers MD Active VITAMIN B-6 100 MG TABS Take one by mouth daily PYRIDOXINE HCL 95439346779 Active Ramos Myers MD Active ASPIRIN 81 MG TAB 1 tablet by mouth daily ASPIRIN 20443789039 Active Ramos Myers MD Active FOLIC ACID 1 MG TABS Take one by mouth daily FOLIC ACID 21717553886 Active Ramos Myers MD Active HYDROCHLOROTHIAZIDE 25 MG TABS 1 tablet by mouth daily HYDROCHLOROTHIAZIDE 05319329809 Active Ramos Myers MD Active METOPROLOL SUCCINATE ER 25 MG [id number] Take one by mouth twice daily METOPROLOL SUCCINATE 86983648691 Active Ramos Myers MD Active SIMVASTATIN 20 MG TABS 1 tab daily at bedtime SIMVASTATIN 20 MG TABS 986892 SIMVASTATIN Inactive DICLOFENAC SODIUM 75 MG TBEC Take one by mouth daily as needed DICLOFENAC SODIUM 75 MG TBEC 894278 DICLOFENAC SODIUM Inactive OMEPRAZOLE 20 MG CPDR 1 tablet by mouth daily, as needed OMEPRAZOLE 20 MG CPDR 400788 OMEPRAZOLE Inactive HYDROXYCHLOROQUINE SULFATE 200 MG TABS by mouth twice a day 12/15 HYDROXYCHLOROQUINE SULFATE 200 MG TABS 495542 HYDROXYCHLOROQUINE SULFATE Inactive PLAVIX 75 MG ORAL TABS 1 tab by mouth daily PLAVIX 75 MG ORAL TABS 763931 CLOPIDOGREL BISULFATE Inactive SIMVASTATIN 20 MG ORAL TABS 1 tab by mouth daily SIMVASTATIN 20 MG ORAL TABS 537622 SIMVASTATIN Inactive AMLODIPINE BESYLATE 10 MG TABS 1 tablet by mouth daily AMLODIPINE BESYLATE 10 MG TABS 444993 AMLODIPINE BESYLATE Inactive TRAMADOL HCL 50 MG TABS Take one by mouth daily as needed TRAMADOL HCL 50 MG TABS 850033 TRAMADOL HCL Inactive CIPRO 500 MG TAB 1 tablet two times daily CIPRO 500 MG TAB 027227 CIPROFLOXACIN HCL Inactive Advance Directives Directive Description [...] negative Encounters Code Encounter Date Provider Facility CPT-87277 Level 3 Est. Patient 19:01:41 CDT Mukund Rivera MD [facility] CPT-95006 Level 3 Est. Patient 23:28:14 CDT Mukund Rivera MD [facility] CPT-25383 Level 3 Est. Patient 14:56:41 RELAY ASSEMBLER Mukund Rivera MD [facility] CPT-44743 Level 3 Est. Patient 16:05:06 RELAY ASSEMBLER Mukund Rivera MD [facility] CPT-47951 Level 3 Est. Patient 14:06:16 RELAY ASSEMBLER Mukund Rivera MD [facility] CPT-04261 Level 3 New Patient 14:46:52 RELAY ASSEMBLER Mukund Rivera MD [facility] CPT-04625 Level 2 Est. Patient 14:01:01 CDT Ramos Myers MD [facility] CPT-83215 Level 2 Est. Patient 16:14:11 CDT Ramos Myers MD [facility] CPT-28549 Level 2 Est. Patient 14:39:48 CDT Ramos Myers MD [facility] CPT-35473 Level 3 Est. Patient 10:13:26 RELAY ASSEMBLER Ramos Myers MD [facility] Procedures Code Procedure Name Date Entry Date Standard Description CPT-80976 Postop F/U Visit 10:44:37 CDT CPT-24207 Abd single AP View - XRAY USE ONLY 09:47:35 CDT CPT-37439 Cystoscopy 19:01:42 CDT CPT-21069 Abd single AP View - XRAY USE ONLY 11:35:07 CDT CPT-28350 Postop F/U Visit 10:30:43 CDT CPT-A4357 Overnight urinary bag 10:24:50 CDT CPT-A4340 Indwell urin cath coude 10:24:50 CDT CPT-01581 Insert temp indwelling bld cath comp 10:24:50 CDT 01/14 CPT-A4340 Indwell urin cath coude 15:42:37 CDT CPT-99861 Postop F/U Visit 20:56:46 CDT CPT-12291 Aspiration hydrocele 15:23:51 RELAY ASSEMBLER CPT-LR Lesion Removal 14:01:01 CDT CPT-LR Lesion Removal 16:14:11 CDT CPT-09220 Postop F/U Visit 15:07:25 RELAY ASSEMBLER
--- OUTSIDE RECORDS SUMMARY | 2017-10-23 | XMS REPORT ---
Author Author [facility] Medical Staff Organization [facility] Address [address] [place] [id number] Phone [phone] Summary purpose TRANSITION OF CARE AUTO GENERATION [...] diagnostic tests and/or laboratory data RESULTS Chemistry [id number] Result Normal Range Units Sodium 142 134-145 [...] mL/min/1.7 C-Reactive Protein <=0.2 0-1 mg/dl Hematology [id number]:00 Result Normal Range Units WBC 8.4 4.8-10.8 103/uL RBC 4.8 4.7-6.1 106/uL HGB 15.1 13.0-18.0 g/dl HCT 45.0 41.9-52.0 % MCV 93.9 80-94 FL MCH H 31.5 27-31 pg MCHC 33.6 33-37 g/dl RDW 14.0 11.5-15.5 % PLT 188 130-400 103/uL MPV 10.0 7.3-10.4 FL Neutro % H 71.1 40-70 % Lymph % L 15.1 20-40 % [place] % 9.7 0-10.0 % Eos % 3.1 0-7.0 % Baso % 0.6 0-2 % Neutro # 5.9 1.5-7.5 103/uL Lymph # 1.3 0.9-4.0 103/uL [place] # 0.8 0-0.8 103/uL Eos # 0.3 0-0.6 103/uL Baso # 0.1 0-0.1 103/uL Hematology - Other (Misc) [id number] Result Normal Range Units Sed Rate 3 0-20 Radiology Results [id number] Result Normal Range Units MPV 10.0 7.3-10.4 FL History of procedures Procedure Code Code Type Description Date Performed Performing Physician 91867 CPT-4 C-REACTIVE PROTEIN 08-27-2015 [facility] BENAVID[facility] 46665 CPT-4 COMPLETE CBC W/AUTO DIFF WBC 08-27-2015 [facility] 03424 CPT-4 COMPREHEN METABOLIC PANEL 08-27-2015 [facility] 28800 CPT-4 RBC SED RATE NONAUTOMATED 08-27-2015 [facility] Functional status No functional or cognitive status [...]
--- OUTSIDE RECORDS SUMMARY | 2017-10-23 00:01 | XMS REPORT | Clinical Summary ---
Author Author Admin, E Organization [facility] Address Unknown Phone Unavailable Allergies, Adverse Reactions, Alerts Allergy Name Reaction Description Start Date Severity Status Provider NEOSPORIN Critical Active SHASTA Rosebnerg TETRACYCLINE Critical Active SHASTA Rosenberg BACTRIM Critical Active SHASTA Rosenberg HYZAAR Critical Active SHASTA Rosenberg Conditions or Problems Problem Name Problem Code Onset Date Status Entry Date Provider Comment Standard Description Annotate CORONARY HEART DISEASE 414.00 Active SHSATA Rosenberg Coronary atherosclerosis of unspecified type of vessel, [place] or graft HYPERTENSION 401.9 Active SHASTA Rosenberg Unspecified essential hypertension RHEUMATOID ARTHRITIS 714.0 Active SHASTA Rosenberg Rheumatoid arthritis FH STROKE V17.1 Active SHASTA Rosenberg Family history of stroke (cerebrovascular) OSTEOARTHRITIS 715.90 Active Ramos Myers MD Osteoarthrosis, unspecified whether generalized or localized, involving unspecified site CHOLELITHIASIS 574.20 Active Ramos Meyrs MD Calculus of gallbladder without mention of [...] by mouth daily as needed TRAMADOL HCL 66081609425 No Longer Active Mukund Rivera MD Active AMLODIPINE BESYLATE 10 MG TABS 1 tablet by mouth daily AMLODIPINE BESYLATE 71907424266 No Longer Active Mukund Rivera MD Active SIMVASTATIN 20 MG ORAL TABS 1 tab by mouth daily SIMVASTATIN 32517120256 No Longer Active Mukund Rivera MD Active PLAVIX 75 MG ORAL TABS 1 tab by mouth daily CLOPIDOGREL BISULFATE 93460366532 No Longer Active Mukund Rivera MD Active HYDROXYCHLOROQUINE SULFATE 200 MG TABS by mouth twice a day 12/15 HYDROXYCHLOROQUINE SULFATE 27957342835 No Longer Active Mukund Rivera MD Active CIPRO 500 MG TAB 1 tablet two times daily CIPROFLOXACIN HCL 11945818947 No Longer Active Mukund Rivera MD Active OMEPRAZOLE 20 MG CPDR 1 tablet by mouth daily, as needed OMEPRAZOLE 84067421827 No Longer Active Mukund Rivera MD Active [employer] Take one by mouth daily PROBIOTIC PRODUCT 43344311510 Active Ramos Myers MD Active KLOR-CON 10 10 MEQ CR-TABS Take one by mouth daily POTASSIUM CHLORIDE 88404556491 Active Ramos Myers MD Active FUROSEMIDE 20 MG TAB 1 tablet by mouth daily FUROSEMIDE 44574727480 Active Ramos Myers MD Active METHOTREXATE 2.5 MG TABS 6 tabs once a week METHOTREXATE SODIUM 45330973588 Active Ramos Myers MD Active DICLOFENAC SODIUM 75 MG TBEC Take one by mouth daily as needed DICLOFENAC SODIUM 34722919034 No Longer Active Ramos Myers MD Active SIMVASTATIN 20 MG TABS 1 tab daily at bedtime SIMVASTATIN 50394360960 No Longer Active Ramos Myers MD Active EQL EOZONXZTHFI-KTGROSTDT-XEZ 500-400-166 MG TABS Take one by mouth daily ZNAKFNFOIAU-[id number]-BAX 80162502950 Active Ramos Myers MD Active CALCIUM 1500 MG TAB Take one by mouth daily CALCIUM CARBONATE 22657248164 Active Ramos Myers MD Active B-12 1000 MCG CR-TABS Take one by mouth daily CYANOCOBALAMIN 09374464025 Active Ramos Myers MD Active VITAMIN B-6 100 MG TABS Take one by mouth daily PYRIDOXINE HCL 71014794326 Active Ramos Myers MD Active ASPIRIN 81 MG TAB 1 tablet by mouth daily ASPIRIN 64084331945 Active Ramos Myers MD Active FOLIC ACID 1 MG TABS Take one by mouth daily FOLIC ACID 72998857508 Active Ramos Myers MD Active HYDROCHLOROTHIAZIDE 25 MG TABS 1 tablet by mouth daily HYDROCHLOROTHIAZIDE 45916256896 Active Ramos Myers MD Active METOPROLOL SUCCINATE ER 25 MG [id number]-COQ Take one by mouth twice daily METOPROLOL SUCCINATE 28016315465 Active Ramos Myers MD Active SIMVASTATIN 20 MG TABS 1 tab daily at bedtime SIMVASTATIN 20 MG TABS 426465 SIMVASTATIN Inactive DICLOFENAC SODIUM 75 MG TBEC Take one by mouth daily as needed DICLOFENAC SODIUM 75 MG TBEC 368289 DICLOFENAC SODIUM Inactive OMEPRAZOLE 20 MG CPDR 1 tablet by mouth daily, as needed OMEPRAZOLE 20 MG CPDR 307587 OMEPRAZOLE Inactive HYDROXYCHLOROQUINE SULFATE 200 MG TABS by mouth twice a day 12/15 HYDROXYCHLOROQUINE SULFATE 200 MG TABS 761384 HYDROXYCHLOROQUINE SULFATE Inactive PLAVIX 75 MG ORAL TABS 1 tab by mouth daily PLAVIX 75 MG ORAL TABS 608113 CLOPIDOGREL BISULFATE Inactive SIMVASTATIN 20 MG ORAL TABS 1 tab by mouth daily SIMVASTATIN 20 MG ORAL TABS 725839 SIMVASTATIN Inactive AMLODIPINE BESYLATE 10 MG TABS 1 tablet by mouth daily AMLODIPINE BESYLATE 10 MG TABS 567174 AMLODIPINE BESYLATE Inactive TRAMADOL HCL 50 MG TABS Take one by mouth daily as needed TRAMADOL HCL 50 MG TABS 261510 TRAMADOL HCL Inactive CIPRO 500 MG TAB 1 tablet two times daily CIPRO 500 MG TAB 868312 CIPROFLOXACIN HCL Inactive Advance Directives Directive Description Start Date PERMISSION TO SHARE LIVING WILL ON FILE Vital Signs Date Name Value Unit Range Description blood pressure, diastolic 70 mm[Hg] BP desai blood pressure, systolic 125 mm[Hg] BP sys pulse rate E&M 70 /min Heart rate temperature E&M 98.4 [degF] Body temperature weight E&M 181 [lb_av] Weight Measured blood pressure, diastolic 72 mm[Hg] BP deasi blood pressure, systolic 120 mm[Hg] BP sys [...] Measured Encounters Code Encounter Date Provider Facility CPT-18943 Level 3 Est. Patient 23:28:14 CDT Mukund Rivera MD [facility] CPT-41190 Level 3 Est. Patient 14:56:41 GRANULIZING MACHINE OPERATOR Mukund Rivera MD [facility] CPT-88095 Level 3 Est. Patient 16:05:06 GRANULIZING MACHINE OPERATOR Mukund Rivera MD [facility] CPT-53158 Level 3 Est. Patient 14:06:16 GRANULIZING MACHINE OPERATOR Mukund Rivera MD [facility] CPT-04336 Level 3 New Patient 14:46:52 GRANULIZING MACHINE OPERATOR Mukund Rivera MD [facility] CPT-37313 Level 2 Est. Patient 14:01:01 CDT Ramos Myers MD [facility] CPT-25889 Level 2 Est. Patient 16:14:11 CDT Ramos Myers MD [facility] CPT-81416 Level 2 Est. Patient 14:39:48 CDT Ramos Myers MD [facility] CPT-85455 Level 3 Est. Patient 10:13:26 GRANULIZING MACHINE OPERATOR Ramos Myers MD [facility] Procedures Code Procedure Name Date Entry Date Standard Description CPT-93710 Abd single AP View - XRAY USE ONLY 11:35:07 CDT CPT-38336 Postop F/U Visit 10:30:43 CDT CPT-A4357 Overnight urinary bag 10:24:50 CDT CPT-A4340 Indwell urin cath coude 10:24:50 CDT CPT-29064 Insert temp indwelling bld cath comp 10:24:50 CDT 01/14 CPT-A4340 Indwell urin cath coude 15:42:37 CDT CPT-25493 Postop F/U Visit 20:56:46 CDT CPT-33449 Aspiration hydrocele 15:23:51 GRANULIZING MACHINE OPERATOR CPT-LR Lesion Removal 14:01:01 CDT CPT-LR Lesion Removal 16:14:11 CDT CPT-99476 Postop F/U Visit 15:07:25 GRANULIZING MACHINE OPERATOR
--- OUTSIDE RECORDS SUMMARY | 2017-10-23 00:01 | XMS REPORT | Clinical Summary ---
Author Author Admin, NUZHAT Organization [facility] Address Unknown Phone Unavailable Allergies, Adverse [...] by mouth daily as needed TRAMADOL HCL 97984527569 No Longer Active Mukund Rivera MD Active AMLODIPINE BESYLATE 10 MG TABS 1 tablet by mouth daily AMLODIPINE BESYLATE 64981745164 No Longer Active Mukund Rivera MD Active SIMVASTATIN 20 MG ORAL TABS 1 tab by mouth daily SIMVASTATIN 94617759113 No Longer Active Mukund Rivera MD Active PLAVIX 75 MG ORAL TABS 1 tab by mouth daily CLOPIDOGREL BISULFATE 37533038715 No Longer Active Mukund Rivera MD Active HYDROXYCHLOROQUINE SULFATE 200 MG TABS by mouth twice a day 12/15 HYDROXYCHLOROQUINE SULFATE 65246096618 No Longer Active Mukund Rivera MD Active CIPRO 500 MG TAB 1 tablet two times daily CIPROFLOXACIN HCL 58867209210 No Longer Active Mukund Rivera MD Active OMEPRAZOLE 20 MG CPDR 1 tablet by mouth daily, as needed OMEPRAZOLE 23479018565 No Longer Active J Cholo Rivera MD Active [employer] Take one by mouth daily PROBIOTIC PRODUCT 78145176533 Active Ramos Myers MD Active KLOR-CON 10 10 MEQ CR-TABS Take one by mouth daily POTASSIUM CHLORIDE 35461343994 Active Ramos Myers MD Active FUROSEMIDE 20 MG TAB 1 tablet by mouth daily FUROSEMIDE 22655889462 Active Ramos Myers MD Active METHOTREXATE 2.5 MG TABS 6 tabs once a week METHOTREXATE SODIUM 11804806600 Active Ramos Myers MD Active DICLOFENAC SODIUM 75 MG TBEC Take one by mouth daily as needed DICLOFENAC SODIUM 87862907067 No Longer Active Ramos Myers MD Active SIMVASTATIN 20 MG TABS 1 tab daily at bedtime SIMVASTATIN 87552254812 No Longer Active Ramos Myers MD Active EQL WBHNVGPWKTI-NIOQPSPXK-KPW 500-400-166 MG TABS Take one by mouth daily IDCETKYHJWV-LJXLPQGWMCU-WBJ 92168082804 Active Ramos Myers MD Active CALCIUM 1500 MG TAB Take one by mouth daily CALCIUM CARBONATE 06655218987 Active Ramos Myers MD Active B-12 1000 MCG CR-TABS Take one by mouth daily CYANOCOBALAMIN 04824468527 Active Ramos Myers MD Active VITAMIN B-6 100 MG TABS Take one by mouth daily PYRIDOXINE HCL 68311904628 Active Ramos Myers MD Active ASPIRIN 81 MG TAB 1 tablet by mouth daily ASPIRIN 45542198966 Active Ramos Myers MD Active FOLIC ACID 1 MG TABS Take one by mouth daily FOLIC ACID 54633436452 Active Ramos Myers MD Active HYDROCHLOROTHIAZIDE 25 MG TABS 1 tablet by mouth daily HYDROCHLOROTHIAZIDE 02765209316 Active Ramos Myers MD Active METOPROLOL SUCCINATE ER 25 MG [id number]-KKC Take one by mouth twice daily METOPROLOL SUCCINATE 21002859024 Active Ramos Myers MD Active SIMVASTATIN 20 MG TABS 1 tab daily at bedtime SIMVASTATIN 20 MG TABS 526201 SIMVASTATIN Inactive DICLOFENAC SODIUM 75 MG TBEC Take one by mouth daily as needed DICLOFENAC SODIUM 75 MG TBEC 012937 DICLOFENAC SODIUM Inactive OMEPRAZOLE 20 MG CPDR 1 tablet by mouth daily, as needed OMEPRAZOLE 20 MG CPDR 792960 OMEPRAZOLE Inactive HYDROXYCHLOROQUINE SULFATE 200 MG TABS by mouth twice a day 12/15 HYDROXYCHLOROQUINE SULFATE 200 MG TABS 646094 HYDROXYCHLOROQUINE SULFATE Inactive PLAVIX 75 MG ORAL TABS 1 tab by mouth daily PLAVIX 75 MG ORAL TABS 047373 CLOPIDOGREL BISULFATE Inactive SIMVASTATIN 20 MG ORAL TABS 1 tab by mouth daily SIMVASTATIN 20 MG ORAL TABS 444199 SIMVASTATIN Inactive AMLODIPINE BESYLATE 10 MG TABS 1 tablet by mouth daily AMLODIPINE BESYLATE 10 MG TABS 015207 AMLODIPINE BESYLATE Inactive TRAMADOL HCL 50 MG TABS Take one by mouth daily as needed TRAMADOL HCL 50 MG TABS 252885 TRAMADOL HCL Inactive CIPRO 500 MG TAB 1 tablet two times daily CIPRO 500 MG TAB 971381 CIPROFLOXACIN HCL Inactive Advance Directives Directive Description [...] negative Encounters Code Encounter Date Provider Facility CPT-64361 Level 3 Est. Patient 19:01:41 CDT Mukund Rivera MD [facility] CPT-21493 Level 3 Est. Patient 23:28:14 CDT Mukund Rivera MD [facility] CPT-42766 Level 3 Est. Patient 14:56:41 RUBBER MOLDER Mukund Rivera MD [facility] CPT-87814 Level 3 Est. Patient 16:05:06 RUBBER MOLDER Mukund Rivera MD [facility] CPT-74451 Level 3 Est. Patient 14:06:16 RUBBER MOLDER Mukund Rivera MD [facility] CPT-15480 Level 3 New Patient 14:46:52 RUBBER MOLDER Mukund Rivera MD [facility] CPT-56896 Level 2 Est. Patient 14:01:01 CDT Ramos Myers MD [facility] CPT-44489 Level 2 Est. Patient 16:14:11 CDT Ramos Myers MD [facility] CPT-66154 Level 2 Est. Patient 14:39:48 CDT Ramos Myers MD [facility] CPT-48178 Level 3 Est. Patient 10:13:26 RUBBER MOLDER Ramos Myers MD [facility] Procedures Code Procedure Name Date Entry Date Standard Description CPT-00176 Postop F/U Visit 10:44:37 CDT CPT-69726 Abd single AP View - XRAY USE ONLY 09:47:35 CDT CPT-20089 Cystoscopy 19:01:42 CDT CPT-99304 Abd single AP View - XRAY USE ONLY 11:35:07 CDT CPT-24000 Postop F/U Visit 10:30:43 CDT CPT-A4357 Overnight urinary bag 10:24:50 CDT CPT-A4340 Indwell urin cath coude 10:24:50 CDT CPT-92815 Insert temp indwelling bld cath comp 10:24:50 CDT 01/14 CPT-A4340 Indwell urin cath coude 15:42:37 CDT CPT-09010 Postop F/U Visit 20:56:46 CDT CPT-83639 Aspiration hydrocele 15:23:51 RUBBER MOLDER CPT-LR Lesion Removal 14:01:01 CDT CPT-LR Lesion Removal 16:14:11 CDT CPT-99570 Postop F/U Visit 15:07:25 RUBBER MOLDER
--- OUTSIDE RECORDS SUMMARY | 2017-10-23 00:01 | XMS REPORT ---
Author Author [facility] Medical Staff Organization [facility] Address [address] [place], [place] [address] Phone [phone] Care Team Providers Care Fruit Or Nut Picker Name Role Phone BRUNILDA BENAVIDES MD, PP [phone] Summary purpose TRANSITION OF CARE AUTO GENERATION Chief Complaint and Reason for Visit Admit Diagnosis 1 COUGH Problem list No authorized problems tracked for [...] tests and/or laboratory data RESULTS Radiology Results [id number] Chest X-Ray - 2 View PACs Image [...] Chest otherwise unremarkable. DO CLEMENTINA Vásquez/jessi 02/04/2015 11:16: / 02/04/2015 11:46:45 cc:Dr. Brunilda Benavides This document has [...] Chest otherwise unremarkable. DO CLEMENTINA Vásquez/jessi 02/04/2015 11:16: / 02/04/2015 11:46:45 cc:Dr. Brunilda Benavides This document has been electronically Signed by: FILIPE AUSTIN DO On: Feb 04 2015 12:59P Result Amended on 2015-02-04 at 12:59:32. Previous status was [place]. History of procedures Procedure Code Code Type Description Date Performed Performing Physician [id number] CPT-4 CHEST X-RAY 02-04-2015 BRUNILDA BENAVIDES Functional status No functional or cognitive status [...]
--- OUTSIDE RECORDS SUMMARY | 2017-10-23 00:02 | XMS REPORT | Clinical Summary ---
Author Author Admin, E Organization [facility] Address Unknown [...] Coronary atherosclerosis of unspecified type of vessel, y[place] dehe or graft HYPERTENSION 401.9 Active SHASTA Rosenberg [...] by mouth daily as needed TRAMADOL HCL 49856068787 No Longer Active Mukund Rivera MD Active AMLODIPINE BESYLATE 10 MG TABS 1 tablet by mouth daily AMLODIPINE BESYLATE 80203472110 No Longer Active Mukund Rivera MD Active SIMVASTATIN 20 MG ORAL TABS 1 tab by mouth daily SIMVASTATIN 37285516998 No Longer Active Mukund Rivera MD Active PLAVIX 75 MG ORAL TABS 1 tab by mouth daily CLOPIDOGREL BISULFATE 53476603006 No Longer Active Mukund Rivera MD Active HYDROXYCHLOROQUINE SULFATE 200 MG TABS by mouth twice a day 12/15 HYDROXYCHLOROQUINE SULFATE 82667189315 No Longer Active Mukund Rivera MD Active CIPRO 500 MG TAB 1 tablet two times daily CIPROFLOXACIN HCL 74163323762 No Longer Active Mukund Rivera MD Active OMEPRAZOLE 20 MG CPDR 1 tablet by mouth daily, as needed OMEPRAZOLE 56306456767 No Longer Active Mukund Rivera MD Active [employer] Take one by mouth daily PROBIOTIC PRODUCT 17314938143 Active Ramos Myers MD Active KLOR-CON 10 10 MEQ CR-TABS Take one by mouth daily POTASSIUM CHLORIDE 50095046675 Active Ramos Myers MD Active FUROSEMIDE 20 MG TAB 1 tablet by mouth daily FUROSEMIDE 93207914794 Active Ramos Myers MD Active METHOTREXATE 2.5 MG TABS 6 tabs once a week METHOTREXATE SODIUM 07917753343 Active Ramos Myers MD Active DICLOFENAC SODIUM 75 MG TBEC Take one by mouth daily as needed DICLOFENAC SODIUM 26378019859 No Longer Active Ramos Myers MD Active SIMVASTATIN 20 MG TABS 1 tab daily at bedtime SIMVASTATIN 50922919090 No Longer Active Ramos Myers MD Active EQL HLGETARDRSU-GYSVCAMST-RYC 500-400-166 MG TABS Take one by mouth daily [id number]-RPS 25201097491 Active Ramos Myers MD Active CALCIUM 1500 MG TAB Take one by mouth daily CALCIUM CARBONATE 72944204467 Active Ramos Myers MD Active B-12 1000 MCG CR-TABS Take one by mouth daily CYANOCOBALAMIN 22204541275 Active Ramos Myers MD Active VITAMIN B-6 100 MG TABS Take one by mouth daily PYRIDOXINE HCL 20927224922 Active Ramos Myers MD Active ASPIRIN 81 MG TAB 1 tablet by mouth daily ASPIRIN 47690833897 Active Ramos Myers MD Active FOLIC ACID 1 MG TABS Take one by mouth daily FOLIC ACID 66937064750 Active Ramos Myers MD Active HYDROCHLOROTHIAZIDE 25 MG TABS 1 tablet by mouth daily HYDROCHLOROTHIAZIDE 65129358336 Active Ramos Myers MD Active METOPROLOL SUCCINATE ER 25 MG [id number] Take one by mouth twice daily METOPROLOL SUCCINATE 89644845945 Active Ramos Myers MD Active SIMVASTATIN 20 MG TABS 1 tab daily at bedtime SIMVASTATIN 20 MG TABS 823000 SIMVASTATIN Inactive DICLOFENAC SODIUM 75 MG TBEC Take one by mouth daily as needed DICLOFENAC SODIUM 75 MG TBEC 763374 DICLOFENAC SODIUM Inactive OMEPRAZOLE 20 MG CPDR 1 tablet by mouth daily, as needed OMEPRAZOLE 20 MG CPDR 028169 OMEPRAZOLE Inactive HYDROXYCHLOROQUINE SULFATE 200 MG TABS by mouth twice a day 12/15 HYDROXYCHLOROQUINE SULFATE 200 MG TABS 430767 HYDROXYCHLOROQUINE SULFATE Inactive PLAVIX 75 MG ORAL TABS 1 tab by mouth daily PLAVIX 75 MG ORAL TABS 867791 CLOPIDOGREL BISULFATE Inactive SIMVASTATIN 20 MG ORAL TABS 1 tab by mouth daily SIMVASTATIN 20 MG ORAL TABS 304321 SIMVASTATIN Inactive AMLODIPINE BESYLATE 10 MG TABS 1 tablet by mouth daily AMLODIPINE BESYLATE 10 MG TABS 230912 AMLODIPINE BESYLATE Inactive TRAMADOL HCL 50 MG TABS Take one by mouth daily as needed TRAMADOL HCL 50 MG TABS 400446 TRAMADOL HCL Inactive CIPRO 500 MG TAB 1 tablet two times daily CIPRO 500 MG TAB 144709 CIPROFLOXACIN HCL Inactive Advance Directives Directive Description [...] negative Encounters Code Encounter Date Provider Facility CPT-89856 Level 3 Est. Patient 10:36:44 SPORTS MARKETING SPECIALIST Mukund Rivera MD [facility] CPT-92283 Level 3 Est. Patient 19:01:41 CDT Mukund Rivera MD [facility] CPT-36475 Level 3 Est. Patient 23:28:14 CDT Mukund Rivera MD [facility] CPT-00959 Level 3 Est. Patient 14:56:41 SPORTS MARKETING SPECIALIST Mukund Rivera MD [facility] CPT-54381 Level 3 Est. Patient 16:05:06 SPORTS MARKETING SPECIALIST Mukund Rivera MD [facility] CPT-49585 Level 3 Est. Patient 14:06:16 SPORTS MARKETING SPECIALIST Mukund Rivera MD [facility] CPT-69488 Level 3 New Patient 14:46:52 SPORTS MARKETING SPECIALIST Mukund Rivera MD [facility] CPT-96468 Level 2 Est. Patient 14:01:01 CDT Ramos Myers MD [facility] CPT-95716 Level 2 Est. Patient 16:14:11 CDT Ramos Myers MD [facility] CPT-68360 Level 2 Est. Patient 14:39:48 CDT Ramos Myers MD [facility] CPT-76021 Level 3 Est. Patient 10:13:26 SPORTS MARKETING SPECIALIST Ramos Myers MD [facility] Procedures Code Procedure Name Date Entry Date Standard Description CPT-99883 Abd single AP View - XRAY USE ONLY 09:40:50 SPORTS MARKETING SPECIALIST CPT-60458 Postop F/U Visit 10:44:37 CDT CPT-20798 Abd single AP View - XRAY USE ONLY 09:47:35 CDT CPT-62871 Cystoscopy 19:01:42 CDT CPT-60017 Abd single AP View - XRAY USE ONLY 11:35:07 CDT CPT-41305 Postop F/U Visit 10:30:43 CDT CPT-A4357 Overnight urinary bag 10:24:50 CDT CPT-A4340 Indwell urin cath coude 10:24:50 CDT CPT-57760 Insert temp indwelling bld cath comp 10:24:50 CDT 01/14 CPT-A4340 Indwell urin cath coude 15:42:37 CDT CPT-92746 Postop F/U Visit 20:56:46 CDT CPT-43525 Aspiration hydrocele 15:23:51 SPORTS MARKETING SPECIALIST CPT-LR Lesion Removal 14:01:01 CDT CPT-LR Lesion Removal 16:14:11 CDT CPT-42313 Postop F/U Visit 15:07:25 SPORTS MARKETING SPECIALIST
--- OUTSIDE RECORDS SUMMARY | 2017-10-23 00:02 | XMS REPORT | Clinical Summary ---
Author Author Admin, E Organization [facility] Address Unknown Phone Unavailable Allergies, Adverse Reactions, [...] Coronary atherosclerosis of unspecified type of vessel, [place] or graft HYPERTENSION 401.9 Active SHASTA Rosenberg [...] mouth twice a day 12/15 HYDROXYCHLOROQUINE SULFATE 71885952628 No Longer Active Mukund Rivera MD Active CIPRO 500 MG TAB 1 tablet two times daily CIPROFLOXACIN HCL 97070495764 No Longer Active Mukund Rivera MD Active PLAVIX 75 MG ORAL TABS 1 tab by mouth daily CLOPIDOGREL BISULFATE 94630775766 Active Mukund Rivera MD Active SIMVASTATIN 20 MG ORAL TABS 1 tab by mouth daily SIMVASTATIN 66103307263 Active Mukund Rivera MD Active OMEPRAZOLE 20 MG CPDR 1 tablet by mouth daily, as needed OMEPRAZOLE 77242229451 No Longer Active Mukund Rivera MD Active [employer] Take one by mouth daily PROBIOTIC PRODUCT 18645612965 Active Ramos Myers MD Active KLOR-CON 10 10 MEQ CR-TABS Take one by mouth daily POTASSIUM CHLORIDE 58431797070 Active Ramos Myers MD Active FUROSEMIDE 20 MG TAB 1 tablet by mouth daily FUROSEMIDE 26672450749 Active Ramos Myers MD Active METHOTREXATE 2.5 MG TABS 6 tabs once a week METHOTREXATE SODIUM 05678848527 Active Ramos Myers MD Active DICLOFENAC SODIUM 75 MG TBEC Take one by mouth daily as needed DICLOFENAC SODIUM 50467975911 No Longer Active Ramos Myers MD Active SIMVASTATIN 20 MG TABS 1 tab daily at bedtime SIMVASTATIN 55008912194 No Longer Active Ramos Myers MD Active AMLODIPINE BESYLATE 10 MG TABS 1 tablet by mouth daily AMLODIPINE BESYLATE 26052040064 Active Ramos Myers MD Active EQL TGHTRUIXTFB-[id number]-CDA 500-400-166 MG TABS Take one by mouth daily XELWBXYJKSR-CLDGRXCKBZB-NNX 20215217796 Active Ramos Myers MD Active CALCIUM 1500 MG TAB Take one by mouth daily CALCIUM CARBONATE 15469500903 Active Ramos Myers MD Active B-12 1000 MCG CR-TABS Take one by mouth daily CYANOCOBALAMIN 95380191448 Active Ramos Myers MD Active VITAMIN B-6 100 MG TABS Take one by mouth daily PYRIDOXINE HCL 43220385057 Active Ramos Myers MD Active ASPIRIN 81 MG TAB 1 tablet by mouth daily ASPIRIN 65235582922 Active Ramos Myers MD Active TRAMADOL HCL 50 MG TABS Take one by mouth daily as needed TRAMADOL HCL 40357047066 Active Ramos Myers MD Active FOLIC ACID 1 MG TABS Take one by mouth daily FOLIC ACID 85938081141 Active Ramos Myers MD Active HYDROCHLOROTHIAZIDE 25 MG TABS 1 tablet by mouth daily HYDROCHLOROTHIAZIDE 88743165462 Active Ramos Myers MD Active METOPROLOL SUCCINATE ER 25 MG [id number] Take one by mouth twice daily METOPROLOL SUCCINATE 05856484280 Active Ramos Myers MD Active SIMVASTATIN 20 MG TABS 1 tab daily at bedtime SIMVASTATIN 20 MG TABS 119487 SIMVASTATIN Inactive DICLOFENAC SODIUM 75 MG TBEC Take one by mouth daily as needed DICLOFENAC SODIUM 75 MG TBEC 964465 DICLOFENAC SODIUM Inactive OMEPRAZOLE 20 MG CPDR 1 tablet by mouth daily, as needed OMEPRAZOLE 20 MG CPDR 113527 OMEPRAZOLE Inactive HYDROXYCHLOROQUINE SULFATE 200 MG TABS by mouth twice a day 12/15 HYDROXYCHLOROQUINE SULFATE 200 MG TABS 033212 HYDROXYCHLOROQUINE SULFATE Inactive CIPRO 500 MG TAB 1 tablet two times daily CIPRO 500 MG TAB 613736 CIPROFLOXACIN HCL Inactive Advance Directives Directive Description [...] Measured Encounters Code Encounter Date Provider Facility CPT-49805 Level 3 Est. Patient 14:56:41 HOSIERY OPERATOR Mukund Rivera MD [facility] CPT-63736 Level 3 Est. Patient 16:05:06 HOSIERY OPERATOR Mukund Rivera MD [facility] CPT-63277 Level 3 Est. Patient 14:06:16 HOSIERY OPERATOR Mukund Rivera MD [facility] CPT-28400 Level 3 New Patient 14:46:52 HOSIERY OPERATOR Mukund Rivera MD [facility] CPT-31064 Level 2 Est. Patient 14:01:01 CDT Ramos Myers MD [facility] CPT-82865 Level 2 Est. Patient 16:14:11 CDT Ramos Myers MD [facility] CPT-68855 Level 2 Est. Patient 14:39:48 CDT Ramos Myers MD [facility] CPT-81639 Level 3 Est. Patient 10:13:26 HOSIERY OPERATOR Ramos Myers MD [facility] Procedures Code Procedure Name Date Entry Date Standard Description CPT-A4340 Indwell urin cath coude 15:42:37 CDT CPT-33985 Postop F/U Visit 20:56:46 CDT CPT-13515 Aspiration hydrocele 15:23:51 HOSIERY OPERATOR CPT-LR Lesion Removal 14:01:01 CDT CPT-LR Lesion Removal 16:14:11 CDT CPT-66068 Postop F/U Visit 15:07:25 HOSIERY OPERATOR
--- OUTSIDE RECORDS SUMMARY | 2017-10-23 00:02 | XMS REPORT | Clinical Summary ---
Author Author Admin, NUZHAT Organization [facility] Address Unknown Phone Unavailable Allergies, [...] Coronary atherosclerosis of unspecified type of vessel, [place] or graft HYPERTENSION 401.9 Active SHASTA Rosenberg [...] by mouth daily as needed TRAMADOL HCL 94569836858 No Longer Active Mukund Rivera MD Active AMLODIPINE BESYLATE 10 MG TABS 1 tablet by mouth daily AMLODIPINE BESYLATE 85031225121 No Longer Active Mukund Rivera MD Active SIMVASTATIN 20 MG ORAL TABS 1 tab by mouth daily SIMVASTATIN 12660611457 No Longer Active Mukund Rivera MD Active PLAVIX 75 MG ORAL TABS 1 tab by mouth daily CLOPIDOGREL BISULFATE 33834995596 No Longer Active Mukund Rivera MD Active HYDROXYCHLOROQUINE SULFATE 200 MG TABS by mouth twice a day 12/15 HYDROXYCHLOROQUINE SULFATE 99687159447 No Longer Active Mukund Rivera MD Active CIPRO 500 MG TAB 1 tablet two times daily CIPROFLOXACIN HCL 91727942187 No Longer Active Mukund Rivera MD Active OMEPRAZOLE 20 MG CPDR 1 tablet by mouth daily, as needed OMEPRAZOLE 89198812621 No Longer Active Mukund Rivera MD Active [employer] Take one by mouth daily PROBIOTIC PRODUCT 00231950184 Active Ramos Myers MD Active KLOR-CON 10 10 MEQ CR-TABS Take one by mouth daily POTASSIUM CHLORIDE 95362079890 Active Ramos Myers MD Active FUROSEMIDE 20 MG TAB 1 tablet by mouth daily FUROSEMIDE 76925462884 Active Ramos Myers MD Active METHOTREXATE 2.5 MG TABS 6 tabs once a week METHOTREXATE SODIUM 65609994661 Active Ramos Myers MD Active DICLOFENAC SODIUM 75 MG TBEC Take one by mouth daily as needed DICLOFENAC SODIUM 17830676590 No Longer Active Ramos Myers MD Active SIMVASTATIN 20 MG TABS 1 tab daily at bedtime SIMVASTATIN 19672355092 No Longer Active Ramos Myers MD Active EQL UAALJQXRCOQ-[id number]-YKJ 500-400-166 MG TABS Take one by mouth daily [id number] 72463110920 Active Ramos Myers MD Active CALCIUM 1500 MG TAB Take one by mouth daily CALCIUM CARBONATE 13342913857 Active Ramos Myers MD Active B-12 1000 MCG CR-TABS Take one by mouth daily CYANOCOBALAMIN 81893014332 Active Ramos Myers MD Active VITAMIN B-6 100 MG TABS Take one by mouth daily PYRIDOXINE HCL 91885629170 Active Ramos Myers MD Active ASPIRIN 81 MG TAB 1 tablet by mouth daily ASPIRIN 29939758179 Active Ramos Myers MD Active FOLIC ACID 1 MG TABS Take one by mouth daily FOLIC ACID 57786176775 Active Ramos Myers MD Active HYDROCHLOROTHIAZIDE 25 MG TABS 1 tablet by mouth daily HYDROCHLOROTHIAZIDE 28962764335 Active Ramos Myers MD Active METOPROLOL SUCCINATE ER 25 MG [id number] Take one by mouth twice daily METOPROLOL SUCCINATE 93933090307 Active Ramos Myers MD Active SIMVASTATIN 20 MG TABS 1 tab daily at bedtime SIMVASTATIN 20 MG TABS 736717 SIMVASTATIN Inactive DICLOFENAC SODIUM 75 MG TBEC Take one by mouth daily as needed DICLOFENAC SODIUM 75 MG TBEC 572705 DICLOFENAC SODIUM Inactive OMEPRAZOLE 20 MG CPDR 1 tablet by mouth daily, as needed OMEPRAZOLE 20 MG CPDR 150021 OMEPRAZOLE Inactive HYDROXYCHLOROQUINE SULFATE 200 MG TABS by mouth twice a day 12/15 HYDROXYCHLOROQUINE SULFATE 200 MG TABS 006354 HYDROXYCHLOROQUINE SULFATE Inactive PLAVIX 75 MG ORAL TABS 1 tab by mouth daily PLAVIX 75 MG ORAL TABS 202776 CLOPIDOGREL BISULFATE Inactive SIMVASTATIN 20 MG ORAL TABS 1 tab by mouth daily SIMVASTATIN 20 MG ORAL TABS 618186 SIMVASTATIN Inactive AMLODIPINE BESYLATE 10 MG TABS 1 tablet by mouth daily AMLODIPINE BESYLATE 10 MG TABS 975789 AMLODIPINE BESYLATE Inactive TRAMADOL HCL 50 MG TABS Take one by mouth daily as needed TRAMADOL HCL 50 MG TABS 228390 TRAMADOL HCL Inactive CIPRO 500 MG TAB 1 tablet two times daily CIPRO 500 MG TAB 672474 CIPROFLOXACIN HCL Inactive Advance Directives Directive Description [...] Measured Encounters Code Encounter Date Provider Facility CPT-87269 Level 3 Est. Patient 23:28:14 CDT Mukund Rivera MD [facility] CPT-03493 Level 3 Est. Patient 14:56:41 FLUX CORE WELDER Mukund Rivera MD [facility] CPT-56807 Level 3 Est. Patient 16:05:06 FLUX CORE WELDER Mukund Rivera MD [facility] CPT-83534 Level 3 Est. Patient 14:06:16 FLUX CORE WELDER Mukund Rivera MD [facility] CPT-81196 Level 3 New Patient 14:46:52 FLUX CORE WELDER Mukund Rivera MD [facility] CPT-48412 Level 2 Est. Patient 14:01:01 CDT Ramos Myers MD [facility] CPT-68057 Level 2 Est. Patient 16:14:11 CDT Ramos Myers MD [facility] CPT-27411 Level 2 Est. Patient 14:39:48 CDT Ramos Myers MD [facility] CPT-77292 Level 3 Est. Patient 10:13:26 FLUX CORE WELDER Ramos Myers MD [facility] Procedures Code Procedure Name Date Entry Date Standard Description CPT-A4357 Overnight urinary bag 10:24:50 CDT CPT-A4340 Indwell urin cath coude 10:24:50 CDT CPT-58925 Insert temp indwelling bld cath comp 10:24:50 CDT 01/14 CPT-A4340 Indwell urin cath coude 15:42:37 CDT CPT-84637 Postop F/U Visit 20:56:46 CDT CPT-44496 Aspiration hydrocele 15:23:51 FLUX CORE WELDER CPT-LR Lesion Removal 14:01:01 CDT CPT-LR Lesion Removal 16:14:11 CDT CPT-10165 Postop F/U Visit 15:07:25 FLUX CORE WELDER
--- OUTSIDE RECORDS SUMMARY | 2017-10-23 00:03 | XMS REPORT ---
Author Author [facility] Medical Staff Organization [facility] Address [address] [place] [id number] Phone [phone] Care Team Providers Care Geospatial Engineer Name Role Phone BRUNILDA BENAVIDES MD [phone] Summary purpose TRANSITION OF CARE AUTO GENERATION [...] tests and/or laboratory data RESULTS Radiology Results [id number] Chest X-Ray - 2 View PACs Image DATE OF EXAM: Jan 16 2016 RAD 0300-CHEST XRAY 2 VIEW : RADIOLOGY REPORT DATE OF SERVICE: 3/31/16 HISTORY: Patient has cough and shortness of breath x3 days. CHEST 2 VIEWS 1135 HOURS Patient has undergone coronary artery bypass surgery. Heart is upper limits of normal in size. Pulmonary vascularity is normal. Lungs are clear. No effusion is seen. IMPRESSION: No acute process in the chest or change from 02/04/2015. Filipe Austin DO /in 01/16/2016 13:44:01/16/2016 14:27:42 cc:Dr. Brunilda Benavides This document has been electronically Signed by: On: DATE OF EXAM: Jan 16 2016 RAD 0300-CHEST XRAY 2 VIEW : RADIOLOGY REPORT DATE OF SERVICE: 01/16/16 HISTORY: Patient has cough and shortness of breath x3 days. CHEST 2 VIEWS 1135 HOURS Patient has undergone coronary artery bypass surgery. Heart is upper limits of normal in size. Pulmonary vascularity is normal. Lungs are clear. No effusion is seen. IMPRESSION: No acute process in the chest or change from 02/04/2015. Filipe Austin DO /in 01/16/2016 13:44:01/16/2016 14:27:42 cc:Dr. Brunilda Benavides This document has been electronically Signed by: FILIPE AUSTIN DO On: Jan 16 20168:04P Result Amended on 2016-01-16 at 20:04:24. Previous status was [place]. History of procedures Procedure Code Code Type Description Date Performed Performing Physician 65645 CPT-4 CHEST X-RAY 01-16-2016 BRUNILDA BENAVIDES Functional status No functional or [...]
--- OUTSIDE RECORDS SUMMARY | 2017-10-23 00:03 | XMS REPORT | Clinical Summary ---
Author Author Admin, NUZHAT Organization [facility] Address Unknown Phone Unavailable Allergies, Adverse Reactions, Alerts Allergy Name Reaction Description Start Date Severity Status Provider NEOSPORIN Critical Active SHASTA Rosenberg TETRACYCLINE Critical Active SHASTA Rosenberg BACTRIM Critical Active SAHSTA Rosenberg HYZAAR Critical Active SHASTA Rosenberg Conditions or Problems Problem Name Problem Code Onset Date Status Entry Date Provider Comment Standard Description Annotate CORONARY HEART DISEASE 414.00 Active SHASTA Rosenberg Coronary atherosclerosis of unspecified type of vessel, [place] or graft HYPERTENSION 401.9 Active SHASTA Rosenberg [...] mouth twice a day 12/15 HYDROXYCHLOROQUINE SULFATE 51057794789 No Longer Active Mukund Rivera MD Active CIPRO 500 MG TAB 1 tablet two times daily CIPROFLOXACIN HCL 65994085489 No Longer Active Mukund Rivera MD Active PLAVIX 75 MG ORAL TABS 1 tab by mouth daily CLOPIDOGREL BISULFATE 30276297941 Active Mukund Rivera MD Active SIMVASTATIN 20 MG ORAL TABS 1 tab by mouth daily SIMVASTATIN 16921337717 Active Mukund Rivera MD Active OMEPRAZOLE 20 MG CPDR 1 tablet by mouth daily, as needed OMEPRAZOLE 12143132622 No Longer Active Mukund Rivera MD Active [employer] Take one by mouth daily PROBIOTIC PRODUCT 31295376619 Active Ramos Myers MD Active KLOR-CON 10 10 MEQ CR-TABS Take one by mouth daily POTASSIUM CHLORIDE 27952136604 Active Ramos Myers MD Active FUROSEMIDE 20 MG TAB 1 tablet by mouth daily FUROSEMIDE 48843309676 Active Ramos Myers MD Active METHOTREXATE 2.5 MG TABS 6 tabs once a week METHOTREXATE SODIUM 14093974246 Active Ramos Myers MD Active DICLOFENAC SODIUM 75 MG TBEC Take one by mouth daily as needed DICLOFENAC SODIUM 95432818545 No Longer Active Ramos Myers MD Active SIMVASTATIN 20 MG TABS 1 tab daily at bedtime SIMVASTATIN 60296806607 No Longer Active Ramos Myers MD Active AMLODIPINE BESYLATE 10 MG TABS 1 tablet by mouth daily AMLODIPINE BESYLATE 23304188873 Active Ramos Myers MD Active EQL LWZKDPYRLPI-GXYZAQNUN-TLL 500-400-166 MG TABS Take one by mouth daily YAXTQHSXRGT-ZBZOMTVJOFB-FWJ 55523113893 Active Ramos Myers MD Active CALCIUM 1500 MG TAB Take one by mouth daily CALCIUM CARBONATE 01028212608 Active Ramos Myers MD Active B-12 1000 MCG CR-TABS Take one by mouth daily CYANOCOBALAMIN 63775931349 Active Ramos Myers MD Active VITAMIN B-6 100 MG TABS Take one by mouth daily PYRIDOXINE HCL 67596251795 Active Ramos Myers MD Active ASPIRIN 81 MG TAB 1 tablet by mouth daily ASPIRIN 81757046457 Active Ramos Myers MD Active TRAMADOL HCL 50 MG TABS Take one by mouth daily as needed TRAMADOL HCL 61429630954 Active Ramos Myers MD Active FOLIC ACID 1 MG TABS Take one by mouth daily FOLIC ACID 82324823032 Active Ramos Myers MD Active HYDROCHLOROTHIAZIDE 25 MG TABS 1 tablet by mouth daily HYDROCHLOROTHIAZIDE 86905205227 Active Ramos Myers MD Active METOPROLOL SUCCINATE ER 25 MG [id number] Take one by mouth twice daily METOPROLOL SUCCINATE 52285300203 Active Ramos Myers MD Active SIMVASTATIN 20 MG TABS 1 tab daily at bedtime SIMVASTATIN 20 MG TABS 137361 SIMVASTATIN Inactive DICLOFENAC SODIUM 75 MG TBEC Take one by mouth daily as needed DICLOFENAC SODIUM 75 MG TBEC 990645 DICLOFENAC SODIUM Inactive OMEPRAZOLE 20 MG CPDR 1 tablet by mouth daily, as needed OMEPRAZOLE 20 MG CPDR 404639 OMEPRAZOLE Inactive HYDROXYCHLOROQUINE SULFATE 200 MG TABS by mouth twice a day 12/15 HYDROXYCHLOROQUINE SULFATE 200 MG TABS 601422 HYDROXYCHLOROQUINE SULFATE Inactive CIPRO 500 MG TAB 1 tablet two times daily CIPRO 500 MG TAB 810926 CIPROFLOXACIN HCL Inactive Advance Directives Directive Description [...] Measured Encounters Code Encounter Date Provider Facility CPT-43028 Level 3 Est. Patient 14:56:41 JOURNEYMAN PAINTER Mukund Rivera MD [facility] CPT-44596 Level 3 Est. Patient 16:05:06 JOURNEYMAN PAINTER Mukund Rivera MD [facility] CPT-01717 Level 3 Est. Patient 14:06:16 JOURNEYMAN PAINTER Mukund Rivera MD [facility] CPT-14114 Level 3 New Patient 14:46:52 JOURNEYMAN PAINTER Mukund Rivera MD [facility] CPT-56774 Level 2 Est. Patient 14:01:01 CDT Ramos Myers MD [facility] CPT-17395 Level 2 Est. Patient 16:14:11 CDT Ramos Myers MD [facility] CPT-71520 Level 2 Est. Patient 14:39:48 CDT Ramos Myers MD [facility] CPT-95828 Level 3 Est. Patient 10:13:26 JOURNEYMAN PAINTER Ramos Myers MD [facility] Procedures Code Procedure Name Date Entry Date Standard Description CPT-A4340 Indwell urin cath coude 15:42:37 CDT CPT-29675 Postop F/U Visit 20:56:46 CDT CPT-71960 Aspiration hydrocele 15:23:51 JOURNEYMAN PAINTER CPT-LR Lesion Removal 14:01:01 CDT CPT-LR Lesion Removal 16:14:11 CDT CPT-80881 Postop F/U Visit 15:07:25 JOURNEYMAN PAINTER
--- OUTSIDE RECORDS SUMMARY | 2017-10-23 00:03 | XMS REPORT | Clinical Summary ---
Author Author Admin, NUZHAT Organization [facility] Address Unknown Phone Unavailable Allergies, Adverse [...] Coronary atherosclerosis of unspecified type of vessel, kiana or graft HYPERTENSION 401.9 Active SHASTA Rosenberg [...] by mouth daily as needed TRAMADOL HCL 55454944538 No Longer Active Mukund Rivera MD Active AMLODIPINE BESYLATE 10 MG TABS 1 tablet by mouth daily AMLODIPINE BESYLATE 76163398885 No Longer Active Mukund Rivera MD Active SIMVASTATIN 20 MG ORAL TABS 1 tab by mouth daily SIMVASTATIN 71064272232 No Longer Active Mukund Rivera MD Active PLAVIX 75 MG ORAL TABS 1 tab by mouth daily CLOPIDOGREL BISULFATE 01692436592 No Longer Active Mukund Rivera MD Active HYDROXYCHLOROQUINE SULFATE 200 MG TABS by mouth twice a day 12/15 HYDROXYCHLOROQUINE SULFATE 35437769537 No Longer Active Mukund Rivera MD Active CIPRO 500 MG TAB 1 tablet two times daily CIPROFLOXACIN HCL 40751540045 No Longer Active Mukund Rivera MD Active OMEPRAZOLE 20 MG CPDR 1 tablet by mouth daily, as needed OMEPRAZOLE 04996217051 No Longer Active J Cholo Rivera MD Active OREILLY [facility] CAPS Take one by mouth daily PROBIOTIC PRODUCT 15766964827 Active Ramos Myers MD Active KLOR-CON 10 10 MEQ CR-TABS Take one by mouth daily POTASSIUM CHLORIDE 65953621140 Active Ramos Myers MD Active FUROSEMIDE 20 MG TAB 1 tablet by mouth daily FUROSEMIDE 51889730459 Active Ramos Myers MD Active METHOTREXATE 2.5 MG TABS 6 tabs once a week METHOTREXATE SODIUM 91483418217 Active Ramos Myers MD Active DICLOFENAC SODIUM 75 MG TBEC Take one by mouth daily as needed DICLOFENAC SODIUM 09651631144 No Longer Active Ramos Myers MD Active SIMVASTATIN 20 MG TABS 1 tab daily at bedtime SIMVASTATIN 90330489432 No Longer Active Ramos Myers MD Active EQL [id number] 500-400-166 MG TABS Take one by mouth daily [id number] 89672151771 Active Ramos Myers MD Active CALCIUM 1500 MG TAB Take one by mouth daily CALCIUM CARBONATE 42112200171 Active Ramos Myers MD Active B-12 1000 MCG CR-TABS Take one by mouth daily CYANOCOBALAMIN 94620570082 Active Ramos Myers MD Active VITAMIN B-6 100 MG TABS Take one by mouth daily PYRIDOXINE HCL 37100258833 Active Ramos Myers MD Active ASPIRIN 81 MG TAB 1 tablet by mouth daily ASPIRIN 78734135545 Active Ramos Myers MD Active FOLIC ACID 1 MG TABS Take one by mouth daily FOLIC ACID 42356312076 Active Ramos Myers MD Active HYDROCHLOROTHIAZIDE 25 MG TABS 1 tablet by mouth daily HYDROCHLOROTHIAZIDE 15963278129 Active Ramos Myers MD Active METOPROLOL SUCCINATE ER 25 MG [id number] Take one by mouth twice daily METOPROLOL SUCCINATE 92095468627 Active Ramos Myers MD Active SIMVASTATIN 20 MG TABS 1 tab daily at bedtime SIMVASTATIN 20 MG TABS 461500 SIMVASTATIN Inactive DICLOFENAC SODIUM 75 MG TBEC Take one by mouth daily as needed DICLOFENAC SODIUM 75 MG TBEC 498468 DICLOFENAC SODIUM Inactive OMEPRAZOLE 20 MG CPDR 1 tablet by mouth daily, as needed OMEPRAZOLE 20 MG CPDR 212699 OMEPRAZOLE Inactive HYDROXYCHLOROQUINE SULFATE 200 MG TABS by mouth twice a day 12/15 HYDROXYCHLOROQUINE SULFATE 200 MG TABS 368400 HYDROXYCHLOROQUINE SULFATE Inactive PLAVIX 75 MG ORAL TABS 1 tab by mouth daily PLAVIX 75 MG ORAL TABS 709397 CLOPIDOGREL BISULFATE Inactive SIMVASTATIN 20 MG ORAL TABS 1 tab by mouth daily SIMVASTATIN 20 MG ORAL TABS 815283 SIMVASTATIN Inactive AMLODIPINE BESYLATE 10 MG TABS 1 tablet by mouth daily AMLODIPINE BESYLATE 10 MG TABS 337496 AMLODIPINE BESYLATE Inactive TRAMADOL HCL 50 MG TABS Take one by mouth daily as needed TRAMADOL HCL 50 MG TABS 766058 TRAMADOL HCL Inactive CIPRO 500 MG TAB 1 tablet two times daily CIPRO 500 MG TAB 675215 CIPROFLOXACIN HCL Inactive Advance Directives Directive Description [...] negative Encounters Code Encounter Date Provider Facility CPT-99837 Level 3 Est. Patient 19:01:41 CDT Mukund Rivera MD [facility] CPT-16849 Level 3 Est. Patient 23:28:14 CDT Mukund Rivera MD [facility] CPT-99379 Level 3 Est. Patient 14:56:41 ARTS EDUCATION TEACHER Mukund Rivera MD [facility] CPT-37704 Level 3 Est. Patient 16:05:06 ARTS EDUCATION TEACHER Mukund Rivera MD [facility] CPT-50272 Level 3 Est. Patient 14:06:16 ARTS EDUCATION TEACHER Mukund Rivera MD [facility] CPT-12635 Level 3 New Patient 14:46:52 ARTS EDUCATION TEACHER Mukund Rivera MD [facility] CPT-37131 Level 2 Est. Patient 14:01:01 CDT Ramos Myers MD [facility] CPT-30266 Level 2 Est. Patient 16:14:11 CDT Ramos Myers MD [facility] CPT-13274 Level 2 Est. Patient 14:39:48 CDT Ramos Myers MD [facility] CPT-85022 Level 3 Est. Patient 10:13:26 ARTS EDUCATION TEACHER Ramos Myers MD [facility] Procedures Code Procedure Name Date Entry Date Standard Description CPT-41550 Cystoscopy 19:01:42 CDT CPT-24043 Abd single AP View - XRAY USE ONLY 11:35:07 CDT CPT-26594 Postop F/U Visit 10:30:43 CDT CPT-A4357 Overnight urinary bag 10:24:50 CDT CPT-A4340 Indwell urin cath coude 10:24:50 CDT CPT-71316 Insert temp indwelling bld cath comp 10:24:50 CDT 01/14 CPT-A4340 Indwell urin cath coude 15:42:37 CDT CPT-14179 Postop F/U Visit 20:56:46 CDT CPT-56039 Aspiration hydrocele 15:23:51 ARTS EDUCATION TEACHER CPT-LR Lesion Removal 14:01:01 CDT CPT-LR Lesion Removal 16:14:11 CDT CPT-18311 Postop F/U Visit 15:07:25 ARTS EDUCATION TEACHER
--- OUTSIDE RECORDS SUMMARY | 2017-10-23 00:04 | XMS REPORT | Clinical Summary ---
Author Author Admin, NUZHAT Organization [facility] Address Unknown Phone Unavailable Allergies, Adverse [...] Coronary atherosclerosis of unspecified type of vessel, atka or graft HYPERTENSION 401.9 Active SHASTA Rosenberg [...] by mouth daily as needed TRAMADOL HCL 15133218479 No Longer Active Mukund Rivera MD Active AMLODIPINE BESYLATE 10 MG ORAL TABLET 1 tablet by mouth daily AMLODIPINE BESYLATE 49422442235 No Longer Active Mukund Rivera MD Active SIMVASTATIN 20 MG ORAL TABLET 1 tab by mouth daily SIMVASTATIN 64450467223 No Longer Active Mukund Rivera MD Active PLAVIX 75 MG ORAL TABLET 1 tab by mouth daily CLOPIDOGREL BISULFATE 73093064329 No Longer Active Mukund Rivera MD Active HYDROXYCHLOROQUINE SULFATE 200 MG ORAL TABLET by mouth twice a day HYDROXYCHLOROQUINE SULFATE 91376988676 No Longer Active Mukund Rivera MD Active CIPRO 500 MG ORAL TABLET 1 tablet two times daily CIPROFLOXACIN HCL 35975121496 No Longer Active Mukund Rivera MD Active OMEPRAZOLE 20 MG ORAL CAPSULE DELAYED RELEASE 1 tablet by mouth daily, as needed OMEPRAZOLE 17232957944 No Longer Active Mukund Rivera MD Active OREILLY [facility] ORAL CAPSULE Take one by mouth daily PROBIOTIC PRODUCT 57979385613 Active Ramos Myers MD Active KLOR-CON 10 10 MEQ ORAL TABLET EXTENDED RELEASE Take one by mouth daily 05/31 POTASSIUM CHLORIDE 96418206403 Active Ramos Myers MD Active FUROSEMIDE 20 MG ORAL TABLET 1 tablet by mouth daily FUROSEMIDE 83784294152 Active Ramos Myers MD Active METHOTREXATE 2.5 MG ORAL TABLET 6 tabs once a week METHOTREXATE SODIUM 22489395192 Active Ramos Myers MD Active DICLOFENAC SODIUM 75 MG ORAL TABLET DELAYED RELEASE Take one by mouth daily as needed DICLOFENAC SODIUM 74480043142 No Longer Active Ramos Myers MD Active SIMVASTATIN 20 MG ORAL TABLET 1 tab daily at bedtime SIMVASTATIN 36357090848 No Longer Active Ramos Myers MD Active EQL [id number]-KXVHEISQG-LLQ 500-400-166 MG ORAL TABLET Take one by mouth daily QCAEXGKDMZV-[id number]-LIZ 72032254077 Active Ramos Myers MD Active CALCIUM CARBONATE 1500 (600 Ca) MG ORAL TABLET Take one by mouth daily 11/29 CALCIUM CARBONATE 40407904357 Active Ramos Myers MD Active B-12 1000 MCG ORAL TABLET EXTENDED RELEASE Take one by mouth daily CYANOCOBALAMIN 44689044628 Active Ramos Myers MD Active VITAMIN B-6 100 MG ORAL TABLET Take one by mouth daily PYRIDOXINE HCL 78120812341 Active Ramos Myers MD Active ASPIRIN 81 MG ORAL TABLET 1 tablet by mouth daily ASPIRIN 57841212065 Active Ramos Myers MD Active FOLIC ACID 1 MG ORAL TABLET Take one by mouth daily FOLIC ACID 74866239592 Active Ramos Myers MD Active HYDROCHLOROTHIAZIDE 25 MG ORAL TABLET 1 tablet by mouth daily HYDROCHLOROTHIAZIDE 24424592413 Active Ramos Myers MD Active METOPROLOL SUCCINATE ER 25 MG ORAL TABLET EXTENDED RELEASE 24 HOUR Take one by mouth twice daily METOPROLOL SUCCINATE 31444306505 Active Ramos Myers MD Active SIMVASTATIN 20 MG ORAL TABLET 1 tab daily at bedtime SIMVASTATIN 20 MG ORAL TABLET 203329 SIMVASTATIN Inactive DICLOFENAC SODIUM 75 MG ORAL TABLET DELAYED RELEASE Take one by mouth daily as needed DICLOFENAC SODIUM 75 MG ORAL TABLET DELAYED RELEASE 404161 DICLOFENAC SODIUM Inactive OMEPRAZOLE 20 MG ORAL CAPSULE DELAYED RELEASE 1 tablet by mouth daily, as needed OMEPRAZOLE 20 MG ORAL CAPSULE DELAYED RELEASE 326706 OMEPRAZOLE Inactive HYDROXYCHLOROQUINE SULFATE 200 MG ORAL TABLET by mouth twice a day HYDROXYCHLOROQUINE SULFATE 200 MG ORAL TABLET 555748 HYDROXYCHLOROQUINE SULFATE Inactive PLAVIX 75 MG ORAL TABLET 1 tab by mouth daily PLAVIX 75 MG ORAL TABLET 553195 CLOPIDOGREL BISULFATE Inactive SIMVASTATIN 20 MG ORAL TABLET 1 tab by mouth daily SIMVASTATIN 20 MG ORAL TABLET 459440 SIMVASTATIN Inactive AMLODIPINE BESYLATE 10 MG ORAL TABLET 1 tablet by mouth daily AMLODIPINE BESYLATE 10 MG ORAL TABLET 208125 AMLODIPINE BESYLATE Inactive TRAMADOL HCL 50 MG ORAL TABLET Take one by mouth daily as needed TRAMADOL HCL 50 MG ORAL TABLET 967824 TRAMADOL HCL Inactive CIPRO 500 MG ORAL TABLET 1 tablet two times daily CIPRO 500 MG ORAL TABLET 311402 CIPROFLOXACIN HCL Inactive Advance Directives Directive Description [...] negative Encounters Code Encounter Date Provider Facility CPT-09710 Level 3 Est. Patient 10:36:44 NEW MEDIA STRATEGIST Mukund Rivera MD [facility] CPT-42877 Level 3 Est. Patient 19:01:41 CDT Mukund Rivera MD [facility] CPT-31222 Level 3 Est. Patient 23:28:14 CDT Mukund Rivera MD [facility] CPT-34758 Level 3 Est. Patient 14:56:41 NEW MEDIA STRATEGIST Mukund Rivera MD [facility] CPT-11931 Level 3 Est. Patient 16:05:06 NEW MEDIA STRATEGIST Mukund Rivera MD [facility] CPT-12279 Level 3 Est. Patient 14:06:16 NEW MEDIA STRATEGIST Mukund Rivera MD [facility] CPT-54216 Level 3 New Patient 14:46:52 NEW MEDIA STRATEGIST Mukund Rivera MD [facility] CPT-30083 Level 2 Est. Patient 14:01:01 CDT Ramos Myers MD [facility] CPT-74821 Level 2 Est. Patient 16:14:11 CDT Ramos Myers MD [facility] CPT-57075 Level 2 Est. Patient 14:39:48 CDT Ramos Myers MD [facility] CPT-51096 Level 3 Est. Patient 10:13:26 NEW MEDIA STRATEGIST Ramos Myers MD [facility] Procedures Code Procedure Name Date Entry Date Standard Description CPT-41397 Abd single AP View - XRAY USE ONLY 09:40:50 NEW MEDIA STRATEGIST CPT-12624 Postop F/U Visit 10:44:37 CDT CPT-25609 Abd single AP View - XRAY USE ONLY 09:47:35 CDT CPT-44993 Cystoscopy 19:01:42 CDT CPT-17709 Abd single AP View - XRAY USE ONLY 11:35:07 CDT CPT-13692 Postop F/U Visit 10:30:43 CDT CPT-A4357 Overnight urinary bag 10:24:50 CDT CPT-A4340 Indwell urin cath coude 10:24:50 CDT CPT-99818 Insert temp indwelling bld cath comp 10:24:50 CDT 01/14 CPT-A4340 Indwell urin cath coude 15:42:37 CDT CPT-38760 Postop F/U Visit 20:56:46 CDT CPT-29802 Aspiration hydrocele 15:23:51 NEW MEDIA STRATEGIST CPT-LR Lesion Removal 14:01:01 CDT CPT-LR Lesion Removal 16:14:11 CDT CPT-35456 Postop F/U Visit 15:07:25 NEW MEDIA STRATEGIST
--- OUTSIDE RECORDS SUMMARY | 2017-10-23 00:04 | XMS REPORT | Clinical Summary ---
Author Author Admin, NUZHAT Organization [facility] Address Unknown Phone Unavailable Allergies, Adverse Reactions, [...] Coronary atherosclerosis of unspecified type of vessel, chilkat or graft HYPERTENSION 401.9 Active SHASTA Rosenberg [...] by mouth daily as needed TRAMADOL HCL 82959526375 No Longer Active Mukund Rivera MD Active AMLODIPINE BESYLATE 10 MG TABS 1 tablet by mouth daily AMLODIPINE BESYLATE 32906935550 No Longer Active Mukund Rivera MD Active SIMVASTATIN 20 MG ORAL TABS 1 tab by mouth daily SIMVASTATIN 25769813997 No Longer Active Mukund Rivera MD Active PLAVIX 75 MG ORAL TABS 1 tab by mouth daily CLOPIDOGREL BISULFATE 75009575279 No Longer Active Mukund Rivera MD Active HYDROXYCHLOROQUINE SULFATE 200 MG TABS by mouth twice a day 12/15 HYDROXYCHLOROQUINE SULFATE 09063178617 No Longer Active Mukund Rivera MD Active CIPRO 500 MG TAB 1 tablet two times daily CIPROFLOXACIN HCL 01331653533 No Longer Active Mukund Rivera MD Active OMEPRAZOLE 20 MG CPDR 1 tablet by mouth daily, as needed OMEPRAZOLE 40004395712 No Longer Active J Cholo Rivera MD Active OREILLY [facility] CAPS Take one by mouth daily PROBIOTIC PRODUCT 67097169373 Active Ramos Myers MD Active KLOR-CON 10 10 MEQ CR-TABS Take one by mouth daily POTASSIUM CHLORIDE 67089991008 Active Ramos Myers MD Active FUROSEMIDE 20 MG TAB 1 tablet by mouth daily FUROSEMIDE 71085455486 Active Ramos Myers MD Active METHOTREXATE 2.5 MG TABS 6 tabs once a week METHOTREXATE SODIUM 36012308679 Active Ramos Myers MD Active DICLOFENAC SODIUM 75 MG TBEC Take one by mouth daily as needed DICLOFENAC SODIUM 20527071178 No Longer Active Ramos Myers MD Active SIMVASTATIN 20 MG TABS 1 tab daily at bedtime SIMVASTATIN 74013533004 No Longer Active Ramos Myers MD Active EQL [id number]-MDLHPLWWJ-MUH 500-400-166 MG TABS Take one by mouth daily TDCFNCHHRSV-ISPQVPRLJOJ-VGT 24234208211 Active Ramos Myers MD Active CALCIUM 1500 MG TAB Take one by mouth daily CALCIUM CARBONATE 84353107369 Active Ramos Myers MD Active B-12 1000 MCG CR-TABS Take one by mouth daily CYANOCOBALAMIN 80575196777 Active Ramos Myers MD Active VITAMIN B-6 100 MG TABS Take one by mouth daily PYRIDOXINE HCL 39223742510 Active Ramos Myers MD Active ASPIRIN 81 MG TAB 1 tablet by mouth daily ASPIRIN 78069259321 Active Ramos Myers MD Active FOLIC ACID 1 MG TABS Take one by mouth daily FOLIC ACID 92420174348 Active Ramos Myers MD Active HYDROCHLOROTHIAZIDE 25 MG TABS 1 tablet by mouth daily HYDROCHLOROTHIAZIDE 28270033003 Active Ramos Myers MD Active METOPROLOL SUCCINATE ER 25 MG [id number] Take one by mouth twice daily METOPROLOL SUCCINATE 56494613052 Active Ramos Myers MD Active SIMVASTATIN 20 MG TABS 1 tab daily at bedtime SIMVASTATIN 20 MG TABS 205493 SIMVASTATIN Inactive DICLOFENAC SODIUM 75 MG TBEC Take one by mouth daily as needed DICLOFENAC SODIUM 75 MG TBEC 695284 DICLOFENAC SODIUM Inactive OMEPRAZOLE 20 MG CPDR 1 tablet by mouth daily, as needed OMEPRAZOLE 20 MG CPDR 981528 OMEPRAZOLE Inactive HYDROXYCHLOROQUINE SULFATE 200 MG TABS by mouth twice a day 12/15 HYDROXYCHLOROQUINE SULFATE 200 MG TABS 609028 HYDROXYCHLOROQUINE SULFATE Inactive PLAVIX 75 MG ORAL TABS 1 tab by mouth daily PLAVIX 75 MG ORAL TABS 421608 CLOPIDOGREL BISULFATE Inactive SIMVASTATIN 20 MG ORAL TABS 1 tab by mouth daily SIMVASTATIN 20 MG ORAL TABS 076308 SIMVASTATIN Inactive AMLODIPINE BESYLATE 10 MG TABS 1 tablet by mouth daily AMLODIPINE BESYLATE 10 MG TABS 459746 AMLODIPINE BESYLATE Inactive TRAMADOL HCL 50 MG TABS Take one by mouth daily as needed TRAMADOL HCL 50 MG TABS 304619 TRAMADOL HCL Inactive CIPRO 500 MG TAB 1 tablet two times daily CIPRO 500 MG TAB 440166 CIPROFLOXACIN HCL Inactive Advance Directives Directive Description [...] negative Encounters Code Encounter Date Provider Facility CPT-02655 Level 3 Est. Patient 19:01:41 CDT Mukund Rivera MD [facility] CPT-86737 Level 3 Est. Patient 23:28:14 CDT Mukund Rivera MD [facility] CPT-77276 Level 3 Est. Patient 14:56:41 VENEER DRIER Mukund Rivera MD [facility] CPT-75569 Level 3 Est. Patient 16:05:06 VENEER DRIER Mukund Rivera MD [facility] CPT-01036 Level 3 Est. Patient 14:06:16 VENEER DRIER Mukund Rivera MD [facility] CPT-83645 Level 3 New Patient 14:46:52 VENEER DRIER Mukund Rivera MD [facility] CPT-81890 Level 2 Est. Patient 14:01:01 CDT Ramos Myers MD [facility] CPT-26630 Level 2 Est. Patient 16:14:11 CDT Ramos Myers MD [facility] CPT-41875 Level 2 Est. Patient 14:39:48 CDT Ramos Myers MD [facility] CPT-18999 Level 3 Est. Patient 10:13:26 VENEER DRIER Ramos Myers MD [facility] Procedures Code Procedure Name Date Entry Date Standard Description CPT-21911 Abd single AP View - XRAY USE ONLY 09:40:50 VENEER DRIER CPT-02863 Postop F/U Visit 10:44:37 CDT CPT-08105 Abd single AP View - XRAY USE ONLY 09:47:35 CDT CPT-17989 Cystoscopy 19:01:42 CDT CPT-37999 Abd single AP View - XRAY USE ONLY 11:35:07 CDT CPT-64505 Postop F/U Visit 10:30:43 CDT CPT-A4357 Overnight urinary bag 10:24:50 CDT CPT-A4340 Indwell urin cath coude 10:24:50 CDT CPT-91062 Insert temp indwelling bld cath comp 10:24:50 CDT 01/14 CPT-A4340 Indwell urin cath coude 15:42:37 CDT CPT-84815 Postop F/U Visit 20:56:46 CDT CPT-49398 Aspiration hydrocele 15:23:51 VENEER DRIER CPT-LR Lesion Removal 14:01:01 CDT CPT-LR Lesion Removal 16:14:11 CDT CPT-47991 Postop F/U Visit 15:07:25 VENEER DRIER
--- OUTSIDE RECORDS SUMMARY | 2017-10-23 00:04 | XMS REPORT ---
Author Author [facility] Medical Staff Organization [facility] Address [address] [place], [place] [address] Phone [phone] Care Team Providers Care Structural Shop Helper Name Role Phone BRUNILDA BENAVIDES MD, PP [phone] Summary purpose TRANSITION OF CARE AUTO GENERATION [...] tests and/or laboratory data RESULTS Radiology Results [id number]:34:00 MYOCARDIAL SPECT MULT PACs Image DATE OF EXAM: Mar 10 2016 [id number] SPECT MULTIPLE : RADIOLOGY REPORT DATE OF [...] aneurysm on today's study. S MD AFSHAN Nguyen/la03/10/2016 13:41:00 / 03/10/2016 13:52:22 cc:Dr. Stevo Benavides This document has been electronically Signed by: On: History of procedures No procedures recorded for this patient visit. Functional status Functional Status Finding Observation Time IV Site Location Left hand :38 IV Type peripheral :38 IV Site Information discontinued :36 IV Site Start Attmpt 2 times :38 IV Site Boyd 22 :38 IV Site Appearance WNL :36 IV Site Color clear :36 IV Site Patent yes :36 Dressing Type gauze :36 Nursing Note Second set of scans completed. Verbal and written discharge instructions given. Patient voices understanding. Patient also given a to go bag with juice and peanut butter crackers. Chest pain remained at a "0". Patient ambulated from unit in good condition. [id number]:03 Vital signs Type Value Date Height 74inches :44 Weight 180LB :44 Social history No Social History or smoking status observations were recorded for this visit. ( Unknown if ever smoked.) Treatment Plan No treatment plan text is available for this visit. Hospital discharge instructions Discharge Date/Time 03/10/2016 1003 Accompanied By Kathy Relationship spouse/signif other Dismissal Condition good Disposition on DC other (specify) Valuables yes Valuable Type other (specify) Comment: corie Amezcua Returned T patient DC Inst/Educ Give yes
--- OUTSIDE RECORDS SUMMARY | 2017-10-23 00:05 | XMS REPORT ---
Author Author [facility] Medical Staff Organization [facility] Address [address] [place], [place] [address] Phone [phone] Care Team Providers Care Supervisor Real Estate Office Name Role Phone BRUNILDA BENAVIDES MD, PP [phone] Summary purpose TRANSITION OF CARE AUTO GENERATION [...] diagnostic tests and/or laboratory data RESULTS Chemistry [id number]:50:00 Result Normal Range Units Sodium 142 134-145 mEq/l Potassium 3.9 3.5-5.1 mEq/l Chloride 106 98-107 mEq/l CO2 H 32.1 22-28 mEq/l Glucose 100 70-105 mg/dl BUN 16 7-18 mg/dl Creatinine 1.12 0.6-1.3 mg/dl Calcium 8.8 8.4-10.2 mg/dl TP - Total Protein 6.3 6.0-8.3 g/dl Albumin 3.5 3.5-5 g/dl Bilirubin - Total 0.6 0.1-1.0 mg/dl AST 30 10-42 IU/L ALT 46 12-65 IU/L ALP 83 39-107 IU/L Osmolality 284.4 280-300 mOsm/L Albumin/Globulin Ratio 1.2 0-8 Anion GAP L 3.9 8-16 BUN/Creatinine Ratio 14.3 10-20 Estimated GFR 64 >=60 mL/min/1.7 C-Reactive Protein < 0.2 0-1 mg/dl Hematology [id number]:50:00 Result Normal Range Units WBC 8.3 4.8-10.8 103/uL RBC 4.8 4.7-6.1 106/uL HGB 14.8 13.0-18.0 g/dl HCT 45.2 41.9-52.0 % MCV H 94.8 80-94 FL MCH 31.0 27-31 pg MCHC L 32.7 33-37 g/dl RDW 13.8 11.5-15.5 % PLT 181 130-400 103/uL MPV 9.9 7.3-10.4 FL Hematology - Other (Misc) [id number]:50:00 Result Normal Range Units Sed Rate 4 0-20 Radiology Results [id number]:50:00 Result Normal Range Units MPV 9.9 7.3-10.4 FL History of procedures Procedure Code Code Type Description Date Performed Performing Physician [id number] CPT-4 COMPLETE CBC AUTOMATED 01-30-2016 DONOVAN MERINOADIYA 22447 CPT-4 COMPREHEN METABOLIC PANEL 01-30-2016 DONOVAN MERINOADIYA 00875 CPT-4 RBC SED RATE NONAUTOMATED 01-30-2016 DONOVAN MERINOADIYA 35563 CPT-4 C-REACTIVE PROTEIN 01-30-2016 DONOVAN MERINOSONYARON Functional status No functional or cognitive status [...]
--- OUTSIDE RECORDS SUMMARY | 2017-10-23 00:05 | XMS REPORT | Clinical Summary ---
Author Author Admin, NUZHAT Organization [facility] Address Unknown Phone Unavailable Allergies, Adverse [...] Coronary atherosclerosis of unspecified type of vessel, [place] or graft HYPERTENSION 401.9 Active SHASTA Rosenberg [...] unspecified Spermatocele Active Mukund Rivera MD Spermatocele Medication List Medication Instructions Start Date Stop Date Generic Name NDC Status Provider Patient Instruction HYDROXYCHLOROQUINE SULFATE 200 MG TABS by mouth twice a day 12/15 HYDROXYCHLOROQUINE SULFATE 82540277322 No Longer Active Mukund Rivera MD Active CIPRO 500 MG TAB 1 tablet two times daily CIPROFLOXACIN HCL 46898833460 No Longer Active Mukund Rivera MD Active PLAVIX 75 MG ORAL TABS 1 tab by mouth daily CLOPIDOGREL BISULFATE 09777923182 Active Mukund Rivera MD Active SIMVASTATIN 20 MG ORAL TABS 1 tab by mouth daily SIMVASTATIN 15680773906 Active Mukund Rivera MD Active OMEPRAZOLE 20 MG CPDR 1 tablet by mouth daily, as needed OMEPRAZOLE 05712901510 No Longer Active Mukund Rivera MD Active [employer] Take one by mouth daily PROBIOTIC PRODUCT 07151221117 Active Ramos Myers MD Active KLOR-CON 10 10 MEQ CR-TABS Take one by mouth daily POTASSIUM CHLORIDE 77290523231 Active Ramos Myers MD Active FUROSEMIDE 20 MG TAB 1 tablet by mouth daily FUROSEMIDE 64079379914 Active Ramos Myers MD Active METHOTREXATE 2.5 MG TABS 6 tabs once a week METHOTREXATE SODIUM 27462445621 Active Ramos Myers MD Active DICLOFENAC SODIUM 75 MG TBEC Take one by mouth daily as needed DICLOFENAC SODIUM 95472223268 No Longer Active Ramos Myers MD Active SIMVASTATIN 20 MG TABS 1 tab daily at bedtime SIMVASTATIN 82336304449 No Longer Active Ramos Myers MD Active AMLODIPINE BESYLATE 10 MG TABS 1 tablet by mouth daily AMLODIPINE BESYLATE 96527584845 Active Ramos Myers MD Active EQL [id number]-QIMOKTDPF-WXY 500-400-166 MG TABS Take one by mouth daily CEFHVIAIBEQ-PZDRLTQLUYU-DXL 36906106586 Active Ramos Myers MD Active CALCIUM 1500 MG TAB Take one by mouth daily CALCIUM CARBONATE 40491897751 Active Ramos Myers MD Active B-12 1000 MCG CR-TABS Take one by mouth daily CYANOCOBALAMIN 84087631350 Active Ramos Myers MD Active VITAMIN B-6 100 MG TABS Take one by mouth daily PYRIDOXINE HCL 55046018056 Active Ramos Myers MD Active ASPIRIN 81 MG TAB 1 tablet by mouth daily ASPIRIN 60366038433 Active Ramos Myers MD Active TRAMADOL HCL 50 MG TABS Take one by mouth daily as needed TRAMADOL HCL 31320102778 Active Ramos Myers MD Active FOLIC ACID 1 MG TABS Take one by mouth daily FOLIC ACID 48590445534 Active Ramos Myers MD Active HYDROCHLOROTHIAZIDE 25 MG TABS 1 tablet by mouth daily HYDROCHLOROTHIAZIDE 01350124548 Active Ramos Myers MD Active METOPROLOL SUCCINATE ER 25 MG [id number] Take one by mouth twice daily METOPROLOL SUCCINATE 07101729249 Active Ramos Myers MD Active SIMVASTATIN 20 MG TABS 1 tab daily at bedtime SIMVASTATIN 20 MG TABS 700991 SIMVASTATIN Inactive DICLOFENAC SODIUM 75 MG TBEC Take one by mouth daily as needed DICLOFENAC SODIUM 75 MG TBEC 441643 DICLOFENAC SODIUM Inactive OMEPRAZOLE 20 MG CPDR 1 tablet by mouth daily, as needed OMEPRAZOLE 20 MG CPDR 919904 OMEPRAZOLE Inactive HYDROXYCHLOROQUINE SULFATE 200 MG TABS by mouth twice a day 12/15 HYDROXYCHLOROQUINE SULFATE 200 MG TABS 467596 HYDROXYCHLOROQUINE SULFATE Inactive CIPRO 500 MG TAB 1 tablet two times daily CIPRO 500 MG TAB 768032 CIPROFLOXACIN HCL Inactive Advance Directives Directive Description [...] Measured Encounters Code Encounter Date Provider Facility CPT-70101 Level 3 Est. Patient 14:56:41 BILLET INSPECTOR Mukund Rivera MD [facility] CPT-92433 Level 3 Est. Patient 16:05:06 BILLET INSPECTOR Mukund Rivera MD [facility] CPT-64181 Level 3 Est. Patient 14:06:16 BILLET INSPECTOR Mukund Rivera MD [facility] CPT-05970 Level 3 New Patient 14:46:52 BILLET INSPECTOR Mukund Rivera MD [facility] CPT-29581 Level 2 Est. Patient 14:01:01 CDT Ramos Myers MD [facility] CPT-50955 Level 2 Est. Patient 16:14:11 CDT Ramos Myers MD [facility] CPT-57860 Level 2 Est. Patient 14:39:48 CDT Ramos Myers MD [facility] CPT-88316 Level 3 Est. Patient 10:13:26 BILLET INSPECTOR Ramos Myers MD [facility] Procedures Code Procedure Name Date Entry Date Standard Description CPT-91028 Postop F/U Visit 20:56:46 CDT CPT-14231 Aspiration hydrocele 15:23:51 BILLET INSPECTOR CPT-LR Lesion Removal 14:01:01 CDT CPT-LR Lesion Removal 16:14:11 CDT CPT-94589 Postop F/U Visit 15:07:25 BILLET INSPECTOR
--- OUTSIDE RECORDS SUMMARY | 2017-10-23 00:05 | XMS REPORT | Clinical Summary ---
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 [...] by mouth daily as needed TRAMADOL HCL 59801493462 No Longer Active Mukund Rivera MD Active AMLODIPINE BESYLATE 10 MG TABS 1 tablet by mouth daily AMLODIPINE BESYLATE 85103706808 No Longer Active Mukund Rivera MD Active SIMVASTATIN 20 MG ORAL TABS 1 tab by mouth daily SIMVASTATIN 54117870485 No Longer Active Mukund Rivera MD Active PLAVIX 75 MG ORAL TABS 1 tab by mouth daily CLOPIDOGREL BISULFATE 23241171390 No Longer Active Mukund Rivera MD Active HYDROXYCHLOROQUINE SULFATE 200 MG TABS by mouth twice a day 12/15 HYDROXYCHLOROQUINE SULFATE 90782172519 No Longer Active Mukund Rivera MD Active CIPRO 500 MG TAB 1 tablet two times daily CIPROFLOXACIN HCL 74514036329 No Longer Active Mukund Rivera MD Active OMEPRAZOLE 20 MG CPDR 1 tablet by mouth daily, as needed OMEPRAZOLE 56496917114 No Longer Active Mukund Rivera MD Active [employer] Take one by mouth daily PROBIOTIC PRODUCT 50032798110 Active Raoms Myers MD Active KLOR-CON 10 10 MEQ CR-TABS Take one by mouth daily POTASSIUM CHLORIDE 60617473925 Active Ramos Myers MD Active FUROSEMIDE 20 MG TAB 1 tablet by mouth daily FUROSEMIDE 11478067423 Active Ramos Myers MD Active METHOTREXATE 2.5 MG TABS 6 tabs once a week METHOTREXATE SODIUM 13159153208 Active Ramos Myers MD Active DICLOFENAC SODIUM 75 MG TBEC Take one by mouth daily as needed DICLOFENAC SODIUM 53772969420 No Longer Active Ramos Myers MD Active SIMVASTATIN 20 MG TABS 1 tab daily at bedtime SIMVASTATIN 06503073596 No Longer Active Ramos Myers MD Active EQL ADUNZZHRHWZ-OERWJGITR-ISY 500-400-166 MG TABS Take one by mouth daily [id number] 01357398193 Active Ramos Myers MD Active CALCIUM 1500 MG TAB Take one by mouth daily CALCIUM CARBONATE 50413370044 Active Ramos Myers MD Active B-12 1000 MCG CR-TABS Take one by mouth daily CYANOCOBALAMIN 92373667374 Active Ramos Myers MD Active VITAMIN B-6 100 MG TABS Take one by mouth daily PYRIDOXINE HCL 51494493207 Active Ramos Myers MD Active ASPIRIN 81 MG TAB 1 tablet by mouth daily ASPIRIN 22999007528 Active Ramos Myers MD Active FOLIC ACID 1 MG TABS Take one by mouth daily FOLIC ACID 37707262920 Active Ramos Myers MD Active HYDROCHLOROTHIAZIDE 25 MG TABS 1 tablet by mouth daily HYDROCHLOROTHIAZIDE 39590237948 Active Ramos Myers MD Active METOPROLOL SUCCINATE ER 25 MG [id number] Take one by mouth twice daily METOPROLOL SUCCINATE 26928476095 Active Ramos Myers MD Active SIMVASTATIN 20 MG TABS 1 tab daily at bedtime SIMVASTATIN 20 MG TABS 477656 SIMVASTATIN Inactive DICLOFENAC SODIUM 75 MG TBEC Take one by mouth daily as needed DICLOFENAC SODIUM 75 MG TBEC 817448 DICLOFENAC SODIUM Inactive OMEPRAZOLE 20 MG CPDR 1 tablet by mouth daily, as needed OMEPRAZOLE 20 MG CPDR 607742 OMEPRAZOLE Inactive HYDROXYCHLOROQUINE SULFATE 200 MG TABS by mouth twice a day 12/15 HYDROXYCHLOROQUINE SULFATE 200 MG TABS 226341 HYDROXYCHLOROQUINE SULFATE Inactive PLAVIX 75 MG ORAL TABS 1 tab by mouth daily PLAVIX 75 MG ORAL TABS 638862 CLOPIDOGREL BISULFATE Inactive SIMVASTATIN 20 MG ORAL TABS 1 tab by mouth daily SIMVASTATIN 20 MG ORAL TABS 629398 SIMVASTATIN Inactive AMLODIPINE BESYLATE 10 MG TABS 1 tablet by mouth daily AMLODIPINE BESYLATE 10 MG TABS 579541 AMLODIPINE BESYLATE Inactive TRAMADOL HCL 50 MG TABS Take one by mouth daily as needed TRAMADOL HCL 50 MG TABS 106203 TRAMADOL HCL Inactive CIPRO 500 MG TAB 1 tablet two times daily CIPRO 500 MG TAB 784081 CIPROFLOXACIN HCL Inactive Advance Directives Directive Description [...] negative Encounters Code Encounter Date Provider Facility CPT-83768 Level 3 Est. Patient 19:01:41 KARLIE Rivera MD [facility] CPT-71258 Level 3 Est. Patient 23:28:14 CDT Mukund Rivera MD [facility] CPT-96599 Level 3 Est. Patient 14:56:41 BARGE HAND Mukund Rivera MD [facility] CPT-47048 Level 3 Est. Patient 16:05:06 BARGE HAND Mukund Rivera MD [facility] CPT-84850 Level 3 Est. Patient 14:06:16 BARGE HAND Mukund Rivera MD [facility] CPT-59957 Level 3 New Patient 14:46:52 BARGE HAND Mukund Rivera MD [facility] CPT-99276 Level 2 Est. Patient 14:01:01 CDT Ramos Myers MD [facility] CPT-72524 Level 2 Est. Patient 16:14:11 CDT Ramos Myers MD [facility] CPT-71881 Level 2 Est. Patient 14:39:48 CDT Ramos Myers MD [facility] CPT-56071 Level 3 Est. Patient 10:13:26 BARGE HAND Ramos Myers MD [facility] Procedures Code Procedure Name Date Entry Date Standard Description CPT-92346 Cystoscopy 19:01:42 CDT CPT-41855 Abd single AP View - XRAY USE ONLY 11:35:07 CDT CPT-73436 Postop F/U Visit 10:30:43 CDT CPT-A4357 Overnight urinary bag 10:24:50 CDT CPT-A4340 Indwell urin cath coude 10:24:50 CDT CPT-68795 Insert temp indwelling bld cath comp 10:24:50 CDT 01/14 CPT-A4340 Indwell urin cath coude 15:42:37 CDT CPT-50089 Postop F/U Visit 20:56:46 CDT CPT-88279 Aspiration hydrocele 15:23:51 BARGE HAND CPT-LR Lesion Removal 14:01:01 CDT CPT-LR Lesion Removal 16:14:11 CDT CPT-61185 Postop F/U Visit 15:07:25 BARGE HAND
--- OUTSIDE RECORDS SUMMARY | 2017-10-23 00:05 | XMS REPORT ---
Author Author [facility] Medical Staff Organization [facility] Address [address] [place] [id number] Phone [phone] Care Team Providers Care Neon Sign Erector Name Role Phone BRUNILDA BENAVIDES MD [phone] Summary purpose TRANSITION OF CARE AUTO GENERATION [...] tests and/or laboratory data RESULTS Radiology Results [id number]:00 Chest X-Ray - 2 View PACs Image [...] or change from 02/04/2015. Filipe Austin DO /or 01/16/2016 13:44:01/16/2016 14:27:42 cc:Dr. Brunilda Benavides This [...] or change from 02/04/2015. Filipe Austin DO /or 01/16/2016 13:44:01/16/2016 14:27:42 cc:Dr. Brunilda Benavides This document has been electronically Signed by: FILIPE AUSTIN DO On: Jan 16 20168:04P Result Amended on 2016-01-16 at 20:04:24. Previous status was NM. History of procedures No procedures recorded for [...]
--- OUTSIDE RECORDS SUMMARY | 2017-10-23 00:05 | XMS REPORT ---
Author Author [facility] Medical Staff Organization [facility] [employer] [facility] Address [address] [place] [id number] Phone [phone] Summary purpose TRANSITION OF CARE AUTO GENERATION [...] tests and/or laboratory data RESULTS Radiology Results [id number] DUP ART LMT PACs Image DATE OF EXAM: 2014 [id number] ART DUPLEX LOW EXT LTD- RIGHT: RADIOLOGY REPORT DATE OF SERVICE: 08/23/15 HISTORY: Right groin pain, right inguinal lump, heart catheterization 08/19/2015, evaluate for pseudoaneurysm LIMITED DOPPLER OF THE RIGHT LOWER EXTREMITY 1100 HOURS The right groin was evaluated with high resolution real time imaging, pulsed and color flow Doppler. The common femoral artery is patent with normal triphasic flow. There is no pseudoaneurysm. The common femoral vein and femoral vein are patent with normal flow and normal compressibility. There is no thrombus. There is mild edema in the superficial tissues of the right groin. IMPRESSION: No evidence of pseudoaneurysm or other vascular complication. MD JULIEN Patterson/vt08/23/2015 12:19:00 / 08/23/2015 12:54:42 cc:Dr. Denisse Aguayo This document has been electronically Signed by: On: DATE OF EXAM: 2014 [id number] ART DUPLEX LOW EXT LTD- RIGHT: RADIOLOGY REPORT DATE OF SERVICE: 08/23/15 HISTORY: Right groin pain, right inguinal lump, heart catheterization 08/19/2015, evaluate for pseudoaneurysm LIMITED DOPPLER OF THE RIGHT LOWER EXTREMITY 1100 HOURS The right groin was evaluated with high resolution real time imaging, pulsed and color flow Doppler. The common femoral artery is patent with normal triphasic flow. There is no pseudoaneurysm. The common femoral vein and femoral vein are patent with normal flow and normal compressibility. There is no thrombus. There is mild edema in the superficial tissues of the right groin. IMPRESSION: No evidence of pseudoaneurysm or other vascular complication. MD JULIEN Patterson/vt08/23/2015 12:19:00 / 08/23/2015 12:54:42 cc:Dr. Denisse Aguayo This document has been electronically Signed by: MIKE LOU MD On: 20142:44P Result Amended on 2015-08-23 at 14:44:41. Previous status was ID. History of procedures No procedures recorded for [...]
--- OUTSIDE RECORDS SUMMARY | 2017-10-23 00:06 | XMS REPORT ---
Author Author [facility] Medical Staff Organization [facility] Address [address] [place] [id number] Phone [phone] Summary purpose TRANSITION OF CARE AUTO GENERATION [...] tests and/or laboratory data RESULTS Radiology Results [id number]:00 DUP ART LMT PACs Image DATE OF EXAM: 2014 [id number] ART DUPLEX LOW EXT LTD- RIGHT: RADIOLOGY REPORT DATE OF SERVICE: 09/18/15 HISTORY: Recent heart catheterization, swelling of groin and testicle LIMITED DOPPLER OF THE RIGHT LOWER EXTREMITY 1100 HOURS The groin was evaluated with high resolution real time imaging, pulsed and color flow Doppler. Comparison is made with 08/23/2015. There is partially calcified atherosclerotic plaque in the common femoral artery and proximal right superficial femoral artery. Biphasic flow is present. There is no evidence of pseudoaneurysm or significant hematoma. The common femoral vein is patent. IMPRESSION: Atherosclerotic femoral artery changes. No evidence of pseudoaneurysm or definite hematoma. MD JULIEN Patterson/sonia09/18/2015 11:44:00 / 09/18/2015 11:52:46 cc:Dr. Stevo Santos This document has been electronically Signed by: On: DATE OF EXAM: 2014 [id number] ART DUPLEX LOW EXT LTD- RIGHT: RADIOLOGY REPORT DATE OF SERVICE: 09/18/15 HISTORY: Recent heart catheterization, swelling of groin and testicle LIMITED DOPPLER OF THE RIGHT LOWER EXTREMITY 1100 HOURS The groin was evaluated with high resolution real time imaging, pulsed and color flow Doppler. Comparison is made with 08/23/2015. There is partially calcified atherosclerotic plaque in the common femoral artery and proximal right superficial femoral artery. Biphasic flow is present. There is no evidence of pseudoaneurysm or significant hematoma. The common femoral vein is patent. IMPRESSION: Atherosclerotic femoral artery changes. No evidence of pseudoaneurysm or definite hematoma. MD JULIEN Patterson/nd09/18/2015 11:44:00 / 09/18/2015 11:52:46 cc:Dr. Stevo Santos This document has been electronically Signed by: MIKE LOU MD On: :11P Result Amended on 2015-09-18 at 14:11:14. Previous status was HI. History of procedures No procedures recorded for [...]
--- OUTSIDE RECORDS SUMMARY | 2017-10-23 00:06 | XMS REPORT | Clinical Summary ---
Author Author Admin, E Organization [facility] Address Unknown Phone Unavailable Allergies, [...] Coronary atherosclerosis of unspecified type of vessel, [place] or graft HYPERTENSION 401.9 Active SHASTA Rosenberg [...] by mouth daily as needed TRAMADOL HCL 30915535987 No Longer Active Mukund Rivera MD Active AMLODIPINE BESYLATE 10 MG TABS 1 tablet by mouth daily AMLODIPINE BESYLATE 49575928082 No Longer Active Mukund Rivera MD Active SIMVASTATIN 20 MG ORAL TABS 1 tab by mouth daily SIMVASTATIN 45687134337 No Longer Active Mukund Rivera MD Active PLAVIX 75 MG ORAL TABS 1 tab by mouth daily CLOPIDOGREL BISULFATE 02204220570 No Longer Active Mukund Rivera MD Active HYDROXYCHLOROQUINE SULFATE 200 MG TABS by mouth twice a day 12/15 HYDROXYCHLOROQUINE SULFATE 07313376607 No Longer Active Mukund Rivera MD Active CIPRO 500 MG TAB 1 tablet two times daily CIPROFLOXACIN HCL 99798467070 No Longer Active Mukund Rivera MD Active OMEPRAZOLE 20 MG CPDR 1 tablet by mouth daily, as needed OMEPRAZOLE 50365065559 No Longer Active Mukund Rivera MD Active [employer] Take one by mouth daily PROBIOTIC PRODUCT 00704567261 Active Ramos Myers MD Active KLOR-CON 10 10 MEQ CR-TABS Take one by mouth daily POTASSIUM CHLORIDE 61915545132 Active Ramos Myers MD Active FUROSEMIDE 20 MG TAB 1 tablet by mouth daily FUROSEMIDE 91413348767 Active Ramos Myers MD Active METHOTREXATE 2.5 MG TABS 6 tabs once a week METHOTREXATE SODIUM 28131778394 Active Ramos Myers MD Active DICLOFENAC SODIUM 75 MG TBEC Take one by mouth daily as needed DICLOFENAC SODIUM 20423617961 No Longer Active Ramos Myers MD Active SIMVASTATIN 20 MG TABS 1 tab daily at bedtime SIMVASTATIN 96349741547 No Longer Active Ramos Myers MD Active EQL LTVNYFXXQCH-ADENMBPKT-OVB 500-400-166 MG TABS Take one by mouth daily AXWGKFBNZEP-RHYXJHIJDRD-DCU 67184101520 Active Ramos Myers MD Active CALCIUM 1500 MG TAB Take one by mouth daily CALCIUM CARBONATE 50737382752 Active Ramos Myers MD Active B-12 1000 MCG CR-TABS Take one by mouth daily CYANOCOBALAMIN 32794933061 Active Ramos Myers MD Active VITAMIN B-6 100 MG TABS Take one by mouth daily PYRIDOXINE HCL 27502663946 Active Ramos Myers MD Active ASPIRIN 81 MG TAB 1 tablet by mouth daily ASPIRIN 23305358594 Active Ramos Myers MD Active FOLIC ACID 1 MG TABS Take one by mouth daily FOLIC ACID 83110986603 Active Ramos Myers MD Active HYDROCHLOROTHIAZIDE 25 MG TABS 1 tablet by mouth daily HYDROCHLOROTHIAZIDE 26083964379 Active Ramos Myers MD Active METOPROLOL SUCCINATE ER 25 MG [id number]-JPA Take one by mouth twice daily METOPROLOL SUCCINATE 16307639824 Active Ramos Myers MD Active SIMVASTATIN 20 MG TABS 1 tab daily at bedtime SIMVASTATIN 20 MG TABS 805441 SIMVASTATIN Inactive DICLOFENAC SODIUM 75 MG TBEC Take one by mouth daily as needed DICLOFENAC SODIUM 75 MG TBEC 531350 DICLOFENAC SODIUM Inactive OMEPRAZOLE 20 MG CPDR 1 tablet by mouth daily, as needed OMEPRAZOLE 20 MG CPDR 391516 OMEPRAZOLE Inactive HYDROXYCHLOROQUINE SULFATE 200 MG TABS by mouth twice a day 12/15 HYDROXYCHLOROQUINE SULFATE 200 MG TABS 421383 HYDROXYCHLOROQUINE SULFATE Inactive PLAVIX 75 MG ORAL TABS 1 tab by mouth daily PLAVIX 75 MG ORAL TABS 961427 CLOPIDOGREL BISULFATE Inactive SIMVASTATIN 20 MG ORAL TABS 1 tab by mouth daily SIMVASTATIN 20 MG ORAL TABS 874542 SIMVASTATIN Inactive AMLODIPINE BESYLATE 10 MG TABS 1 tablet by mouth daily AMLODIPINE BESYLATE 10 MG TABS 335201 AMLODIPINE BESYLATE Inactive TRAMADOL HCL 50 MG TABS Take one by mouth daily as needed TRAMADOL HCL 50 MG TABS 255255 TRAMADOL HCL Inactive CIPRO 500 MG TAB 1 tablet two times daily CIPRO 500 MG TAB 363038 CIPROFLOXACIN HCL Inactive Advance Directives Directive Description [...] negative Encounters Code Encounter Date Provider Facility CPT-34861 Level 3 Est. Patient 19:01:41 KARLIE Rivera MD [facility] CPT-65438 Level 3 Est. Patient 23:28:14 CDT Mukund Rivera MD [facility] CPT-75118 Level 3 Est. Patient 14:56:41 SUPERVISOR RIDES Mukund Rivera MD [facility] CPT-00250 Level 3 Est. Patient 16:05:06 SUPERVISOR RIDES Mukund Rivera MD [facility] CPT-88424 Level 3 Est. Patient 14:06:16 SUPERVISOR RIDES Mukund Rivera MD [facility] CPT-51156 Level 3 New Patient 14:46:52 SUPERVISOR RIDES Mukund Rivera MD [facility] CPT-46207 Level 2 Est. Patient 14:01:01 CDT Ramos Myers MD [facility] CPT-28773 Level 2 Est. Patient 16:14:11 CDT Ramos Myers MD [facility] CPT-05220 Level 2 Est. Patient 14:39:48 CDT Ramos Myers MD [facility] CPT-21123 Level 3 Est. Patient 10:13:26 SUPERVISOR RIDES Ramos Myers MD [facility] Procedures Code Procedure Name Date Entry Date Standard Description CPT-62683 Cystoscopy 19:01:42 CDT CPT-25287 Abd single AP View - XRAY USE ONLY 11:35:07 CDT CPT-75382 Postop F/U Visit 10:30:43 CDT CPT-A4357 Overnight urinary bag 10:24:50 CDT CPT-A4340 Indwell urin cath coude 10:24:50 CDT CPT-20898 Insert temp indwelling bld cath comp 10:24:50 CDT 01/14 CPT-A4340 Indwell urin cath coude 15:42:37 CDT CPT-70832 Postop F/U Visit 20:56:46 CDT CPT-96851 Aspiration hydrocele 15:23:51 SUPERVISOR RIDES CPT-LR Lesion Removal 14:01:01 CDT CPT-LR Lesion Removal 16:14:11 CDT CPT-42677 Postop F/U Visit 15:07:25 SUPERVISOR RIDES
--- OUTSIDE RECORDS SUMMARY | 2017-10-23 00:06 | XMS REPORT | Clinical Summary ---
Author Author Admin, NUZHAT Organization [facility] Address Unknown Phone Unavailable Allergies, [...] Coronary atherosclerosis of unspecified type of vessel, [place] or graft HYPERTENSION 401.9 Active SHASTA Rosenberg [...] by mouth daily as needed TRAMADOL HCL 38869737954 No Longer Active Mukund Rivera MD Active AMLODIPINE BESYLATE 10 MG TABS 1 tablet by mouth daily AMLODIPINE BESYLATE 21829268725 No Longer Active Mukund Rivera MD Active SIMVASTATIN 20 MG ORAL TABS 1 tab by mouth daily SIMVASTATIN 26372836089 No Longer Active Mukund Rivera MD Active PLAVIX 75 MG ORAL TABS 1 tab by mouth daily CLOPIDOGREL BISULFATE 14761321602 No Longer Active Mukund Rivera MD Active HYDROXYCHLOROQUINE SULFATE 200 MG TABS by mouth twice a day 12/15 HYDROXYCHLOROQUINE SULFATE 23345013983 No Longer Active Mukund Rivera MD Active CIPRO 500 MG TAB 1 tablet two times daily CIPROFLOXACIN HCL 64631420882 No Longer Active Mukund Rivera MD Active OMEPRAZOLE 20 MG CPDR 1 tablet by mouth daily, as needed OMEPRAZOLE 35777984816 No Longer Active J Cholo Rivera MD Active [employer] [facility] CAP[employer] Take one by mouth daily PROBIOTIC PRODUCT 94123783024 Active Ramos Myers MD Active KLOR-CON 10 10 MEQ CR-TABS Take one by mouth daily POTASSIUM CHLORIDE 56441787202 Active Ramos Myers MD Active FUROSEMIDE 20 MG TAB 1 tablet by mouth daily FUROSEMIDE 33263054437 Active Ramos Myers MD Active METHOTREXATE 2.5 MG TABS 6 tabs once a week METHOTREXATE SODIUM 34052954663 Active Ramos Myers MD Active DICLOFENAC SODIUM 75 MG TBEC Take one by mouth daily as needed DICLOFENAC SODIUM 30562568684 No Longer Active Ramos Myers MD Active SIMVASTATIN 20 MG TABS 1 tab daily at bedtime SIMVASTATIN 31774611666 No Longer Active Ramos Myers MD Active EQL VKVMLRWNAPS-WLFIESJLB-RQD 500-400-166 MG TABS Take one by mouth daily ACRNYADFTZR-JFBBMRVTDSJ-MNN 70264503242 Active Ramos Myers MD Active CALCIUM 1500 MG TAB Take one by mouth daily CALCIUM CARBONATE 77326839524 Active Ramos Myers MD Active B-12 1000 MCG CR-TABS Take one by mouth daily CYANOCOBALAMIN 50538103710 Active Ramos Myers MD Active VITAMIN B-6 100 MG TABS Take one by mouth daily PYRIDOXINE HCL 22254939714 Active Ramos Myers MD Active ASPIRIN 81 MG TAB 1 tablet by mouth daily ASPIRIN 88902606841 Active Ramos Myers MD Active FOLIC ACID 1 MG TABS Take one by mouth daily FOLIC ACID 39267977892 Active Ramos Myers MD Active HYDROCHLOROTHIAZIDE 25 MG TABS 1 tablet by mouth daily HYDROCHLOROTHIAZIDE 17023304672 Active Ramos Myers MD Active METOPROLOL SUCCINATE ER 25 MG AL92J-MNA Take one by mouth twice daily METOPROLOL SUCCINATE 95437473096 Active Ramos Myers MD Active SIMVASTATIN 20 MG TABS 1 tab daily at bedtime SIMVASTATIN 20 MG TABS 526991 SIMVASTATIN Inactive DICLOFENAC SODIUM 75 MG TBEC Take one by mouth daily as needed DICLOFENAC SODIUM 75 MG TBEC 797939 DICLOFENAC SODIUM Inactive OMEPRAZOLE 20 MG CPDR 1 tablet by mouth daily, as needed OMEPRAZOLE 20 MG CPDR 805320 OMEPRAZOLE Inactive HYDROXYCHLOROQUINE SULFATE 200 MG TABS by mouth twice a day 12/15 HYDROXYCHLOROQUINE SULFATE 200 MG TABS 159181 HYDROXYCHLOROQUINE SULFATE Inactive PLAVIX 75 MG ORAL TABS 1 tab by mouth daily PLAVIX 75 MG ORAL TABS 721796 CLOPIDOGREL BISULFATE Inactive SIMVASTATIN 20 MG ORAL TABS 1 tab by mouth daily SIMVASTATIN 20 MG ORAL TABS 166064 SIMVASTATIN Inactive AMLODIPINE BESYLATE 10 MG TABS 1 tablet by mouth daily AMLODIPINE BESYLATE 10 MG TABS 145564 AMLODIPINE BESYLATE Inactive TRAMADOL HCL 50 MG TABS Take one by mouth daily as needed TRAMADOL HCL 50 MG TABS 377243 TRAMADOL HCL Inactive CIPRO 500 MG TAB 1 tablet two times daily CIPRO 500 MG TAB 008097 CIPROFLOXACIN HCL Inactive Advance Directives Directive Description [...] negative Encounters Code Encounter Date Provider Facility CPT-27047 Level 3 Est. Patient 19:01:41 CDT Mukund Rivera MD [facility] CPT-31495 Level 3 Est. Patient 23:28:14 CDT Mukund Rivera MD [facility] CPT-26445 Level 3 Est. Patient 14:56:41 WANT AD SUPERVISOR Mukund Rivera MD [facility] CPT-80394 Level 3 Est. Patient 16:05:06 WANT AD SUPERVISOR Mukund Rivera MD [facility] CPT-62950 Level 3 Est. Patient 14:06:16 WANT AD SUPERVISOR Mukund Rivera MD [facility] CPT-80625 Level 3 New Patient 14:46:52 WANT AD SUPERVISOR Mukund Rivera MD [facility] CPT-86541 Level 2 Est. Patient 14:01:01 CDT Ramos Myers MD [facility] CPT-27166 Level 2 Est. Patient 16:14:11 CDT Ramos Myers MD [facility] CPT-77776 Level 2 Est. Patient 14:39:48 CDT Ramos Myers MD [facility] CPT-44993 Level 3 Est. Patient 10:13:26 WANT AD SUPERVISOR Ramos Myers MD [facility] Procedures Code Procedure Name Date Entry Date Standard Description CPT-04085 Postop F/U Visit 10:44:37 CDT CPT-45454 Abd single AP View - XRAY USE ONLY 09:47:35 CDT CPT-94032 Cystoscopy 19:01:42 CDT CPT-46435 Abd single AP View - XRAY USE ONLY 11:35:07 CDT CPT-25934 Postop F/U Visit 10:30:43 CDT CPT-A4357 Overnight urinary bag 10:24:50 CDT CPT-A4340 Indwell urin cath coude 10:24:50 CDT CPT-80307 Insert temp indwelling bld cath comp 10:24:50 CDT 01/14 CPT-A4340 Indwell urin cath coude 15:42:37 CDT CPT-18569 Postop F/U Visit 20:56:46 CDT CPT-46577 Aspiration hydrocele 15:23:51 WANT AD SUPERVISOR CPT-LR Lesion Removal 14:01:01 CDT CPT-LR Lesion Removal 16:14:11 CDT CPT-68745 Postop F/U Visit 15:07:25 WANT AD SUPERVISOR
--- OUTSIDE RECORDS SUMMARY | 2017-10-23 00:06 | XMS REPORT ---
Author Author [facility] Medical Staff Organization [facility] Address [address] [place], [place] [address] Phone [phone] Care Team Providers Care Special Education Professional Name Role Phone BRUNILDA BENAVIDES MD, PP [phone] Summary purpose TRANSITION OF CARE AUTO GENERATION [...] tests and/or laboratory data RESULTS Radiology Results [id number] MYOCARDIAL SPECT MULT PACs Image DATE OF EXAM: Aug 09 2015 [id number] SPECT MULTIPLE : RADIOLOGY REPORT DATE OF SERVICE: 08/09/15 HISTORY: Coronary artery disease, DVT, lower extremity edema,x3 bypass, hypertension EXERCISE STRESS AND RESTING MYOCARDIAL PERFUSION STUDY (TREADMILL CARDIOLITE STUDY) 1030 HOURS The patient initially is given 8.1 mCi of technetium 99m labeled Cardiolite intravenously. After a 67 minute delay, resting SPECT perfusion images are obtained. The patient is then exercised on a treadmill by the referring clinician. At maximal stress, the patient is given 24.5 mCi of technetium 99m labeled Cardiolite intravenously. After a 61 minute delay, gated stress SPECT perfusion images. On the stress and resting images there is a perfusion defect involving the inferior wall of the left ventricle on both the stress and resting images. The differential diagnosis would include a technical artifact due to this being a male patient versus an area of previous infarction. The patient apparently had a previous history of a previous MRI. On the stress images, however, there is also decreased perfusion along the interventricular septal region as well as anterior wall distally. On the resting images this area reperfuses so that this does represent reversible ischemia. Computer generation suggests that the fixed perfusion defect involves 9% myocardial and a reversible perfusion defect involves about 16% of the myocardium. On the gated study, the left ventricular ejection fraction is 48% which is somewhat decreased. 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 The remainder of the ford move fairly symmetrically. The area of paradoxical motion involves an area of reversible ischemia. The end-systolic volume is 72 cc with the end-diastolic volume being 139 cc. IMPRESSION: 1. There is a fixed perfusion defect involving the inferior wall of the left ventricle present on both the stress and resting images. The differential diagnosis includes a technical artifact versus the area of previous infarction. 2. There is decreased perfusion in the anterior wall as well as inferior half of the septal wall of the left ventricle. This reperfuses on the resting images and represents a fairly large area of reversible ischemia. 3. The left ventricular ejection fraction is only calculated at 48% which is minimally abnormal. 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 MD CARLITA Salazar/nh08/09/2015 14:14:00 / 08/09/2015 14:19:59 cc:Dr. Stevo Benavides This document has been electronically Signed by: On: [id number]:32:00 DUP DEEPAK UNILATERAL PACs Image DATE OF EXAM: Aug 09 2015 [id number] VENOUS DUPLEX-UNILATERAL- LEFT: RADIOLOGY REPORT DATE OF SERVICE: 08/09/15 HISTORY: Left lower extremity swelling for the past year, recent worsening. LEFT LOWER EXTREMITY VENOUS DOPPLER 1000 HOURS The lower extremity veins were evaluated with high resolution real time imaging, pulsed and color flow Doppler. There is normal spontaneous phasic flow in the common femoral, femoral, popliteal, posterior tibial, and greater saphenous veins. All deep vein segments are fully compressible. There is normal augmentation of flow with distal compression. No thrombi are evident. There are no significant varicosities. IMPRESSION: Negative left lower extremity venous Doppler. MD JULIEN Patterson/sonia08/09/2015 11:20:00 / 08/09/2015 11:27:16 cc:Dr. Stevo Santos This document has been electronically Signed by: On: DATE OF EXAM: Aug 09 2015 [id number] VENOUS DUPLEX-UNILATERAL- LEFT: RADIOLOGY REPORT DATE OF SERVICE: 08/09/15 HISTORY: Left lower extremity swelling for the past year, recent worsening. LEFT LOWER EXTREMITY VENOUS DOPPLER 1000 HOURS The lower extremity veins were evaluated with high resolution real time imaging, pulsed and color flow Doppler. There is normal spontaneous phasic flow in the common femoral, femoral, popliteal, posterior tibial, and greater saphenous veins. All deep vein segments are fully compressible. There is normal augmentation of flow with distal compression. No thrombi are evident. There are no significant varicosities. IMPRESSION: Negative left lower extremity venous Doppler. MD JULIEN Patterson/sonia08/09/2015 11:20:00 / 08/09/2015 11:27:16 cc:Dr. Stevo Santos This document has been electronically Signed by: MIKE LOU MD On: Aug 09:32P Result Amended on 2015-08-09 at 13:32:22. Previous status was MI. History of procedures Procedure Code Code Type Description Date Performed Performing Physician 26398 CPT-4 CARDIOVASCULAR STRESS TEST 08-09-2015 BRUNILDA BENAVIDES 89573 CPT-4 HT MUSCLE IMAGE SPECT, MULT 08-09-2015 BRUNILDA BENAVIDES A9500 CPT-4 TC99M SESTAMIBI 08-09-2015 BRUNILDA BENAVIDES 94166 CPT-4 EXTREMITY STUDY 08-09-2015 BRUNILDA BENAVIDES J2785 CPT-4 REGADENOSON INJECTION 08-09-2015 BRUNILDA BENAVIDES Functional status Functional Status Finding Observation Time IV Site Location LAC :35 IV Type peripheral :35 IV Site Information discontinued Comment: cath tip intact :35 IV Site Start Attmpt 1 times :45 IV Site Boyd 20 :35 IV Site Appearance WNL :35 IV Site Color clear :35 IV Site Patent yes :35 Dressing Changed yes :35 Dressing Type gauze :35 Nursing Note Florencia Caryswati spoke with Dr. Benavides and he said to have pt come up to his office. DC teaching provided to pt and his , understanding verbalized and pt escorted to Dr. Benavides's office. Pt denies further needs. [id number] Vital signs Type Value Date Height 74inches :21 Weight 183LB :21 Social history No Social History or smoking status observations were recorded for this visit. ( Unknown if ever smoked.) Treatment Plan No treatment plan text is available for this visit. Hospital discharge instructions Discharge Date/Time 08-09-15 10:45:00 Accompanied By Spouse Relationship spouse/signif other Dismissal Condition good Disposition on DC other (specify) Comment: to Dr. Benavides's office Valuables no DC Inst/Educ Give yes Follow up appt already scheduled
--- OUTSIDE RECORDS SUMMARY | 2017-10-23 00:07 | XMS REPORT | Clinical Summary ---
Author Author Admin, NUZHAT Organization [facility] Address Unknown Phone Unavailable Allergies, Adverse Reactions, [...] Coronary atherosclerosis of unspecified type of vessel, [place] or graft HYPERTENSION 401.9 Active SHASTA Rosenberg [...] by mouth daily as needed TRAMADOL HCL 96903294067 No Longer Active Mukund Rivera MD Active AMLODIPINE BESYLATE 10 MG TABS 1 tablet by mouth daily AMLODIPINE BESYLATE 29962105739 No Longer Active Mukund Rivera MD Active SIMVASTATIN 20 MG ORAL TABS 1 tab by mouth daily SIMVASTATIN 31149631922 No Longer Active Mukund Rivera MD Active PLAVIX 75 MG ORAL TABS 1 tab by mouth daily CLOPIDOGREL BISULFATE 72500138550 No Longer Active Mukund Rivera MD Active HYDROXYCHLOROQUINE SULFATE 200 MG TABS by mouth twice a day 12/15 HYDROXYCHLOROQUINE SULFATE 56188348237 No Longer Active Mukund Rivera MD Active CIPRO 500 MG TAB 1 tablet two times daily CIPROFLOXACIN HCL 23781153182 No Longer Active Mukund Rivera MD Active OMEPRAZOLE 20 MG CPDR 1 tablet by mouth daily, as needed OMEPRAZOLE 96642593793 No Longer Active Mukund Rivera MD Active [employer] CAP[employer] Take one by mouth daily PROBIOTIC PRODUCT 76830151247 Active Ramos Myers MD Active KLOR-CON 10 10 MEQ CR-TABS Take one by mouth daily POTASSIUM CHLORIDE 63252591878 Active Ramos Myers MD Active FUROSEMIDE 20 MG TAB 1 tablet by mouth daily FUROSEMIDE 24058684228 Active Ramos Myers MD Active METHOTREXATE 2.5 MG TABS 6 tabs once a week METHOTREXATE SODIUM 85540873013 Active Ramos Myers MD Active DICLOFENAC SODIUM 75 MG TBEC Take one by mouth daily as needed DICLOFENAC SODIUM 38027171871 No Longer Active Ramos Myers MD Active SIMVASTATIN 20 MG TABS 1 tab daily at bedtime SIMVASTATIN 67510083636 No Longer Active Ramos Myers MD Active EQL PQDDPXQBAAH-FTPCJZBLC-NHU 500-400-166 MG TABS Take one by mouth daily BUXNLAFIABK-RETIJHTUSEA-APT 92468764557 Active Ramos Myers MD Active CALCIUM 1500 MG TAB Take one by mouth daily CALCIUM CARBONATE 38903754337 Active Ramos Myers MD Active B-12 1000 MCG CR-TABS Take one by mouth daily CYANOCOBALAMIN 77474537225 Active Ramos Myers MD Active VITAMIN B-6 100 MG TABS Take one by mouth daily PYRIDOXINE HCL 63967771724 Active Ramos Myers MD Active ASPIRIN 81 MG TAB 1 tablet by mouth daily ASPIRIN 62143619752 Active Ramos Myers MD Active FOLIC ACID 1 MG TABS Take one by mouth daily FOLIC ACID 30390262460 Active Ramos Myers MD Active HYDROCHLOROTHIAZIDE 25 MG TABS 1 tablet by mouth daily HYDROCHLOROTHIAZIDE 48612196044 Active Ramos Myers MD Active METOPROLOL SUCCINATE ER 25 MG [id number] Take one by mouth twice daily METOPROLOL SUCCINATE 08489535023 Active Ramos Myers MD Active SIMVASTATIN 20 MG TABS 1 tab daily at bedtime SIMVASTATIN 20 MG TABS 483047 SIMVASTATIN Inactive DICLOFENAC SODIUM 75 MG TBEC Take one by mouth daily as needed DICLOFENAC SODIUM 75 MG TBEC 679504 DICLOFENAC SODIUM Inactive OMEPRAZOLE 20 MG CPDR 1 tablet by mouth daily, as needed OMEPRAZOLE 20 MG CPDR 950992 OMEPRAZOLE Inactive HYDROXYCHLOROQUINE SULFATE 200 MG TABS by mouth twice a day 12/15 HYDROXYCHLOROQUINE SULFATE 200 MG TABS 098071 HYDROXYCHLOROQUINE SULFATE Inactive PLAVIX 75 MG ORAL TABS 1 tab by mouth daily PLAVIX 75 MG ORAL TABS 398284 CLOPIDOGREL BISULFATE Inactive SIMVASTATIN 20 MG ORAL TABS 1 tab by mouth daily SIMVASTATIN 20 MG ORAL TABS 996238 SIMVASTATIN Inactive AMLODIPINE BESYLATE 10 MG TABS 1 tablet by mouth daily AMLODIPINE BESYLATE 10 MG TABS 173288 AMLODIPINE BESYLATE Inactive TRAMADOL HCL 50 MG TABS Take one by mouth daily as needed TRAMADOL HCL 50 MG TABS 848956 TRAMADOL HCL Inactive CIPRO 500 MG TAB 1 tablet two times daily CIPRO 500 MG TAB 769524 CIPROFLOXACIN HCL Inactive Advance Directives Directive Description [...] Measured Encounters Code Encounter Date Provider Facility CPT-38953 Level 3 Est. Patient 23:28:14 CDT Mukund Rivera MD [facility] CPT-78750 Level 3 Est. Patient 14:56:41 MITTEN SEWER Mukund Rivera MD [facility] CPT-62817 Level 3 Est. Patient 16:05:06 MITTEN SEWER Mukund Rivera MD [facility] CPT-98773 Level 3 Est. Patient 14:06:16 MITTEN SEWER Mukund Rivera MD [facility] CPT-81974 Level 3 New Patient 14:46:52 MITTEN SEWER Mukund Rivera MD [facility] CPT-00227 Level 2 Est. Patient 14:01:01 CDT Ramos Myers MD [facility] CPT-91346 Level 2 Est. Patient 16:14:11 CDT Ramos Myers MD [facility] CPT-06828 Level 2 Est. Patient 14:39:48 CDT Ramos Myers MD [facility] CPT-48097 Level 3 Est. Patient 10:13:26 MITTEN SEWER Ramos Myers MD [facility] Procedures Code Procedure Name Date Entry Date Standard Description CPT-A4357 Overnight urinary bag 10:24:50 CDT CPT-A4340 Indwell urin cath coude 10:24:50 CDT CPT-08041 Insert temp indwelling bld cath comp 10:24:50 CDT 01/14 CPT-A4340 Indwell urin cath coude 15:42:37 CDT CPT-19659 Postop F/U Visit 20:56:46 CDT CPT-52806 Aspiration hydrocele 15:23:51 MITTEN SEWER CPT-LR Lesion Removal 14:01:01 CDT CPT-LR Lesion Removal 16:14:11 CDT CPT-81585 Postop F/U Visit 15:07:25 MITTEN SEWER
--- OUTSIDE RECORDS SUMMARY | 2017-10-23 00:07 | XMS REPORT | Clinical Summary ---
Author Author Admin, NUZHAT Organization [facility] Address Unknown Phone Unavailable Allergies, Adverse [...] Coronary atherosclerosis of unspecified type of vessel, [place] or graft HYPERTENSION 401.9 Active SHASTA Rosenberg [...] 1 tablet two times daily CIPROFLOXACIN HCL 72861615050 Active Mukund Rivera MD Active PLAVIX 75 MG ORAL TABS 1 tab by mouth daily CLOPIDOGREL BISULFATE 35938220428 Active Mukund Rivera MD Active SIMVASTATIN 20 MG ORAL TABS 1 tab by mouth daily SIMVASTATIN 35182491580 Active Mukund Rivera MD Active OMEPRAZOLE 20 MG CPDR 1 tablet by mouth daily, as needed OMEPRAZOLE 53138189442 No Longer Active Mukund Rivera MD Active [employer] CAPS Take one by mouth daily PROBIOTIC PRODUCT 24940846220 Active Ramos Myers MD Active KLOR-CON 10 10 MEQ CR-TABS Take one by mouth daily POTASSIUM CHLORIDE 48002110185 Active Ramos Myers MD Active FUROSEMIDE 20 MG TAB 1 tablet by mouth daily FUROSEMIDE 85019554002 Active Ramos Myers MD Active HYDROXYCHLOROQUINE SULFATE 200 MG TABS by mouth twice a day HYDROXYCHLOROQUINE SULFATE 19854949923 Active Ramos Myers MD Active METHOTREXATE 2.5 MG TABS 6 tabs once a week METHOTREXATE SODIUM 94143157788 Active Ramos Myers MD Active DICLOFENAC SODIUM 75 MG TBEC Take one by mouth daily as needed DICLOFENAC SODIUM 74351543766 No Longer Active Ramos Myers MD Active SIMVASTATIN 20 MG TABS 1 tab daily at bedtime SIMVASTATIN 52183032882 No Longer Active Ramos Myers MD Active AMLODIPINE BESYLATE 10 MG TABS 1 tablet by mouth daily AMLODIPINE BESYLATE 37797207006 Active Ramos Myers MD Active EQL BHBLDEZARKV-XWDRHRTBX-SGJ 500-400-166 MG TABS Take one by mouth daily JSGCSRHWZGN-HGNBLACCIDW-QZU 53948894999 Active Ramos Myers MD Active CALCIUM 1500 MG TAB Take one by mouth daily CALCIUM CARBONATE 64248487763 Active Ramos Myers MD Active B-12 1000 MCG CR-TABS Take one by mouth daily CYANOCOBALAMIN 33294440761 Active Ramos Myers MD Active VITAMIN B-6 100 MG TABS Take one by mouth daily PYRIDOXINE HCL 12798077148 Active Ramos Myers MD Active ASPIRIN 81 MG TAB 1 tablet by mouth daily ASPIRIN 11521096906 Active Ramos Myers MD Active TRAMADOL HCL 50 MG TABS Take one by mouth daily as needed TRAMADOL HCL 07377279764 Active Ramos Myers MD Active FOLIC ACID 1 MG TABS Take one by mouth daily FOLIC ACID 55985421988 Active Ramos Myers MD Active HYDROCHLOROTHIAZIDE 25 MG TABS 1 tablet by mouth daily HYDROCHLOROTHIAZIDE 05448757284 Active Ramos Myers MD Active METOPROLOL SUCCINATE ER 25 MG [id number]-SSY Take one by mouth twice daily METOPROLOL SUCCINATE 45390877092 Active Ramos Myers MD Active SIMVASTATIN 20 MG TABS 1 tab daily at bedtime SIMVASTATIN 20 MG TABS 379292 SIMVASTATIN Inactive DICLOFENAC SODIUM 75 MG TBEC Take one by mouth daily as needed DICLOFENAC SODIUM 75 MG TBEC 243033 DICLOFENAC SODIUM Inactive OMEPRAZOLE 20 MG CPDR 1 tablet by mouth daily, as needed OMEPRAZOLE 20 MG CPDR 701104 OMEPRAZOLE Inactive Advance Directives Directive Description Start Date [...] Measured Encounters Code Encounter Date Provider Facility CPT-36809 Level 3 Est. Patient 14:06:16 BRAIN PICKER Mukund Rivera MD [facility] CPT-33676 Level 3 New Patient 14:46:52 BRAIN PICKER Mukund Rivera MD [facility] CPT-60852 Level 2 Est. Patient 14:01:01 CDT Ramos Myers MD [facility] CPT-81433 Level 2 Est. Patient 16:14:11 CDT Ramos Myers MD [facility] CPT-23066 Level 2 Est. Patient 14:39:48 CDT Ramos Myers MD [facility] CPT-88898 Level 3 Est. Patient 10:13:26 BRAIN PICKER Ramos Myers MD [facility] Procedures Code Procedure Name Date Entry Date Standard Description CPT-54601 Aspiration hydrocele 15:23:51 BRAIN PICKER CPT-LR Lesion Removal 14:01:01 CDT CPT-LR Lesion Removal 16:14:11 CDT CPT-77608 Postop F/U Visit 15:07:25 BRAIN PICKER
--- OUTSIDE RECORDS SUMMARY | 2017-10-23 00:07 | XMS REPORT | Clinical Summary ---
Author Author Admin, E Organization [facility] Address Unknown Phone Unavailable Allergies, Adverse Reactions, [...] Coronary atherosclerosis of unspecified type of vessel, [place] or graft HYPERTENSION 401.9 Active SHASTA Rosenberg [...] by mouth daily as needed TRAMADOL HCL 56615545874 No Longer Active Mukund Rivera MD Active AMLODIPINE BESYLATE 10 MG TABS 1 tablet by mouth daily AMLODIPINE BESYLATE 96536000050 No Longer Active Mukund Rivera MD Active SIMVASTATIN 20 MG ORAL TABS 1 tab by mouth daily SIMVASTATIN 51565295832 No Longer Active Mukund Rivera MD Active PLAVIX 75 MG ORAL TABS 1 tab by mouth daily CLOPIDOGREL BISULFATE 40588148642 No Longer Active Mukund Rivera MD Active HYDROXYCHLOROQUINE SULFATE 200 MG TABS by mouth twice a day 12/15 HYDROXYCHLOROQUINE SULFATE 58990221564 No Longer Active Mukund Rivera MD Active CIPRO 500 MG TAB 1 tablet two times daily CIPROFLOXACIN HCL 21411009639 No Longer Active Mukund Rivera MD Active OMEPRAZOLE 20 MG CPDR 1 tablet by mouth daily, as needed OMEPRAZOLE 87609200498 No Longer Active Mukund Rivera MD Active ORE[employer]Y [facility] CAPS Take one by mouth daily PROBIOTIC PRODUCT 44940669098 Active Ramos Myers MD Active KLOR-CON 10 10 MEQ CR-TABS Take one by mouth daily POTASSIUM CHLORIDE 43040041614 Active Ramos Myers MD Active FUROSEMIDE 20 MG TAB 1 tablet by mouth daily FUROSEMIDE 25700681340 Active Ramos Myers MD Active METHOTREXATE 2.5 MG TABS 6 tabs once a week METHOTREXATE SODIUM 66515442514 Active Ramos Myers MD Active DICLOFENAC SODIUM 75 MG TBEC Take one by mouth daily as needed DICLOFENAC SODIUM 47663736840 No Longer Active Ramos Myers MD Active SIMVASTATIN 20 MG TABS 1 tab daily at bedtime SIMVASTATIN 47213858090 No Longer Active Ramos Myers MD Active EQL [id number]-[id number]-VJD 500-400-166 MG TABS Take one by mouth daily OWVUFXYHRJW-[id number]-MZU 27619899601 Active Ramos Myers MD Active CALCIUM 1500 MG TAB Take one by mouth daily CALCIUM CARBONATE 72538321045 Active Ramos Myers MD Active B-12 1000 MCG CR-TABS Take one by mouth daily CYANOCOBALAMIN 30318636354 Active Ramos Myers MD Active VITAMIN B-6 100 MG TABS Take one by mouth daily PYRIDOXINE HCL 19926017444 Active Ramos Myers MD Active ASPIRIN 81 MG TAB 1 tablet by mouth daily ASPIRIN 24169362745 Active Ramos Myers MD Active FOLIC ACID 1 MG TABS Take one by mouth daily FOLIC ACID 72862659172 Active Ramos Myers MD Active HYDROCHLOROTHIAZIDE 25 MG TABS 1 tablet by mouth daily HYDROCHLOROTHIAZIDE 14271406410 Active Ramos Myers MD Active METOPROLOL SUCCINATE ER 25 MG [id number] Take one by mouth twice daily METOPROLOL SUCCINATE 79622522036 Active Ramos Myers MD Active SIMVASTATIN 20 MG TABS 1 tab daily at bedtime SIMVASTATIN 20 MG TABS 925227 SIMVASTATIN Inactive DICLOFENAC SODIUM 75 MG TBEC Take one by mouth daily as needed DICLOFENAC SODIUM 75 MG TBEC 944609 DICLOFENAC SODIUM Inactive OMEPRAZOLE 20 MG CPDR 1 tablet by mouth daily, as needed OMEPRAZOLE 20 MG CPDR 822092 OMEPRAZOLE Inactive HYDROXYCHLOROQUINE SULFATE 200 MG TABS by mouth twice a day 12/15 HYDROXYCHLOROQUINE SULFATE 200 MG TABS 727857 HYDROXYCHLOROQUINE SULFATE Inactive PLAVIX 75 MG ORAL TABS 1 tab by mouth daily PLAVIX 75 MG ORAL TABS 674306 CLOPIDOGREL BISULFATE Inactive SIMVASTATIN 20 MG ORAL TABS 1 tab by mouth daily SIMVASTATIN 20 MG ORAL TABS 661551 SIMVASTATIN Inactive AMLODIPINE BESYLATE 10 MG TABS 1 tablet by mouth daily AMLODIPINE BESYLATE 10 MG TABS 680039 AMLODIPINE BESYLATE Inactive TRAMADOL HCL 50 MG TABS Take one by mouth daily as needed TRAMADOL HCL 50 MG TABS 033577 TRAMADOL HCL Inactive CIPRO 500 MG TAB 1 tablet two times daily CIPRO 500 MG TAB 375258 CIPROFLOXACIN HCL Inactive Advance Directives Directive Description [...] negative Encounters Code Encounter Date Provider Facility CPT-40628 Level 3 Est. Patient 19:01:41 KARLIE Rivera MD [facility] CPT-20468 Level 3 Est. Patient 23:28:14 CDT Mukund Rivera MD [facility] CPT-70314 Level 3 Est. Patient 14:56:41 CLOUD DEVELOPER Mukund Rivera MD [facility] CPT-98866 Level 3 Est. Patient 16:05:06 CLOUD DEVELOPER Mukund Rivera MD [facility] CPT-31754 Level 3 Est. Patient 14:06:16 CLOUD DEVELOPER Mukund Rivera MD [facility] CPT-72473 Level 3 New Patient 14:46:52 CLOUD DEVELOPER Mukund Rivera MD [facility] CPT-75956 Level 2 Est. Patient 14:01:01 CDT Ramos Myers MD [facility] CPT-83312 Level 2 Est. Patient 16:14:11 CDT Ramos Myers MD [facility] CPT-67315 Level 2 Est. Patient 14:39:48 CDT Ramos Myers MD [facility] CPT-11270 Level 3 Est. Patient 10:13:26 CLOUD DEVELOPER Ramos Myers MD [facility] Procedures Code Procedure Name Date Entry Date Standard Description CPT-26511 Cystoscopy 19:01:42 CDT CPT-02426 Abd single AP View - XRAY USE ONLY 11:35:07 CDT CPT-15016 Postop F/U Visit 10:30:43 CDT CPT-A4357 Overnight urinary bag 10:24:50 CDT CPT-A4340 Indwell urin cath coude 10:24:50 CDT CPT-63321 Insert temp indwelling bld cath comp 10:24:50 CDT 01/14 CPT-A4340 Indwell urin cath coude 15:42:37 CDT CPT-65522 Postop F/U Visit 20:56:46 CDT CPT-95280 Aspiration hydrocele 15:23:51 CLOUD DEVELOPER CPT-LR Lesion Removal 14:01:01 CDT CPT-LR Lesion Removal 16:14:11 CDT CPT-37900 Postop F/U Visit 15:07:25 CLOUD DEVELOPER
--- OUTSIDE RECORDS SUMMARY | 2017-10-23 00:08 | XMS REPORT | Clinical Summary ---
[...] Description Annotate CORONARY HEART DISEASE 414.00 Active SHASAT Rosenberg Coronary atherosclerosis of unspecified type of vessel, [place] or graft HYPERTENSION 401.9 Active SHASTA Rosenberg [...] by mouth daily as needed TRAMADOL HCL 90308933099 No Longer Active Mukund Rivera MD Active AMLODIPINE BESYLATE 10 MG TABS 1 tablet by mouth daily AMLODIPINE BESYLATE 16880890576 No Longer Active Mukund Rivera MD Active SIMVASTATIN 20 MG ORAL TABS 1 tab by mouth daily SIMVASTATIN 61535395917 No Longer Active Mukund Rivera MD Active PLAVIX 75 MG ORAL TABS 1 tab by mouth daily CLOPIDOGREL BISULFATE 51927975406 No Longer Active Mukund Rivera MD Active HYDROXYCHLOROQUINE SULFATE 200 MG TABS by mouth twice a day 12/15 HYDROXYCHLOROQUINE SULFATE 28610390501 No Longer Active Mukund Rivera MD Active CIPRO 500 MG TAB 1 tablet two times daily CIPROFLOXACIN HCL 47311152672 No Longer Active Mukund Rivera MD Active OMEPRAZOLE 20 MG CPDR 1 tablet by mouth daily, as needed OMEPRAZOLE 59287013114 No Longer Active J Cholo Rivera MD Active [facility] [employer] Take one by mouth daily PROBIOTIC PRODUCT 52897676036 Active Ramos Myers MD Active KLOR-CON 10 10 MEQ CR-TABS Take one by mouth daily POTASSIUM CHLORIDE 19073514635 Active Ramos Myers MD Active FUROSEMIDE 20 MG TAB 1 tablet by mouth daily FUROSEMIDE 80459911804 Active Ramos Myers MD Active METHOTREXATE 2.5 MG TABS 6 tabs once a week METHOTREXATE SODIUM 25255290055 Active Ramos Myers MD Active DICLOFENAC SODIUM 75 MG TBEC Take one by mouth daily as needed DICLOFENAC SODIUM 50500596069 No Longer Active Ramos Myers MD Active SIMVASTATIN 20 MG TABS 1 tab daily at bedtime SIMVASTATIN 77135744715 No Longer Active Ramos Myers MD Active EQL ITJYJYFLETN-AMHDTPZBO-JSE 500-400-166 MG TABS Take one by mouth daily UIMRZUYYOPR-JPKMAAWPUYG-WMG 38465381625 Active Ramos Myers MD Active CALCIUM 1500 MG TAB Take one by mouth daily CALCIUM CARBONATE 74136441496 Active Ramos Myers MD Active B-12 1000 MCG CR-TABS Take one by mouth daily CYANOCOBALAMIN 68412707658 Active Ramos Myers MD Active VITAMIN B-6 100 MG TABS Take one by mouth daily PYRIDOXINE HCL 66856420760 Active Ramos Myers MD Active ASPIRIN 81 MG TAB 1 tablet by mouth daily ASPIRIN 57421721013 Active Ramos Myers MD Active FOLIC ACID 1 MG TABS Take one by mouth daily FOLIC ACID 66798535782 Active Ramos Myers MD Active HYDROCHLOROTHIAZIDE 25 MG TABS 1 tablet by mouth daily HYDROCHLOROTHIAZIDE 67838368946 Active Ramos Myers MD Active METOPROLOL SUCCINATE ER 25 MG [id number]-TWN Take one by mouth twice daily METOPROLOL SUCCINATE 62808408759 Active Ramos Myers MD Active SIMVASTATIN 20 MG TABS 1 tab daily at bedtime SIMVASTATIN 20 MG TABS 234141 SIMVASTATIN Inactive DICLOFENAC SODIUM 75 MG TBEC Take one by mouth daily as needed DICLOFENAC SODIUM 75 MG TBEC 859189 DICLOFENAC SODIUM Inactive OMEPRAZOLE 20 MG CPDR 1 tablet by mouth daily, as needed OMEPRAZOLE 20 MG CPDR 358532 OMEPRAZOLE Inactive HYDROXYCHLOROQUINE SULFATE 200 MG TABS by mouth twice a day 12/15 HYDROXYCHLOROQUINE SULFATE 200 MG TABS 005215 HYDROXYCHLOROQUINE SULFATE Inactive PLAVIX 75 MG ORAL TABS 1 tab by mouth daily PLAVIX 75 MG ORAL TABS 866810 CLOPIDOGREL BISULFATE Inactive SIMVASTATIN 20 MG ORAL TABS 1 tab by mouth daily SIMVASTATIN 20 MG ORAL TABS 276822 SIMVASTATIN Inactive AMLODIPINE BESYLATE 10 MG TABS 1 tablet by mouth daily AMLODIPINE BESYLATE 10 MG TABS 683326 AMLODIPINE BESYLATE Inactive TRAMADOL HCL 50 MG TABS Take one by mouth daily as needed TRAMADOL HCL 50 MG TABS 962841 TRAMADOL HCL Inactive CIPRO 500 MG TAB 1 tablet two times daily CIPRO 500 MG TAB 266274 CIPROFLOXACIN HCL Inactive Advance Directives Directive Description [...] negative Encounters Code Encounter Date Provider Facility CPT-40575 Level 3 Est. Patient 10:36:44 POLITICAL CONSULTANT Mukund Rivera MD [facility] CPT-75343 Level 3 Est. Patient 19:01:41 CDT Mukund Rivera MD [facility] CPT-35833 Level 3 Est. Patient 23:28:14 CDT Mukund Rivera MD [facility] CPT-45942 Level 3 Est. Patient 14:56:41 POLITICAL CONSULTANT Mukund Rivera MD [facility] CPT-76261 Level 3 Est. Patient 16:05:06 POLITICAL CONSULTANT Mukund Rivera MD [facility] CPT-34303 Level 3 Est. Patient 14:06:16 POLITICAL CONSULTANT Mukund Rivera MD [facility] CPT-47543 Level 3 New Patient 14:46:52 POLITICAL CONSULTANT Mukund Rivera MD [facility] CPT-91751 Level 2 Est. Patient 14:01:01 CDT Ramos Myers MD [facility] CPT-63583 Level 2 Est. Patient 16:14:11 CDT Ramos Myers MD [facility] CPT-78155 Level 2 Est. Patient 14:39:48 CDT Ramos Myers MD [facility] CPT-84540 Level 3 Est. Patient 10:13:26 POLITICAL CONSULTANT Ramos Myers MD [facility] Procedures Code Procedure Name Date Entry Date Standard Description CPT-51917 Abd single AP View - XRAY USE ONLY 09:40:50 POLITICAL CONSULTANT CPT-36446 Postop F/U Visit 10:44:37 CDT CPT-97470 Abd single AP View - XRAY USE ONLY 09:47:35 CDT CPT-88348 Cystoscopy 19:01:42 CDT CPT-05260 Abd single AP View - XRAY USE ONLY 11:35:07 CDT CPT-74023 Postop F/U Visit 10:30:43 CDT CPT-A4357 Overnight urinary bag 10:24:50 CDT CPT-A4340 Indwell urin cath coude 10:24:50 CDT CPT-87303 Insert temp indwelling bld cath comp 10:24:50 CDT 01/14 CPT-A4340 Indwell urin cath coude 15:42:37 CDT CPT-55718 Postop F/U Visit 20:56:46 CDT CPT-36944 Aspiration hydrocele 15:23:51 POLITICAL CONSULTANT CPT-LR Lesion Removal 14:01:01 CDT CPT-LR Lesion Removal 16:14:11 CDT CPT-61145 Postop F/U Visit 15:07:25 POLITICAL CONSULTANT
--- OUTSIDE RECORDS SUMMARY | 2017-10-23 00:08 | XMS REPORT | Clinical Summary ---
Author Author Admin, E Organization [facility] Address Unknown Phone Unavailable Allergies, Adverse [...] by mouth daily as needed TRAMADOL HCL 41062512461 No Longer Active Mukund Rivera MD Active AMLODIPINE BESYLATE 10 MG TABS 1 tablet by mouth daily AMLODIPINE BESYLATE 62335709566 No Longer Active Mukund Rivera MD Active SIMVASTATIN 20 MG ORAL TABS 1 tab by mouth daily SIMVASTATIN 43537583835 No Longer Active Mukund Rivera MD Active PLAVIX 75 MG ORAL TABS 1 tab by mouth daily CLOPIDOGREL BISULFATE 50492212698 No Longer Active Mukund Rivera MD Active HYDROXYCHLOROQUINE SULFATE 200 MG TABS by mouth twice a day 12/15 HYDROXYCHLOROQUINE SULFATE 21038511318 No Longer Active Mukund Rivera MD Active CIPRO 500 MG TAB 1 tablet two times daily CIPROFLOXACIN HCL 62110611547 No Longer Active Mukund Rivera MD Active OMEPRAZOLE 20 MG CPDR 1 tablet by mouth daily, as needed OMEPRAZOLE 42807386829 No Longer Active Mukund Rivera MD Active ORE[employer] [employer] Take one by mouth daily PROBIOTIC PRODUCT 91832562861 Active Ramos Myers MD Active KLOR-CON 10 10 MEQ CR-TABS Take one by mouth daily POTASSIUM CHLORIDE 96969932947 Active Ramos Myers MD Active FUROSEMIDE 20 MG TAB 1 tablet by mouth daily FUROSEMIDE 33573138389 Active Ramos Myers MD Active METHOTREXATE 2.5 MG TABS 6 tabs once a week METHOTREXATE SODIUM 59333131902 Active Ramos Myers MD Active DICLOFENAC SODIUM 75 MG TBEC Take one by mouth daily as needed DICLOFENAC SODIUM 63027097295 No Longer Active Ramos Myers MD Active SIMVASTATIN 20 MG TABS 1 tab daily at bedtime SIMVASTATIN 48199032761 No Longer Active Ramos Myers MD Active EQL ZVABNFNWWSQ-TCKHCQECC-ELN 500-400-166 MG TABS Take one by mouth daily [id number]-IBY 33117647809 Active Ramos Myers MD Active CALCIUM 1500 MG TAB Take one by mouth daily CALCIUM CARBONATE 42338160236 Active Ramos Myers MD Active B-12 1000 MCG CR-TABS Take one by mouth daily CYANOCOBALAMIN 38381914677 Active Ramos Myers MD Active VITAMIN B-6 100 MG TABS Take one by mouth daily PYRIDOXINE HCL 60858688030 Active Ramos Myers MD Active ASPIRIN 81 MG TAB 1 tablet by mouth daily ASPIRIN 80709170275 Active Ramos Myers MD Active FOLIC ACID 1 MG TABS Take one by mouth daily FOLIC ACID 48712009285 Active Ramos Myers MD Active HYDROCHLOROTHIAZIDE 25 MG TABS 1 tablet by mouth daily HYDROCHLOROTHIAZIDE 10201132589 Active Ramos Myers MD Active METOPROLOL SUCCINATE ER 25 MG [id number] Take one by mouth twice daily METOPROLOL SUCCINATE 55182220602 Active Ramos Myers MD Active SIMVASTATIN 20 MG TABS 1 tab daily at bedtime SIMVASTATIN 20 MG TABS 520289 SIMVASTATIN Inactive DICLOFENAC SODIUM 75 MG TBEC Take one by mouth daily as needed DICLOFENAC SODIUM 75 MG TBEC 892591 DICLOFENAC SODIUM Inactive OMEPRAZOLE 20 MG CPDR 1 tablet by mouth daily, as needed OMEPRAZOLE 20 MG CPDR 881282 OMEPRAZOLE Inactive HYDROXYCHLOROQUINE SULFATE 200 MG TABS by mouth twice a day 12/15 HYDROXYCHLOROQUINE SULFATE 200 MG TABS 549964 HYDROXYCHLOROQUINE SULFATE Inactive PLAVIX 75 MG ORAL TABS 1 tab by mouth daily PLAVIX 75 MG ORAL TABS 569803 CLOPIDOGREL BISULFATE Inactive SIMVASTATIN 20 MG ORAL TABS 1 tab by mouth daily SIMVASTATIN 20 MG ORAL TABS 160237 SIMVASTATIN Inactive AMLODIPINE BESYLATE 10 MG TABS 1 tablet by mouth daily AMLODIPINE BESYLATE 10 MG TABS 486839 AMLODIPINE BESYLATE Inactive TRAMADOL HCL 50 MG TABS Take one by mouth daily as needed TRAMADOL HCL 50 MG TABS 085805 TRAMADOL HCL Inactive CIPRO 500 MG TAB 1 tablet two times daily CIPRO 500 MG TAB 283123 CIPROFLOXACIN HCL Inactive Advance Directives Directive Description [...] Measured Encounters Code Encounter Date Provider Facility CPT-93408 Level 3 Est. Patient 23:28:14 CDT Mukund Rivera MD [facility] CPT-85513 Level 3 Est. Patient 14:56:41 RO[address] DRIVER Mukund Rivera MD [facility] CPT-11159 Level 3 Est. Patient 16:05:06 ROAD DRIVER Mukund Rivera MD [facility] CPT-01069 Level 3 Est. Patient 14:06:16 ROAD DRIVER Mukund Rivera MD [facility] CPT-16069 Level 3 New Patient 14:46:52 ROAD DRIVER Mukund Rivera MD [facility] CPT-01559 Level 2 Est. Patient 14:01:01 CDT Ramos Myers MD [facility] CPT-04974 Level 2 Est. Patient 16:14:11 CDT Ramos Myers MD [facility] CPT-61307 Level 2 Est. Patient 14:39:48 CDT Ramos Myers MD [facility] CPT-52321 Level 3 Est. Patient 10:13:26 ROAD DRIVER Ramos Myers MD [facility] Procedures Code Procedure Name Date Entry Date Standard Description CPT-A4357 Overnight urinary bag 10:24:50 CDT CPT-A4340 Indwell urin cath coude 10:24:50 CDT CPT-59868 Insert temp indwelling bld cath comp 10:24:50 CDT 01/14 CPT-A4340 Indwell urin cath coude 15:42:37 CDT CPT-14432 Postop F/U Visit 20:56:46 CDT CPT-28794 Aspiration hydrocele 15:23:51 RO[address] DRIVER CPT-LR Lesion Removal 14:01:01 CDT CPT-LR Lesion Removal 16:14:11 CDT CPT-18976 Postop F/U Visit 15:07:25 ROAD DRIVER
--- OUTSIDE RECORDS SUMMARY | 2017-10-23 00:09 | XMS REPORT ---
Author Author [facility] Medical Staff Organization [facility] Address [address] [place] [id number] Phone [phone] Summary purpose TRANSITION OF CARE AUTO GENERATION [...] tests and/or laboratory data RESULTS Radiology Results [id number] DUP ART LMT PACs Image DATE OF EXAM: 2014 [id number] ART DUPLEX LOW EXT LTD- RIGHT: RADIOLOGY [...] JULIEN Patterson/nd09/18/2015 11:44:00 / 09/18/2015 11:52:46 cc:Dr. Rebekah Crow This document has been electronically Signed by: On: DATE OF EXAM: 2014 [id number] ART DUPLEX LOW EXT LTD- RIGHT: RADIOLOGY [...] JULIEN Patterson/nd09/18/2015 11:44:00 / 09/18/2015 11:52:46 cc:Dr. Rebekah Crow This document has been electronically Signed by: MIKE LOU MD On: 20142:11P Result Amended on 2015-09-18 at 14:11:14. Previous status was [place]. History of procedures Procedure Code Code Type Description Date Performed Performing Physician [id number] CPT-4 LOWER EXTREMITY STUDY 09-18-2015 REBEKAH RCOW Functional status No functional or cognitive status [...]
--- OUTSIDE RECORDS SUMMARY | 2017-10-23 00:09 | XMS REPORT ---
Author Author [facility] [employer] [facility] Medical Staff Organization [facility] [employer] [facility] Address [address] [place] [id number] Phone [phone] Summary purpose TRANSITION OF CARE AUTO GENERATION [...] tests and/or laboratory data RESULTS Radiology Results [id number] DUP ART LMT PACs Image DATE OF EXAM: 2014 [id number] ART DUPLEX LOW EXT LTD- RIGHT: RADIOLOGY [...] pseudoaneurysm or other vascular complication. MD JULIEN Patterson/ct08/23/2015 12:19:00 / 08/23/2015 12:54:42 cc:Dr. Denisse Aguayo This document has been electronically Signed by: On: DATE OF EXAM: 2014 [id number] ART DUPLEX LOW EXT LTD- RIGHT: RADIOLOGY [...] pseudoaneurysm or other vascular complication. MD JULIEN Patterson/ct08/23/2015 12:19:00 / 08/23/2015 12:54:42 cc:Dr. Denisse Aguayo This document has been electronically Signed by: MIKE LOU MD On: 20142:44P Result Amended on 2015-08-23 at 14:44:41. Previous status was [place]. History of procedures No procedures recorded for [...]
--- OUTSIDE RECORDS SUMMARY | 2017-10-23 00:09 | XMS REPORT | Clinical Summary ---
Author Author Admin, E Organization [facility] Address Unknown Phone Unavailable Allergies, Adverse [...] Coronary atherosclerosis of unspecified type of vessel, [place] or graft HYPERTENSION 401.9 Active SHASTA Rosenberg [...] by mouth daily as needed TRAMADOL HCL 67655373599 No Longer Active Mukund Rivera MD Active AMLODIPINE BESYLATE 10 MG TABS 1 tablet by mouth daily AMLODIPINE BESYLATE 33450570539 No Longer Active Mukund Rivera MD Active SIMVASTATIN 20 MG ORAL TABS 1 tab by mouth daily SIMVASTATIN 77657896915 No Longer Active Mkuund Rivera MD Active PLAVIX 75 MG ORAL TABS 1 tab by mouth daily CLOPIDOGREL BISULFATE 00079406123 No Longer Active Mukund Rivera MD Active HYDROXYCHLOROQUINE SULFATE 200 MG TABS by mouth twice a day 12/15 HYDROXYCHLOROQUINE SULFATE 79281291189 No Longer Active Mukund Rivera MD Active CIPRO 500 MG TAB 1 tablet two times daily CIPROFLOXACIN HCL 76607416477 No Longer Active Mukund Rivera MD Active OMEPRAZOLE 20 MG CPDR 1 tablet by mouth daily, as needed OMEPRAZOLE 19496848720 No Longer Active Mukund Rivera MD Active [employer] [facility] [employer] Take one by mouth daily PROBIOTIC PRODUCT 96099628085 Active Ramos Myers MD Active KLOR-CON 10 10 MEQ CR-TABS Take one by mouth daily POTASSIUM CHLORIDE 87908010771 Active Ramos Myers MD Active FUROSEMIDE 20 MG TAB 1 tablet by mouth daily FUROSEMIDE 97479152483 Active Ramos Myers MD Active METHOTREXATE 2.5 MG TABS 6 tabs once a week METHOTREXATE SODIUM 17822246799 Active Ramos Myers MD Active DICLOFENAC SODIUM 75 MG TBEC Take one by mouth daily as needed DICLOFENAC SODIUM 05421392885 No Longer Active Ramos Myers MD Active SIMVASTATIN 20 MG TABS 1 tab daily at bedtime SIMVASTATIN 97808670847 No Longer Active Ramos Myers MD Active EQL VSOUQXQPBBH-XHEXOUPJD-EBM 500-400-166 MG TABS Take one by mouth daily [id number]-FQUOVYAUGMS-DXI 98461947012 Active Ramos Myers MD Active CALCIUM 1500 MG TAB Take one by mouth daily CALCIUM CARBONATE 36367355561 Active Ramos Myers MD Active B-12 1000 MCG CR-TABS Take one by mouth daily CYANOCOBALAMIN 02828479701 Active Ramos Myers MD Active VITAMIN B-6 100 MG TABS Take one by mouth daily PYRIDOXINE HCL 22982766365 Active Ramos Myers MD Active ASPIRIN 81 MG TAB 1 tablet by mouth daily ASPIRIN 02509853519 Active Ramos Myers MD Active FOLIC ACID 1 MG TABS Take one by mouth daily FOLIC ACID 84113266286 Active Ramos Myers MD Active HYDROCHLOROTHIAZIDE 25 MG TABS 1 tablet by mouth daily HYDROCHLOROTHIAZIDE 35939476627 Active Ramos Myers MD Active METOPROLOL SUCCINATE ER 25 MG [id number]-YHR Take one by mouth twice daily METOPROLOL SUCCINATE 31606277029 Active Ramos Myers MD Active SIMVASTATIN 20 MG TABS 1 tab daily at bedtime SIMVASTATIN 20 MG TABS 124952 SIMVASTATIN Inactive DICLOFENAC SODIUM 75 MG TBEC Take one by mouth daily as needed DICLOFENAC SODIUM 75 MG TBEC 504534 DICLOFENAC SODIUM Inactive OMEPRAZOLE 20 MG CPDR 1 tablet by mouth daily, as needed OMEPRAZOLE 20 MG CPDR 411625 OMEPRAZOLE Inactive HYDROXYCHLOROQUINE SULFATE 200 MG TABS by mouth twice a day 12/15 HYDROXYCHLOROQUINE SULFATE 200 MG TABS 747883 HYDROXYCHLOROQUINE SULFATE Inactive PLAVIX 75 MG ORAL TABS 1 tab by mouth daily PLAVIX 75 MG ORAL TABS 000636 CLOPIDOGREL BISULFATE Inactive SIMVASTATIN 20 MG ORAL TABS 1 tab by mouth daily SIMVASTATIN 20 MG ORAL TABS 296251 SIMVASTATIN Inactive AMLODIPINE BESYLATE 10 MG TABS 1 tablet by mouth daily AMLODIPINE BESYLATE 10 MG TABS 048389 AMLODIPINE BESYLATE Inactive TRAMADOL HCL 50 MG TABS Take one by mouth daily as needed TRAMADOL HCL 50 MG TABS 517860 TRAMADOL HCL Inactive CIPRO 500 MG TAB 1 tablet two times daily CIPRO 500 MG TAB 366386 CIPROFLOXACIN HCL Inactive Advance Directives Directive Description [...] Measured Encounters Code Encounter Date Provider Facility CPT-55683 Level 3 Est. Patient 23:28:14 CDT Mukund Rivera MD [facility] CPT-68000 Level 3 Est. Patient 14:56:41 WOUND NURSE Mukund Rivera MD [facility] CPT-20342 Level 3 Est. Patient 16:05:06 WOUND NURSE Mukund Rivera MD [facility] CPT-01295 Level 3 Est. Patient 14:06:16 WOUND NURSE Mukund Rivera MD [facility] CPT-50526 Level 3 New Patient 14:46:52 WOUND NURSE Mukund Rivera MD [facility] CPT-51995 Level 2 Est. Patient 14:01:01 CDT Ramos Myers MD [facility] CPT-51593 Level 2 Est. Patient 16:14:11 CDT Ramos Myers MD [facility] CPT-37123 Level 2 Est. Patient 14:39:48 CDT Ramos Myers MD [facility] CPT-55937 Level 3 Est. Patient 10:13:26 WOUND NURSE Ramos Myers MD [facility] Procedures Code Procedure Name Date Entry Date Standard Description CPT-A4357 Overnight urinary bag 10:24:50 CDT CPT-A4340 Indwell urin cath coude 10:24:50 CDT CPT-19413 Insert temp indwelling bld cath comp 10:24:50 CDT 01/14 CPT-A4340 Indwell urin cath coude 15:42:37 CDT CPT-52816 Postop F/U Visit 20:56:46 CDT CPT-63412 Aspiration hydrocele 15:23:51 WOUND NURSE CPT-LR Lesion Removal 14:01:01 CDT CPT-LR Lesion Removal 16:14:11 CDT CPT-09445 Postop F/U Visit 15:07:25 WOUND NURSE
--- OUTSIDE RECORDS SUMMARY | 2017-10-23 00:09 | XMS REPORT | Clinical Summary ---
Author Author Admin, NUZHAT Organization [facility] Address Unknown Phone Unavailable Allergies, Adverse [...] Coronary atherosclerosis of unspecified type of vessel, [place] or graft HYPERTENSION 401.9 Active SHASTA Rosenberg [...] mouth twice a day 12/15 HYDROXYCHLOROQUINE SULFATE 75185019505 No Longer Active Mukund Rivera MD Active CIPRO 500 MG TAB 1 tablet two times daily CIPROFLOXACIN HCL 12175587394 No Longer Active Mukund Rivera MD Active PLAVIX 75 MG ORAL TABS 1 tab by mouth daily CLOPIDOGREL BISULFATE 61647721080 Active Mukund Rivera MD Active SIMVASTATIN 20 MG ORAL TABS 1 tab by mouth daily SIMVASTATIN 81839313304 Active Mukund Rivera MD Active OMEPRAZOLE 20 MG CPDR 1 tablet by mouth daily, as needed OMEPRAZOLE 11549574465 No Longer Active Mukund Rivera MD Active [employer] CAP[employer] Take one by mouth daily PROBIOTIC PRODUCT 95946553749 Active Ramos Myers MD Active KLOR-CON 10 10 MEQ CR-TABS Take one by mouth daily POTASSIUM CHLORIDE 09378552664 Active Ramos Myers MD Active FUROSEMIDE 20 MG TAB 1 tablet by mouth daily FUROSEMIDE 08625036734 Active Ramos Myers MD Active METHOTREXATE 2.5 MG TABS 6 tabs once a week METHOTREXATE SODIUM 48267479325 Active Ramos Myers MD Active DICLOFENAC SODIUM 75 MG TBEC Take one by mouth daily as needed DICLOFENAC SODIUM 71484297422 No Longer Active Ramos Myers MD Active SIMVASTATIN 20 MG TABS 1 tab daily at bedtime SIMVASTATIN 09432288879 No Longer Active Ramos Myers MD Active AMLODIPINE BESYLATE 10 MG TABS 1 tablet by mouth daily AMLODIPINE BESYLATE 71085505578 Active Ramos Myers MD Active EQL [id number]-UPISLWRJZ-BVD 500-400-166 MG TABS Take one by mouth daily [id number]-[id number]-JIK 13094234979 Active Ramos Myers MD Active CALCIUM 1500 MG TAB Take one by mouth daily CALCIUM CARBONATE 53881587938 Active Ramos Myers MD Active B-12 1000 MCG CR-TABS Take one by mouth daily CYANOCOBALAMIN 85966283891 Active Ramos Myers MD Active VITAMIN B-6 100 MG TABS Take one by mouth daily PYRIDOXINE HCL 42859597370 Active Ramos Myers MD Active ASPIRIN 81 MG TAB 1 tablet by mouth daily ASPIRIN 45137966555 Active Ramos Myers MD Active TRAMADOL HCL 50 MG TABS Take one by mouth daily as needed TRAMADOL HCL 39602987639 Active Ramos Myers MD Active FOLIC ACID 1 MG TABS Take one by mouth daily FOLIC ACID 98969220399 Active Ramos Myers MD Active HYDROCHLOROTHIAZIDE 25 MG TABS 1 tablet by mouth daily HYDROCHLOROTHIAZIDE 06979529524 Active Ramos Myers MD Active METOPROLOL SUCCINATE ER 25 MG [id number] Take one by mouth twice daily METOPROLOL SUCCINATE 85580398107 Active Ramos Myers MD Active SIMVASTATIN 20 MG TABS 1 tab daily at bedtime SIMVASTATIN 20 MG TABS 988964 SIMVASTATIN Inactive DICLOFENAC SODIUM 75 MG TBEC Take one by mouth daily as needed DICLOFENAC SODIUM 75 MG TBEC 381459 DICLOFENAC SODIUM Inactive OMEPRAZOLE 20 MG CPDR 1 tablet by mouth daily, as needed OMEPRAZOLE 20 MG CPDR 803185 OMEPRAZOLE Inactive HYDROXYCHLOROQUINE SULFATE 200 MG TABS by mouth twice a day 12/15 HYDROXYCHLOROQUINE SULFATE 200 MG TABS 789934 HYDROXYCHLOROQUINE SULFATE Inactive CIPRO 500 MG TAB 1 tablet two times daily CIPRO 500 MG TAB 840904 CIPROFLOXACIN HCL Inactive Advance Directives Directive Description [...] Measured Encounters Code Encounter Date Provider Facility CPT-93270 Level 3 Est. Patient 23:28:14 CDT Mukund Rivera MD [facility] CPT-18071 Level 3 Est. Patient 14:56:41 ACCOUNT MANAGER Mukund Rivera MD [facility] CPT-69040 Level 3 Est. Patient 16:05:06 ACCOUNT MANAGER Mukund Rivera MD [facility] CPT-16151 Level 3 Est. Patient 14:06:16 ACCOUNT MANAGER Mukund Rivera MD [facility] CPT-42119 Level 3 New Patient 14:46:52 ACCOUNT MANAGER Mukund Rivera MD [facility] CPT-46327 Level 2 Est. Patient 14:01:01 CDT Ramos Myers MD [facility] CPT-31869 Level 2 Est. Patient 16:14:11 CDT Ramos Myers MD [facility] CPT-94202 Level 2 Est. Patient 14:39:48 CDT Ramos Myers MD [facility] CPT-89604 Level 3 Est. Patient 10:13:26 ACCOUNT MANAGER Ramos Myers MD [facility] Procedures Code Procedure Name Date Entry Date Standard Description CPT-A4340 Radha abdul coude 15:42:37 CDT CPT-76964 Postop F/U Visit 20:56:46 CDT CPT-58159 Aspiration hydrocele 15:23:51 ACCOUNT MANAGER CPT-LR Lesion Removal 14:01:01 CDT CPT-LR Lesion Removal 16:14:11 CDT CPT-99522 Postop F/U Visit 15:07:25 ACCOUNT MANAGER
--- OUTSIDE RECORDS SUMMARY | 2017-10-23 00:09 | XMS REPORT ---
Author [facility] Organization [facility] Address [address] [place], [place] [address] Phone [phone] Care Team Providers Care Cemetery Counselor Name Role Phone BRUNILDA BENAVIDES MD, PP [phone] Summary purpose TRANSITION OF CARE AUTO GENERATION [...] tests and/or laboratory data RESULTS Radiology Results [id number] MYOCARDIAL SPECT MULT PACs Image DATE OF EXAM: Aug 09 2015 [id number] SPECT MULTIPLE : RADIOLOGY REPORT DATE OF [...] document has been electronically Signed by: On: [id number]:32:00 DUP DEEPAK UNILATERAL PACs Image DATE OF EXAM: Aug 09 2015 [id number] VENOUS DUPLEX-UNILATERAL- LEFT: RADIOLOGY REPORT DATE OF [...] left lower extremity venous Doppler. MD JULIEN Patterson/ri08/09/2015 11:20:00 / 08/09/2015 11:27:16 cc:Dr. Stevo Santos This document has been electronically Signed by: On: DATE OF EXAM: Aug 09 2015 [id number] VENOUS DUPLEX-UNILATERAL- LEFT: RADIOLOGY REPORT DATE OF [...] Signed by: MIKE LOU MD On: Aug 09 20151:32P Result Amended on 2015-08-09 at 13:32:22. Previous status was ID. History of procedures No procedures recorded for this patient visit. Functional status Functional Status Finding Observation Time IV Site Location LAC :35 IV Type peripheral :35 IV Site Information discontinued Comment: cath tip intact :35 IV Site Start Attmpt 1 times [id number] IV Site Boyd 20 :35 IV Site Appearance WNL :35 IV Site Color clear :35 IV Site Patent yes :35 Dressing Changed yes :35 Dressing Type gauze :35 Nursing Note Florencia Cantu spoke with Dr. Benavides and he said to have pt come up to his office. DC teaching provided to pt and his , understanding verbalized and pt escorted to Dr. Benavides's office. Pt denies further needs. :58 Vital signs Type Value Date Height 74inches [...]
--- OUTSIDE RECORDS SUMMARY | 2017-10-23 00:10 | XMS REPORT ---
Author Author [facility] Medical Staff Organization [facility] Address [address] [place], [place] [address] Phone [phone] Care Team Providers Care Conduit Cleaner Name Role Phone BRUNILDA BENAVIDES MD, PP [phone] Summary purpose TRANSITION OF CARE AUTO GENERATION [...] diagnostic tests and/or laboratory data RESULTS Chemistry [id number]:50:00 Result Normal Range Units Sodium 142 134-145 [...] C-Reactive Protein < 0.2 0-1 mg/dl Hematology :50:00 Result Normal Range Units WBC 8.3 4.8-10.8 103/uL RBC 4.8 4.7-6.1 106/uL HGB 14.8 13.0-18.0 g/dl HCT 45.2 41.9-52.0 % MCV H 94.8 80-94 FL MCH 31.0 27-31 pg MCHC L 32.7 33-37 g/dl RDW 13.8 11.5-15.5 % PLT 181 130-400 103/uL MPV 9.9 7.3-10.4 FL Hematology - Other (Misc) :50:00 Result Normal Range Units Sed Rate 4 0-20 Radiology Results :50:00 Result Normal Range Units MPV 9.9 7.3-10.4 FL History of procedures No procedures [...]
--- OUTSIDE RECORDS SUMMARY | 2017-10-23 00:10 | XMS REPORT ---
Author [facility] Organization [facility] Address [address] [place], [place] [address] Phone [phone] Summary purpose TRANSITION OF CARE AUTO GENERATION [...] tests and/or laboratory data RESULTS Routine Urinalysis [id number]:00 Result Normal Range Units Color YELLOW Clarity Clear Specific [place] 1.015 1.003-1.035 pH 6.5 4.5-8.0 Glucose NEGATIVE [...] C-Reactive Protein < 0.2 0-1 mg/dl Hematology [id number]:15:00 Result Normal Range Units WBC 8.0 4.8-10.8 103/uL RBC 4.7 4.7-6.1 106/uL HGB 15.2 13.0-18.0 g/dl HCT 45.2 41.9-52.0 % MCV H 95.8 80-94 FL MCH H 32.2 27-31 pg MCHC 33.6 33-37 g/dl RDW 14.3 11.5-15.5 % PLT 187 130-400 103/uL MPV 9.8 7.3-10.4 FL Neutro % 67.1 40-70 % Lymph % L 17.1 20-40 % [place] % H 11.4 0-10.0 % Eos % 3.8 0-7.0 % Baso % 0.5 0-2 % Neutro # 5.4 1.5-7.5 103/uL Lymph # 1.4 0.9-4.0 103/uL [place] # H 0.9 0-0.8 103/uL Eos # 0.3 0-0.6 103/uL Baso # 0.0 0-0.1 103/uL [facility] :15:00 Result Normal Range Units PSA 0.41 [...] should be interpreted with caution. Body Fluid 15:00 Result Normal Range Units pH 6.5 4.5-8.0 Hematology - Other (Misc) 15: Result Normal Range Units Sed Rate 3 0-20 Thyroid Testing :00 Result Normal Range Units TSH 1.85 0.36-3.74 uIU/mL Radiology Results 15:00 Result Normal Range Units MPV 9.8 7.3-10.4 FL History of procedures No procedures [...]
--- OUTSIDE RECORDS SUMMARY | 2017-10-23 00:10 | XMS REPORT | Clinical Summary ---
Author Author Admin, E Organization [facility] [...] Coronary atherosclerosis of unspecified type of vessel, pala or graft HYPERTENSION 401.9 Active SHASTA Rosenberg [...] 1 tablet two times daily CIPROFLOXACIN HCL 21764260217 No Longer Active Mukund Rivera MD Active PLAVIX 75 MG ORAL TABS 1 tab by mouth daily CLOPIDOGREL BISULFATE 28205356641 Active Mukund Rivera MD Active SIMVASTATIN 20 MG ORAL TABS 1 tab by mouth daily SIMVASTATIN 92289348029 Active Mukund Rivera MD Active OMEPRAZOLE 20 MG CPDR 1 tablet by mouth daily, as needed OMEPRAZOLE 79689354678 No Longer Active Mukund Rivera MD Active [employer] CAPS Take one by mouth daily PROBIOTIC PRODUCT 57953084125 Active Ramos Myers MD Active KLOR-CON 10 10 MEQ CR-TABS Take one by mouth daily POTASSIUM CHLORIDE 24724797221 Active Ramos Myers MD Active FUROSEMIDE 20 MG TAB 1 tablet by mouth daily FUROSEMIDE 61740981948 Active Ramos Myers MD Active HYDROXYCHLOROQUINE SULFATE 200 MG TABS by mouth twice a day HYDROXYCHLOROQUINE SULFATE 63910073548 Active Ramos Myers MD Active METHOTREXATE 2.5 MG TABS 6 tabs once a week METHOTREXATE SODIUM 54909518100 Active Ramos Myers MD Active DICLOFENAC SODIUM 75 MG TBEC Take one by mouth daily as needed DICLOFENAC SODIUM 06110112759 No Longer Active Ramos Myers MD Active SIMVASTATIN 20 MG TABS 1 tab daily at bedtime SIMVASTATIN 33461201346 No Longer Active Ramos Myers MD Active AMLODIPINE BESYLATE 10 MG TABS 1 tablet by mouth daily AMLODIPINE BESYLATE 96629502122 Active Ramos Myers MD Active EQL [id number]-[id number]-IEB 500-400-166 MG TABS Take one by mouth daily NLRVJHAWZWJ-RMVYGRTVNIH-KKP 33642622095 Active Ramos Myers MD Active CALCIUM 1500 MG TAB Take one by mouth daily CALCIUM CARBONATE 82259067587 Active Ramos Myers MD Active B-12 1000 MCG CR-TABS Take one by mouth daily CYANOCOBALAMIN 75915280945 Active Ramos Myers MD Active VITAMIN B-6 100 MG TABS Take one by mouth daily PYRIDOXINE HCL 58899978415 Active Ramos Myers MD Active ASPIRIN 81 MG TAB 1 tablet by mouth daily ASPIRIN 00848467187 Active Ramos Myers MD Active TRAMADOL HCL 50 MG TABS Take one by mouth daily as needed TRAMADOL HCL 40952990262 Active Ramos Myers MD Active FOLIC ACID 1 MG TABS Take one by mouth daily FOLIC ACID 34757958037 Active Ramos Myers MD Active HYDROCHLOROTHIAZIDE 25 MG TABS 1 tablet by mouth daily HYDROCHLOROTHIAZIDE 35389826122 Active Ramos Myers MD Active METOPROLOL SUCCINATE ER 25 MG [id number] Take one by mouth twice daily METOPROLOL SUCCINATE 34234751187 Active Ramos Myers MD Active SIMVASTATIN 20 MG TABS 1 tab daily at bedtime SIMVASTATIN 20 MG TABS 444479 SIMVASTATIN Inactive DICLOFENAC SODIUM 75 MG TBEC Take one by mouth daily as needed DICLOFENAC SODIUM 75 MG TBEC 408631 DICLOFENAC SODIUM Inactive OMEPRAZOLE 20 MG CPDR 1 tablet by mouth daily, as needed OMEPRAZOLE 20 MG CPDR 537282 OMEPRAZOLE Inactive CIPRO 500 MG TAB 1 tablet two times daily CIPRO 500 MG TAB 269641 CIPROFLOXACIN HCL Inactive Advance Directives Directive Description Start Date PERMISSION TO [facility] WILL ON FILE Vital Signs Date Name Value Unit Range Description blood pressure, diastolic - 8462-4 71 mm[Hg] BP desai blood pressure, systolic - 8480-6 124 mm[Hg] BP sys temperature E&M 97.5 [degF] Body temperature weight E&M - 3141-9 181 [lb_av] Weight Measured blood pressure, diastolic - 8462-4 62 mm[Hg] [...] Measured Encounters Code Encounter Date Provider Facility CPT-47556 Level 3 Est. Patient 16:05:06 LINE SERVICE ATTENDANT Mukund Rivera MD [facility] CPT-37572 Level 3 Est. Patient 14:06:16 LINE SERVICE ATTENDANT Mukund Rivera MD [facility] CPT-66606 Level 3 New Patient 14:46:52 LINE SERVICE ATTENDANT Mukund Rivera MD [facility] CPT-99449 Level 2 Est. Patient 14:01:01 CDT Ramos Myers MD [facility] CPT-85019 Level 2 Est. Patient 16:14:11 CDT Ramos Myers MD [facility] CPT-19376 Level 2 Est. Patient 14:39:48 CDT Ramos Myers MD [facility] CPT-12110 Level 3 Est. Patient 10:13:26 LINE SERVICE ATTENDANT Ramos Myers MD [facility] Procedures Code Procedure Name Date Entry Date Standard Description CPT-59848 Aspiration hydrocele 15:23:51 LINE SERVICE ATTENDANT CPT-LR Lesion Removal 14:01:01 CDT CPT-LR Lesion Removal 16:14:11 CDT CPT-60841 Postop F/U Visit 15:07:25 LINE SERVICE ATTENDANT
--- OUTSIDE RECORDS SUMMARY | 2017-10-23 00:10 | XMS REPORT | Clinical Summary ---
[...] Coronary atherosclerosis of unspecified type of vessel, [place] or graft HYPERTENSION 401.9 Active SHASTA Rosenberg [...] by mouth daily as needed TRAMADOL HCL 35592065279 No Longer Active Mukund Rivera MD Active AMLODIPINE BESYLATE 10 MG TABS 1 tablet by mouth daily AMLODIPINE BESYLATE 46156094349 No Longer Active Mukund Rivera MD Active SIMVASTATIN 20 MG ORAL TABS 1 tab by mouth daily SIMVASTATIN 59381432152 No Longer Active Mukund Rivera MD Active PLAVIX 75 MG ORAL TABS 1 tab by mouth daily CLOPIDOGREL BISULFATE 46415531480 No Longer Active Mukund Rivera MD Active HYDROXYCHLOROQUINE SULFATE 200 MG TABS by mouth twice a day 12/15 HYDROXYCHLOROQUINE SULFATE 43545057699 No Longer Active Mukund Rivera MD Active CIPRO 500 MG TAB 1 tablet two times daily CIPROFLOXACIN HCL 46761454852 No Longer Active Mukund Rivera MD Active OMEPRAZOLE 20 MG CPDR 1 tablet by mouth daily, as needed OMEPRAZOLE 76055518037 No Longer Active Mukund Rivera MD Active [employer] Take one by mouth daily PROBIOTIC PRODUCT 84883759222 Active Ramos Myers MD Active KLOR-CON 10 10 MEQ CR-TABS Take one by mouth daily POTASSIUM CHLORIDE 69010117381 Active Ramos Myers MD Active FUROSEMIDE 20 MG TAB 1 tablet by mouth daily FUROSEMIDE 19756724897 Active Ramos Myers MD Active METHOTREXATE 2.5 MG TABS 6 tabs once a week METHOTREXATE SODIUM 27291800694 Active Ramos Myers MD Active DICLOFENAC SODIUM 75 MG TBEC Take one by mouth daily as needed DICLOFENAC SODIUM 57470535894 No Longer Active Ramos Myers MD Active SIMVASTATIN 20 MG TABS 1 tab daily at bedtime SIMVASTATIN 45322408988 No Longer Active Ramos Myers MD Active EQL YOZPURQUWKZ-PUUBHZSEN-ZQJ 500-400-166 MG TABS Take one by mouth daily HLYXSOCSTCK-[id number]-LJF 70212859776 Active Ramos Myers MD Active CALCIUM 1500 MG TAB Take one by mouth daily CALCIUM CARBONATE 43806673184 Active Ramos Myers MD Active B-12 1000 MCG CR-TABS Take one by mouth daily CYANOCOBALAMIN 12055620469 Active Ramos Myers MD Active VITAMIN B-6 100 MG TABS Take one by mouth daily PYRIDOXINE HCL 86884730144 Active Ramos Myers MD Active ASPIRIN 81 MG TAB 1 tablet by mouth daily ASPIRIN 38962367601 Active Ramos Myers MD Active FOLIC ACID 1 MG TABS Take one by mouth daily FOLIC ACID 15545949720 Active Ramos Myers MD Active HYDROCHLOROTHIAZIDE 25 MG TABS 1 tablet by mouth daily HYDROCHLOROTHIAZIDE 38642017023 Active Ramos Myers MD Active METOPROLOL SUCCINATE ER 25 MG [id number] Take one by mouth twice daily METOPROLOL SUCCINATE 96513242294 Active Ramos Myers MD Active SIMVASTATIN 20 MG TABS 1 tab daily at bedtime SIMVASTATIN 20 MG TABS 756134 SIMVASTATIN Inactive DICLOFENAC SODIUM 75 MG TBEC Take one by mouth daily as needed DICLOFENAC SODIUM 75 MG TBEC 569021 DICLOFENAC SODIUM Inactive OMEPRAZOLE 20 MG CPDR 1 tablet by mouth daily, as needed OMEPRAZOLE 20 MG CPDR 374224 OMEPRAZOLE Inactive HYDROXYCHLOROQUINE SULFATE 200 MG TABS by mouth twice a day 12/15 HYDROXYCHLOROQUINE SULFATE 200 MG TABS 428448 HYDROXYCHLOROQUINE SULFATE Inactive PLAVIX 75 MG ORAL TABS 1 tab by mouth daily PLAVIX 75 MG ORAL TABS 64327371789 CLOPIDOGREL BISULFATE Inactive SIMVASTATIN 20 MG ORAL TABS 1 tab by mouth daily SIMVASTATIN 20 MG ORAL TABS 568558 SIMVASTATIN Inactive AMLODIPINE BESYLATE 10 MG TABS 1 tablet by mouth daily AMLODIPINE BESYLATE 10 MG TABS 414811 AMLODIPINE BESYLATE Inactive TRAMADOL HCL 50 MG TABS Take one by mouth daily as needed TRAMADOL HCL 50 MG TABS 938290 TRAMADOL HCL Inactive CIPRO 500 MG TAB 1 tablet two times daily CIPRO 500 MG TAB 989411 CIPROFLOXACIN HCL Inactive Advance Directives Directive Description Start Date PERMISSION TO [facility] WILL ON FILE Vital Signs Date Name Value Unit Range Description blood pressure, diastolic - 8462-4 70 mm[Hg] BP desai blood pressure, systolic - 8480-6 125 mm[Hg] BP sys pulse rate E&M - 8867-4 70 /min Heart rate temperature E&M 98.4 [degF] Body temperature weight E&M - 3141-9 181 [lb_av] Weight Measured blood pressure, diastolic - 8462-4 72 mm[Hg] [...] Measured Encounters Code Encounter Date Provider Facility CPT-21527 Level 3 Est. Patient 23:28:14 CDT Mukund Rivera MD [facility] CPT-36244 Level 3 Est. Patient 14:56:41 APPLIED PSYCHOLOGY CHAIR Mukund Rivera MD [facility] CPT-70407 Level 3 Est. Patient 16:05:06 APPLIED PSYCHOLOGY CHAIR Mukund Rivera MD [facility] CPT-81606 Level 3 Est. Patient 14:06:16 APPLIED PSYCHOLOGY CHAIR Mukund Rivera MD [facility] CPT-04250 Level 3 New Patient 14:46:52 APPLIED PSYCHOLOGY CHAIR Mukund Rivera MD [facility] CPT-57817 Level 2 Est. Patient 14:01:01 CDT Ramos Myers MD [facility] CPT-23888 Level 2 Est. Patient 16:14:11 CDT Ramos Myers MD [facility] CPT-09594 Level 2 Est. Patient 14:39:48 CDT Ramos Myers MD [facility] CPT-91237 Level 3 Est. Patient 10:13:26 APPLIED PSYCHOLOGY CHAIR Ramos Myers MD [facility] Procedures Code Procedure Name Date Entry Date Standard Description CPT-54646 Postop F/U Visit 10:30:43 CDT CPT-A4357 Overnight urinary bag 10:24:50 CDT CPT-A4340 Indwell urin cath coude 10:24:50 CDT CPT-92205 Insert temp indwelling bld cath comp 10:24:50 CDT 01/14 CPT-A4340 Indwell urin cath coude 15:42:37 CDT CPT-60931 Postop F/U Visit 20:56:46 CDT CPT-02746 Aspiration hydrocele 15:23:51 APPLIED PSYCHOLOGY CHAIR CPT-LR Lesion Removal 14:01:01 CDT CPT-LR Lesion Removal 16:14:11 CDT CPT-29294 Postop F/U Visit 15:07:25 APPLIED PSYCHOLOGY CHAIR
--- OUTSIDE RECORDS SUMMARY | 2017-10-23 00:11 | XMS REPORT | Clinical Summary ---
Author Author Admin, NUZHAT Organization [facility] Address Unknown Phone Unavailable Allergies, Adverse Reactions, [...] Coronary atherosclerosis of unspecified type of vessel, [place] or graft HYPERTENSION 401.9 Active SHASTA Rosenberg [...] by mouth daily as needed TRAMADOL HCL 48095130387 No Longer Active Mukund Rivera MD Active AMLODIPINE BESYLATE 10 MG TABS 1 tablet by mouth daily AMLODIPINE BESYLATE 55305733168 No Longer Active Mukund Rivera MD Active SIMVASTATIN 20 MG ORAL TABS 1 tab by mouth daily SIMVASTATIN 94345064301 No Longer Active Mukund Rivera MD Active PLAVIX 75 MG ORAL TABS 1 tab by mouth daily CLOPIDOGREL BISULFATE 25763560149 No Longer Active Mukund Rivera MD Active HYDROXYCHLOROQUINE SULFATE 200 MG TABS by mouth twice a day 12/15 HYDROXYCHLOROQUINE SULFATE 82539118547 No Longer Active Mukund Rivera MD Active CIPRO 500 MG TAB 1 tablet two times daily CIPROFLOXACIN HCL 21878704330 No Longer Active Mukund Rivera MD Active OMEPRAZOLE 20 MG CPDR 1 tablet by mouth daily, as needed OMEPRAZOLE 55364369339 No Longer Active Mukund Rivera MD Active [facility] CAPS Take one by mouth daily PROBIOTIC PRODUCT 73802915227 Active Ramso Myers MD Active KLOR-CON 10 10 MEQ CR-TABS Take one by mouth daily POTASSIUM CHLORIDE 99941708935 Active Ramos Myers MD Active FUROSEMIDE 20 MG TAB 1 tablet by mouth daily FUROSEMIDE 02647047792 Active Ramos Myers MD Active METHOTREXATE 2.5 MG TABS 6 tabs once a week METHOTREXATE SODIUM 38695154624 Active Ramos Myers MD Active DICLOFENAC SODIUM 75 MG TBEC Take one by mouth daily as needed DICLOFENAC SODIUM 98407874146 No Longer Active Ramos Myers MD Active SIMVASTATIN 20 MG TABS 1 tab daily at bedtime SIMVASTATIN 33272800882 No Longer Active Ramos Myers MD Active EQL [id number] 500-400-166 MG TABS Take one by mouth daily [id number] 39998411677 Active Ramos Myers MD Active CALCIUM 1500 MG TAB Take one by mouth daily CALCIUM CARBONATE 85533827170 Active Ramos Myers MD Active B-12 1000 MCG CR-TABS Take one by mouth daily CYANOCOBALAMIN 16901656522 Active Ramos Myers MD Active VITAMIN B-6 100 MG TABS Take one by mouth daily PYRIDOXINE HCL 44911845888 Active Ramos Myers MD Active ASPIRIN 81 MG TAB 1 tablet by mouth daily ASPIRIN 50865702686 Active Ramos Myers MD Active FOLIC ACID 1 MG TABS Take one by mouth daily FOLIC ACID 56655092747 Active Ramos Myers MD Active HYDROCHLOROTHIAZIDE 25 MG TABS 1 tablet by mouth daily HYDROCHLOROTHIAZIDE 61255627251 Active Ramos Myers MD Active METOPROLOL SUCCINATE ER 25 MG [id number] Take one by mouth twice daily METOPROLOL SUCCINATE 23276313024 Active Ramos Myers MD Active SIMVASTATIN 20 MG TABS 1 tab daily at bedtime SIMVASTATIN 20 MG TABS 318504 SIMVASTATIN Inactive DICLOFENAC SODIUM 75 MG TBEC Take one by mouth daily as needed DICLOFENAC SODIUM 75 MG TBEC 618265 DICLOFENAC SODIUM Inactive OMEPRAZOLE 20 MG CPDR 1 tablet by mouth daily, as needed OMEPRAZOLE 20 MG CPDR 460552 OMEPRAZOLE Inactive HYDROXYCHLOROQUINE SULFATE 200 MG TABS by mouth twice a day 12/15 HYDROXYCHLOROQUINE SULFATE 200 MG TABS 917436 HYDROXYCHLOROQUINE SULFATE Inactive PLAVIX 75 MG ORAL TABS 1 tab by mouth daily PLAVIX 75 MG ORAL TABS 219072 CLOPIDOGREL BISULFATE Inactive SIMVASTATIN 20 MG ORAL TABS 1 tab by mouth daily SIMVASTATIN 20 MG ORAL TABS 160412 SIMVASTATIN Inactive AMLODIPINE BESYLATE 10 MG TABS 1 tablet by mouth daily AMLODIPINE BESYLATE 10 MG TABS 976198 AMLODIPINE BESYLATE Inactive TRAMADOL HCL 50 MG TABS Take one by mouth daily as needed TRAMADOL HCL 50 MG TABS 931444 TRAMADOL HCL Inactive CIPRO 500 MG TAB 1 tablet two times daily CIPRO 500 MG TAB 431599 CIPROFLOXACIN HCL Inactive Advance Directives Directive Description [...] Measured Encounters Code Encounter Date Provider Facility CPT-19662 Level 3 Est. Patient 23:28:14 CDT Mukund Rivera MD [facility] CPT-50714 Level 3 Est. Patient 14:56:41 [employer]OVE [employer] Mukund Rivera MD [facility] CPT-85862 Level 3 Est. Patient 16:05:06 [employer] Mukund Rivera MD [facility] CPT-98541 Level 3 Est. Patient 14:06:16 [employer] Mukund Rivera MD [facility] CPT-20417 Level 3 New Patient 14:46:52 [employer] Mukund Rivera MD [facility] CPT-16769 Level 2 Est. Patient 14:01:01 CDT Ramos Myers MD [facility] CPT-60373 Level 2 Est. Patient 16:14:11 CDT Ramos Myers MD [facility] CPT-91253 Level 2 Est. Patient 14:39:48 CDT Ramos Myers MD [facility] CPT-43311 Level 3 Est. Patient 10:13:26 [employer] CLE[employer] Ramos Myers MD [facility] Procedures Code Procedure Name Date Entry Date Standard Description CPT-31242 Abd single AP View - XRAY USE ONLY 11:35:07 CDT CPT-29157 Postop F/U Visit 10:30:43 CDT CPT-A4357 Overnight urinary bag 10:24:50 CDT CPT-A4340 Indwell urin cath coude 10:24:50 CDT CPT-72598 Insert temp indwelling bld cath comp 10:24:50 CDT 01/14 CPT-A4340 Indwell urin cath coude 15:42:37 CDT CPT-88906 Postop F/U Visit 20:56:46 CDT CPT-55554 Aspiration hydrocele 15:23:51 GLOVE CLE[employer]ER CPT-LR Lesion Removal 14:01:01 CDT CPT-LR Lesion Removal 16:14:11 CDT CPT-24943 Postop F/U Visit 15:07:25 GLOVE CLE[employer]ER
--- OUTSIDE RECORDS SUMMARY | 2017-10-23 00:11 | XMS REPORT | Continuity of Care Document ---
Author Author [facility] Organization [facility] Address Unknown Phone Unavailable Allergies Active Description Code Type Severity Reaction Onset Reported/Identified Relationship to Patient Clinical Status Yes Bactrim 5086 Drug Allergy N/A itching Yes Cipro 1118 Drug Allergy N/A N/A Yes ciprofloxacin 2882 Drug Allergy N/A N/A Confirmed or Verified Yes Hyzaar 47397 Drug Allergy N/A Nausea~itching Yes Neosporin 3691 Drug Allergy N/ A just doesn't heal, redness Yes Tetracycline 2738 Drug Allergy N/A itching Yes Bactrim DS Drug N/A [id number] Yes Bactrim DS Drug N/A N/A Yes Cipro Drug N/A N/ A Yes Cipro Drug Mild [id number] Yes Neosporin Drug N/A [id number] Yes Neosporin Drug N/A N/A Yes tetracycline 66 Drug N/A [id number] Yes tetracycline 66 Drug N/A N/A Medications There is no data. Problems There is no data. Procedures Code Description [place] [address] CHEST X-RAY 01/16/2016 49228 COMPREHEN METABOLIC PANEL 01/30/2016 51657 COMPLETE CBC, AUTOMATED 01/30/2016 06516 RBC SED RATE, NONAUTOMATED 01/30/2016 03396 C-REACTIVE PROTEIN 01/30/2016 17261 HT MUSCLE IMAGE SPECT, MULT 03/10/2016 83183 CARDIOVASCULAR STRESS TEST 03/10/2016 A9500 TC99M SESTAMIBI 03/10/2016 J2785 REGADENOSON INJECTION 03/10/2016 Results Test Result Range D DIMER - 04/16/14 00:00 DDIM 276 NG/ML 0-400 BMP - 04/16/14 00:00 BCR 15.0 10-20 BUN 15 MG/DL 7-18 CA 10.1 MG/DL 8.4-10.2 CL 105 MEQ/L 98-107 CO2 29.5 MEQ/L 22-28 CREA 1.00 MG/DL 0.6-1.3 EGFR 73 eGFR >=60 GLU 89 MG/DL 70-105 K 3.9 MEQ/L 3.5-5.1 NA 140 MEQ/L 134-145 OSMSC 279.7 MOSML 280-300 Anion Gap 5.5 8-16 MG - 04/16/14 00:00 MG 2.1 MG/DL 1.7-2.8 PRO-BNP - 04/16/14 00:00 PRO-BNP 596 PG/ML 0-900 CBC WITH DIFF - 04/30/14 00:00 BASO% 0.4 % 0-2 EOS% 1.7 % 0-7.0 HCT 44.6 % 41.9-52.0 HGB 14.8 G/DL 13.0-18.0 LYMPH% 11.2 % 20-40 MCH 30.7 PG 27-31 MCHC 33.2 G/DL 33-37 MCV 92.5 FL 80-94 MONO% 6.0 % 0-10.0 MPV 9.7 FL 7.3-10.4 NEUTRO% 80.7 % 40-70 PLT 186 10^3u 130-400 RBC 4.8 10^6u 4.7-6.1 RDW 15.0 % 11.5-15.5 WBC 11.2 10^3u 4.8-10.8 NEUTRO# 9.1 10^3u 1.5-7.5 LYMPH# 1.3 10^3u 0.9-4.0 MONO# 0.7 10^3u 0-0.8 EOS# 0.2 10^3u 0-0.6 BASO# 0.0 10^3u 0-0.1 CMP - 04/30/14 00:00 ALB 4.1 G/DL 3.5-5 ALP 111 IU/L 50-136 ALT 35 IU/L 12-65 AST 25 IU/L 10-42 BCR 14.2 10-20 BUN 15 MG/DL 7-18 CA 9.6 MG/DL 8.4-10.2 CL 105 MEQ/L 98-107 CO2 30.9 MEQ/L 22-28 CREA 1.06 MG/DL 0.6-1.3 EGFR 68 eGFR >=60 GLU 100 MG/DL 70-105 K 3.6 MEQ/L 3.5-5.1 NA 142 MEQ/L 134-145 OSMSC 284.0 MOSML 280-300 TBIL 0.7 MG/DL 0.1-1.0 TP 7.4 G/DL 6.0-8.3 Albumin/Globulin Ratio 1.2 0-8 Anion Gap 6.1 8-16 CK - 04/30/14 00:00 CK 95 IU/L 39-308 CKMB - 04/30/14 00:00 CKMB 2.0 NG/ML 0-3.6 TROP - 04/30/14 00:00 TROP < 0.04 NG/ML 0.0-0.4 PRO-BNP - 04/30/14 00:00 PRO-BNP 338 PG/ML 0-900 CMP - 08/27/15 00:00 ALB 4.2 G/DL 3.5-5 ALP 79 IU/L 39-107 ALT 54 IU/L 12-65 AST 42 IU/L 10-42 BCR 16.7 10-20 BUN 19 MG/DL 7-18 CA 9.5 MG/DL 8.4-10.2 CL 104 MEQ/L 98-107 CO2 28.5 MEQ/L 22-28 CREA 1.14 MG/DL 0.6-1.3 EGFR 63 eGFR >=60 GLU 91 MG/DL 70-105 K 3.7 MEQ/L 3.5-5.1 NA 142 MEQ/L 134-145 OSMSC 285.0 MOSML 280-300 TBIL 0.8 MG/DL 0.1-1.0 TP 7.0 G/DL 6.0-8.3 Albumin/Globulin Ratio 1.5 0-8 Anion Gap 9.5 8-16 CRP - 08/27/15 00:00 CRP <=0.2 MG/DL 0-1 CBC WITH DIFF - 08/27/15 00:00 BASO% 0.6 % 0-2 EOS% 3.1 % 0-7.0 HCT 45.0 % 41.9-52.0 HGB 15.1 G/DL 13.0-18.0 LYMPH% 15.1 % 20-40 MCH 31.5 PG 27-31 MCHC 33.6 G/DL 33-37 MCV 93.9 FL 80-94 MONO% 9.7 % 0-10.0 MPV 10.0 FL 7.3-10.4 NEUTRO% 71.1 % 40-70 PLT 188 10^3u 130-400 RBC 4.8 10^6u 4.7-6.1 RDW 14.0 % 11.5-15.5 WBC 8.4 10^3u 4.8-10.8 NEUTRO# 5.9 10^3u 1.5-7.5 LYMPH# 1.3 10^3u 0.9-4.0 MONO# 0.8 10^3u 0-0.8 EOS# 0.3 10^3u 0-0.6 BASO# 0.1 10^3u 0-0.1 SEDR - 08/27/15 00:00 SEDR 3 0-20 IMM GRANULOCYTE % 0.4 % IMM GRANULOCYTE # 0.0 10^3u 0-5 CBC WITH DIFF - 10/23/15 00:00 BASO% 0.5 % 0-2 EOS% 3.8 % 0-7.0 HCT 45.2 % 41.9-52.0 HGB 15.2 G/DL 13.0-18.0 LYMPH% 17.1 % 20-40 MCH 32.2 PG 27-31 MCHC 33.6 G/DL 33-37 MCV 95.8 FL 80-94 MONO% 11.4 % 0-10.0 MPV 9.8 FL 7.3-10.4 NEUTRO% 67.1 % 40-70 PLT 187 10^3u 130-400 RBC 4.7 10^6u 4.7-6.1 RDW 14.3 % 11.5-15.5 WBC 8.0 10^3u 4.8-10.8 NEUTRO# 5.4 10^3u 1.5-7.5 LYMPH# 1.4 10^3u 0.9-4.0 MONO# 0.9 10^3u 0-0.8 EOS# 0.3 10^3u 0-0.6 BASO# 0.0 10^3u 0-0.1 SEDR - 10/23/15 00:00 SEDR 3 0-20 IMM GRANULOCYTE % 0.1 % IMM GRANULOCYTE # 0.0 10^3u 0-5 TSH - 10/23/15 00:00 TSH 1.85 UIUML 0.36-3.74 PSA TOTAL - 10/23/15 00:00 PSA TOTAL 0.41 NG/ML 0-4.0 LIPID - 10/23/15 00:00 CHOHDL 1.8 1-3.5 CHOL 117 MG/DL 120-200 HDL 64 MG/DL 32-72 LDL 56 MG/DL 30-100 TRIG 63 MG/DL 35-160 VLDL 13 MG/DL 5-40 CMP - 10/23/15 00:00 ALB 3.9 G/DL 3.5-5 ALP 79 IU/L 39-107 ALT 45 IU/L 12-65 AST 29 IU/L 10-42 BCR 15.2 10-20 BUN 15 MG/DL 7-18 CA 9.4 MG/DL 8.4-10.2 CL 104 MEQ/L 98-107 CO2 29.7 MEQ/L 22-28 CREA 0.99 MG/DL 0.6-1.3 EGFR 74 eGFR >=60 GLU 89 MG/DL 70-105 K 3.7 MEQ/L 3.5-5.1 NA 139 MEQ/L 134-145 OSMSC 277.8 MOSML 280-300 TBIL 0.7 MG/DL 0.1-1.0 TP 6.9 G/DL 6.0-8.3 Albumin/Globulin Ratio 1.3 0-8 Anion Gap 5.3 8-16 UA - 10/23/15 00:00 PH 6.5 4.5-8.0 SG 1.015 1.003-1.035 UABILI NEGATIVE UABLD NEGATIVE UACOLOR YEL UAGLU NEGATIVE UAKET NEGATIVE UALEUK NEGATIVE UANIT NEGATIVE UAURO 0.2 0-0.2 UCX NO CLARITY CL PROTEIN NEGATIVE UA WBC R05 UA RBC R05 SQUAMOUS EPITHELIAL CELLS FEW BACTERIA RARE MUCOUS OCC CRP - 10/23/15 00:00 CRP < 0.2 MG/DL 0-1 CMP - 01/30/16 00:00 ALB 3.5 G/DL 3.5-5 ALP 83 IU/L 39-107 ALT 46 IU/L 12-65 AST 30 IU/L 10-42 BCR 14.3 10-20 BUN 16 MG/DL 7-18 CA 8.8 MG/DL 8.4-10.2 CL 106 MEQ/L 98-107 CO2 32.1 MEQ/L 22-28 CREA 1.12 MG/DL 0.6-1.3 EGFR 64 eGFR >=60 GLU 100 MG/DL 70-105 K 3.9 MEQ/L 3.5-5.1 NA 142 MEQ/L 134-145 OSMSC 284.4 MOSML 280-300 TBIL 0.6 MG/DL 0.1-1.0 TP 6.3 G/DL 6.0-8.3 Albumin/Globulin Ratio 1.2 0-8 Anion Gap 3.9 8-16 CBC - 01/30/16 00:00 HCT 45.2 % 41.9-52.0 HGB 14.8 G/DL 13.0-18.0 MCH 31.0 PG 27-31 MCHC 32.7 G/DL 33-37 MCV 94.8 FL 80-94 MPV 9.9 FL 7.3-10.4 PLT 181 10^3u 130-400 RBC 4.8 10^6u 4.7-6.1 RDW 13.8 % 11.5-15.5 WBC 8.3 10^3u 4.8-10.8 CRP - 01/30/16 00:00 CRP < 0.2 MG/DL 0-1 SEDR - 01/30/16 00:00 SEDR 4 0-20 Encounters ACCT No. Visit Date/Time Discharge Status Pt. Type Provider Facility Loc./Unit Complaint [id number] 07/04/2014 09:53:21 07/04/2014 23:59:59 CLS Outpatient Abisai Chaidez [id number] 03/10/2016 06:24:00 03/10/2016 06:24:00 DIS Outpatient BRUNILDA BENAVIDES [facility] RAD [id number] 01/30/2016 09:27:00 01/30/2016 09:27:00 DIS Outpatient DONOVAN RUTHERFORD [facility] [place] [id number] 01/16/2016 11:00:00 01/16/2016 11:00:00 DIS Outpatient BRUNILDA BENAVIDES [facility] [place] [id number] 10/23/2015 09:00:00 10/23/2015 09:00:00 DIS Outpatient DONOVAN RUTHERFORD [facility] PA[place]CE [id number] 09/18/2015 10:07:00 09/18/2015 10:07:00 DIS Outpatient REBEKAH CROW [facility] RAD [id number] 08/27/2015 17:58:00 08/27/2015 17:58:00 DIS Outpatient MAKAYLA ZAHRAAMANDA Rose [facility] LAB [id number] 08/23/2015 10:20:00 08/23/2015 10:20:00 DIS Outpatient MAKAYLAZAHRAAMANDA Rose [facility] RAD [id number] 02/04/2015 10:03:00 02/04/2015 10:03:00 DIS Outpatient MAKAYLA ZAHRAAMANDA Rose [facility] RAD [id number] 12/29/2013 15:19:00 12/29/2013 15:19:00 DIS Outpatient MAKAYLA ZAHRAAMANDA Rose [facility] PANACE [id number] 09/16/2015 00:00:00 Document Registration [id number] 09/16/2015 00:00:00 Document Registration [id number] 09/16/2014 00:00:00 Document Registration [id number] 09/16/2013 00:00:00 Document Registration [id number] 09/16/2013 00:00:00 Document Registration [id number] 08/26/2017 09:48:00 ACT Unknown [id number] 09/27/2017 11:54:16 09/27/2017 23:59:59 DIS Outpatient Ever [facility] RAD chronic recurrent sinusitis [id number] 09/23/2017 11:57:12 09/23/2017 23:59:59 CLS Preadmit [facility] INF Chronic, recurrent sinusitis [id number] 09/23/2017 09:17:18 09/23/2017 23:59:59 DIS Outpatient Ever [facility] [id number] 09/23/2017 08:22:47 09/23/2017 23:59:59 DIS Outpatient [facility] [id number] 09/22/2017 08:30:00 09/22/2017 23:59:59 DIS Outpatient Nadeen Curtis [facility] [id number] 09/19/2017 22:26:00 09/19/2017 23:59:59 CLS Emergency [facility] ED CP, SOB [id number] 09/01/2017 10:43:14 09/01/2017 23:59:59 DIS Outpatient Ashley Zabala [facility] D[facility] [id number] 08/31/2017 16:01:40 08/31/2017 23:59:59 DIS Outpatient BRUNILDA BENAVIDES [facility] [id number] 08/19/2017 08:52:39 08/19/2017 23:59:59 DIS Outpatient JOSE [facility] [id number] 08/19/2017 08:51:07 08/19/2017 23:59:59 DIS Outpatient JOSE JAMES [facility] [id number] 07/28/2017 09:07:10 07/28/2017 23:59:59 DIS Outpatient Tiffanie Clark [facility] [id number] 07/07/2017 09:41:18 07/07/2017 23:59:59 DIS Outpatient JOSE JAMES [facility] [id number] 07/07/2017 09:30:00 07/07/2017 23:59:59 DIS Outpatient JOSE JAMES [facility] [id number] 05/07/2017 12:11:16 05/07/2017 23:59:59 CLS Preadmit YESSENIA QUIGLEY [facility] Surgery L ESWL [id number] 04/16/2017 10:46:14 04/16/2017 23:59:59 DIS Outpatient JAMES GARCIA [facility] [id number] 01/08/2017 08:37:00 01/08/2017 23:59:59 CLS Emergency [facility] ED post op [id number] 01/04/2017 09:15:00 01/04/2017 23:59:59 CLS Outpatient JAMES GARCIA [facility] [id number] 01/03/2017 09:21:00 01/03/2017 23:59:59 CLS Emergency [facility] ED post surgrey bleeding [id number] 12/30/2016 02:53:00 12/30/2016 23:59:59 CLS Emergency [facility] ED Unable to void [id number] 12/15/2016 15:42:10 12/15/2016 23:59:59 CLS Preadmit [facility] Surgery spermocilectomy [id number] 02/28/2017 02:02:19 Document Registration [id number] 01/19/2017 09:37:15 ACT V YESSENIA QUIGLEY [facility] OBS greenlight TURP [id number] 01/06/2017 05:37:35 Document Registration [id number] 01/04/2017 10:22:21 Document Registration [id number] 12/21/2016 12:35:56 Document Registration
== END 2017-10-22 11:50 | disposition home or self-care (01) ==
LOC: SDC 06:19
PROVIDERS: ATTEND Otolaryngology Otolaryngology/Facial Plastic Surgery
DX: J32.2 Chronic ethmoidal sinusitis (principal); J32.0 Chronic maxillary sinusitis; J34.3 Hypertrophy of nasal turbinates; I25.10 Atherosclerotic heart disease of native coronary artery without angina pectoris; I10 Essential (primary) hypertension; R05 Cough; Z95.5 Presence of coronary angioplasty implant and graft; Z95.1 Presence of aortocoronary bypass graft; Z87.891 Personal history of nicotine dependence; Z79.82 Long term (current) use of aspirin; Z79.02 Long term (current) use of antithrombotics/antiplatelets; Z79.899 Other long term (current) drug therapy

== ENCOUNTER 2019-07-21 05:36 | Outpatient (CLI) | payer MEDICARE ==
[~2019-07-21] VITALS: Ht 187 cm; Wt 75.0 kg
[~2019-07-21 05:36] MED LIST changes: +ACHD5005 PO; -AMLO10TA2 PO; +AMLO10TA7 PO; +AMOX-355 PO; -METH2.5T PO; +MTX2.5T PO; -NITR0.4T3 SL; +NITR0.4T42 SL; +PRD20T PO
[2019-07-21] MEDS ORDERED: ASCO100025 PO (13:13)
[2019-07-21] MEDS ORDERED: ASPI-586 PO (13:13)
[2019-07-21] MEDS ORDERED: POLY17PO6 PO (13:13)
[2019-07-21] MEDS ORDERED: CLOP75TA69 PO (13:13)
[2019-07-21] MEDS ORDERED: BUDE8.43 NS (13:13)
[2019-07-21] MEDS ORDERED: CETI10TA17 PO (13:13)
== END 2019-07-24 08:34 | disposition home or self-care (01) ==
LOC: PREOP 05:36
PROVIDERS: ATTEND Otolaryngology Otolaryngology/Facial Plastic Surgery
DX: Z01.818 Encounter for other preprocedural examination (principal)

== ENCOUNTER 2019-07-28 06:41 | Day surgery (SDC) | payer MEDICARE ==
[2019-07-28] VITALS (9 sets, daily range): BP systolic 122–172; BP diastolic 61–83
[~2019-07-28] VITALS: Ht 187 cm; Wt 75.0 kg
[~2019-07-28 06:41] MED LIST changes: +ASCO100025 PO; +ASPI-586 PO; +BUDE8.43 NS; +CETI10TA17 PO; +CLOP75TA69 PO; +POLY17PO6 PO
--- NOTE | 2019-07-28 07:08 | Progress Note-Pre Operative ---
Pre-Operative Progress Note H&P Reviewed The H&P was reviewed, patient examined and no changes noted. Date Seen by Provider: Jul 28, 2019 Time Seen by Provider: 07:00 Date H&P Reviewed: Jul 28, 2019 Time H&P Reviewed: 07:00 Pre-Operative Diagnosis: Chronic Left MARCELL MIKE HSIEH MD Jul 28, 2019 07:08
[2019-07-28] MEDS ORDERED: LACTATED RINGERS 1,000 ML IV PRN (07:19)
[2019-07-28] MEDS ORDERED: SEVOFLURANE (ULTANE) 15 ML INHAL SOLN ONE (07:53)
[2019-07-28] MEDS ORDERED: DEXAMETHASONE 10 MG/ML (DECADRON) 1 ML VIAL ONE (07:53)
[2019-07-28] MEDS ORDERED: ONDANSETRON 4 MG/2 ML (SDV) Z0FRAN ONE (07:53)
[2019-07-28] MEDS ORDERED: proPOfol 200 MG/20 ML (DIPRIVAN) VIAL IV ONE (07:53)
[2019-07-28] MEDS ORDERED: LIDOCAINE PF 2% 5 ML (XYLOCAINE) VIAL ONE (07:53)
[2019-07-28] MEDS ORDERED: fentaNYL INJECTION 100 MCG/2 ML AMP ONE (07:54)
--- NOTE | 2019-07-28 08:25 | Progress Note-Post Operative ---
Post-Operative Progess Note Surgeon (s)/Stone Lathe Operator (s) Surgeon MIKE HSIEH MD Stone Lathe Operator n/a Pre-Operative Diagnosis Chronic Left MARCELL Post-Operative Diagnosis same Post-Op Procedure Note Date of Procedure: Jul 28, 2019 Name of Procedure Performed: Left Myringotomy with T-Tube Description & Findings Description and Findings: n/a Anesthesia Type mask Estimated Blood Loss minimal Packing none. Specimen(s) collected/removed none MIKE HSIEH MD Jul 28, 2019 08:25
[2019-07-28] MEDS ORDERED: APAP 325 MG/10.15 ML LIQ (TYLENOL) UDC PO PRN (08:30)
[2019-07-28] MEDS ORDERED: ONDANSETRON 4 MG/2 ML (SDV) Z0FRAN IVP PRN (08:45)
[2019-07-28] MEDS ORDERED: morphine INJ 10 MG/ML 1ML (SYR OR VIAL) IVP ONE (08:45)
[2019-07-28] MEDS ORDERED: GENT5DRO30 LEFT EAR (09:14)
--- NOTE | 2019-07-28 09:43 | NUR ---
Initial visit with the pt, his and daughter. The pt said he has had surgeries before now, and this is minor comparatively. He and the family demonstrate positive attitude regarding upcoming procedure and appreciation for our visit.
== END 2019-07-28 09:55 | disposition home or self-care (01) ==
LOC: SDC 06:41
PROVIDERS: ATTEND Otolaryngology Otolaryngology/Facial Plastic Surgery
DX: H65.22 Chronic serous otitis media, left ear (principal); H65.32 Chronic mucoid otitis media, left ear; H70.12 Chronic mastoiditis, left ear; H92.12 Otorrhea, left ear; E78.5 Hyperlipidemia, unspecified; I25.10 Atherosclerotic heart disease of native coronary artery without angina pectoris; Z88.1 Allergy status to other antibiotic agents; Z88.2 Allergy status to sulfonamides; Z88.8 Allergy status to other drugs, medicaments and biological substances; Z95.1 Presence of aortocoronary bypass graft; Z90.89 Acquired absence of other organs
CPT/HCPCS: 87081